=== PATIENT | female | born 1945 | race Caucasian/White ===

== ENCOUNTER 2017-08-01 08:04 | Emergency (ER) | payer MEDICARE, OTHER ==
[2017-08-01 08:20] LABS: Appearance VERY CLOUDY (CLEAR); Bilirubin NEGATIVE (NEGATIVE); Blood 250 Ery/ul (0-5); Glucose NEGATIVE (NEGATIVE); Ketones NEGATIVE (NEGATIVE); Leukocyte Esterase 2+ (NEGATIVE); Nitrite POSITIVE (NEGATIVE); Protein,Urine Dip 300 (Negative); Urobilinogen NORMAL mg/dL (0-1)
[2017-08-01 08:26] LABS: Bacteria MODERATE /HPF (NEGATIVE)
--- NOTE | 2017-08-01 08:48 | ERPHSYRPT ---
- History of Present Illness Time Seen by Provider: 08/01/17 08:12 Source: patient, family Patient Subjective Stated Complaint: PT REPORTS LOW ABD ET BACK PAIN-BEGAN URINATING BLOOD VAMSHI 0630 THIS AM-PT HAS HX OF EPISODES LIKE THIS-PT REPORTS HER UROLOGIST DR NEL[place] IN [place] WAS SUPPOSED TO BE TAKING KEFLEX BUT IT UPSET HER STOMACH SO SHE STOPPED TAKING IT Triage Nursing Assessment: PT PINK WARM ET ROP-ERQNB-CAL TENDER TO PALP-OBVIOUS GROSS BLOOD IN URINE-RESP EASY ET NONLABORED Physician History: CC: blood in urine Hx: 72 y/o patient of Dr Reg Pink and Dr Nelson urology in [place]. She has hx of interstitial cystitis with recurrent blood and infection. Last treated with abtx a month ago. She was placed on keflex for suppression but was intolerant due to her stomach upset. She is allergic to sulfa. She now has recurrent blood in urine, burning and pressure. No fever, chills, back pain, or vomiting/nausea. She has DM. Timing/Duration: today Allergies/Adverse Reactions: Sulfa (Sulfonamide Antibiotics) [Sulfa(Sulfonamide Antibiotics)] Allergy (Severe , Verified 08/01/17 08:12) Hives Home Medications: Citalopram 20 mg PO DAILY 05/28/12 [History] Lisinopril 10 mg [Zestril 10 MG] 10 mg PO DAILY 02/15/13 [History] Amlodipine Besylate 10 mg [Norvasc 10 MG] 10 mg PO DAILY 03/15/13 [History] Atenolol/Chlorthalidone [Tenoretic 50 Tablet] 50 mg PO DAILY 03/15/13 [History] Calcium Carbonate/Vitamin D3 [Caltrate 600 W-D Tablet] 1 each PO DAILY 03/15/13 [History] Platinum-3S/Dha/Epa/Fish Oil [Fish Oil 1,200 mg Softgel] 1 each PO DAILY 03/15/13 [ History] Potassium Chloride [Micro-K] 8 meq PO DAILY 03/15/13 [History] Tramadol HCl 50 mg [Ultram 50 mg] 50 mg PO Q6HPRN PRN 03/15/13 [History] Psyllium Husk [Fiber] 1 cap PO DAILY 12/12/13 [History] Bumetanide 1 mg [Bumex 1 mg] 1 mg PO DAILY 01/24/14 [History] Omeprazole 20 MG [Prilosec 20 mg] 40 mg PO DAILY 01/24/14 [History] Famotidine 20 mg [Pepcid 20 MG] 20 mg PO DAILY 07/04/14 [History] Hx Tetanus, Diphtheria Vaccination/Date Given: Yes Hx Influenza Vaccination/Date Given: Yes Hx Pneumococcal Vaccination/Date Given: Yes - Review of Systems Constitutional: Malaise, No Fever, No Chills Eyes: No Symptoms Ears, Nose, & Throat: No Symptoms Respiratory: No Cough Cardiac: No Chest Pain Abdominal/Gastrointestinal: No Abdominal Pain, No Nausea, No Vomiting Genitourinary Symptoms: Dysuria, Frequency, Hematuria, Hesitancy, Urgency Musculoskeletal: No Back Pain Skin: No Rash Neurological: No Headache All Other Systems: Reviewed and Negative - Past Medical History Pertinent Past Medical History: Yes Neurological History: Peripheral Neuropathy ENT History: Cataracts Cardiac History: High Cholesterol, Hypertension Respiratory History: No Pertinent History Endocrine Medical History: Diabetes Type II Musculoskeletal History: No Pertinent History GI Medical History: Gallbladder Disease, GI Bleed, Ulcer History: Other Psycho-Social History: Anxiety Female Reproductive Disorders: No Pertinent History Other Medical History: interstitial nephritis, neck fusion with metal - Past Surgical History Past Surgical History: Yes Neuro Surgical History: No Pertinent History Cardiac: No Pertinent History Respiratory: No Pertinent History Gastrointestinal: Cholecystectomy Genitourinary: No Pertinent History Musculoskeletal: Orthopedic Surgery Female Surgical History: Hysterectomy Other Surgical History: rt knee surgery,Metal plate in neck - Social History Smoking Status: Never smoker Exposure to second hand smoke: No Drug Use: none Patient Lives Alone: No - Female History Hx Now: No - Nursing Vital Signs Nursing Vital Signs: Initial Vital Signs Temperature 97.7 F 08/01/17 08:18 Pulse Rate 71 08/01/17 08:18 Respiratory Rate 20 08/01/17 08:18 Blood Pressure 167/92 08/01/17 08:18 O2 Sat by Pulse Oximetry 97 08/01/17 08:18 Pain Scale Pain Intensity 10 - Physical Exam General Appearance: alert Eye Exam: PERRL/EOMI Ears, Nose, Throat Exam: normal ENT inspection, moist mucous membranes Neck Exam: normal inspection, non-tender, supple Respiratory Exam: normal breath sounds Cardiovascular Exam: regular rate/rhythm Gastrointestinal/Abdomen Exam: soft, No tenderness, No distention Extremity Exam: normal inspection, normal range of motion Neurologic Exam: alert, oriented x 3, cooperative Skin Exam: warm, dry, No rash SpO2 Interpretation: normal SpO2: 97 Oxygen Delivery: Room Air - Course Nursing assessment & vital signs reviewed: Yes Ordered Tests: Active Orders 24 hr Category Date Time Status Clean Catch Urine Specimen STAT Care 08/01/17 08:12 Active CULTURE,URINE Stat Lab 08/01/17 08:12 Received UA W/ MICROSCOPIC Stat Lab 08/01/17 08:12 Completed Lab/Rad Data: Laboratory Results 08/01/17 Range/Units 08:12 Ur Collection Type CLEAN CATCH Urine Color RED (YELLOW) Urine Appearance VERY CLOUDY (CLEAR) Urine pH 8.0 (5-6) Ur Specific [place] 1.010 (1.005-1.025) Urine Protein 300 (Negative) Urine Ketones NEGATIVE (NEGATIVE) Urine Blood 250 (0-5) Roshan/ul Urine Nitrite POSITIVE (NEGATIVE) Urine Bilirubin NEGATIVE (NEGATIVE) Urine Urobilinogen NORMAL (0-1) mg/dL Ur Leukocyte Esterase 2+ (NEGATIVE) Urine Microscopic RBC >100 (0-2) /HPF Urine Microscopic WBC 10-15 (0-5) /HPF Urine Bacteria MODERATE (NEGATIVE) /HPF Urine Culture Reflexed YES (NO) Urine Glucose NEGATIVE (NEGATIVE) mg/dL Specimen Received 08/01/17 0815 - Progress Progress Note: 08/01/17 08:45 Gross hematuria. UA appears to have infection with nitrites and 2+ leuk. She has had cipro in past and wants to take cipro and pyridium. Counseled pt/family regarding: lab results, diagnosis, need for follow-up - Departure Time of Disposition: 08:46 Departure Disposition: Home Clinical Impression: UTI (urinary tract infection), Hematuria, Interstitial cystitis Condition: Stable Critical Care Time: No Referrals: YAMILA PINK [Primary Care Provider] - Instructions: Hematuria, Urinary Tract Infection (UTI) Additional Instructions: Rx cipro to [facility] Rx pyridium to [facility] follow up with dr Nelson Return for vomiting, fever, or concerns. Prescriptions: Ciprofloxacin [Cipro 500 MG] 1 tab PO BID #20 tablet Phenazopyridine HCl 200 mg [Pyridium 200 mg] 1 tab PO TID #6 tablet
[2017-08-01 09:07] VITALS: BP 170/77; PULSE 80; O2SAT 99
== END 2017-08-01 09:09 | disposition home or self-care (01) ==
LOC: ED 08:04
DX: N39.0 Urinary tract infection, site not specified (principal); N30.11 Interstitial cystitis (chronic) with hematuria
CPT/HCPCS: 81000; 87086; 99281

== ENCOUNTER 2017-08-06 10:32 | Emergency (ER) | payer MEDICARE, OTHER ==
[2017-08-06 10:44] VITALS: O2SAT 99
[2017-08-06] MEDS ORDERED: Sodium Chloride 0.9% 1000 ML 1,000 ML IV STA (11:10)
[2017-08-06] MEDS ORDERED: Levofloxacin 500MG/100ML D5W 500 MG/100 ML BAG IV STA (11:14)
--- NOTE | 2017-08-06 11:19 | ERPHSYRPT ---
- History of Present Illness Time Seen by Provider: 08/06/17 11:00 Source: patient Exam Limitations: clinical condition Patient Subjective Stated Complaint: PT REPORTS HAVING BLOOD IN URINE BEGINNING THIS MORNING-PT HAD INCIDENT A FEW DAYS AGO FOR HEMATURIA ET WAS TX-CURRENTLY TAKING CIPRO-REPORTS INCREASED LOW BACK PAIN WITH NO FEVER-DENIES LIFTING OR PULLING DENIES INJURY Triage Nursing Assessment: PT PINK WARM ET [id number] WITH NO DIFFICULTIES-ABD SOFT ET TENDER TO PALP-DENIES DIFFICULTY WITH BOWELS Physician History: PATIENT WITH A HISTORY OF HYPERTENSION, AND INTERSTITIAL CYSTITIS, TREATED WITH ANTIBIOTIC 1 MONTH AGO, EVALUATED IN EMERGENCY ROOM ON 08/01/2017 FOR ONSET OF HEMATURIA, PLACED ONTO ANTIBIOTIC CIPRO 500MG BID FOR 10 DAYS AND PYRIDIUM FOR 2 DAYS. RETURN TODAY WITH HEMATURIA AND ABDOMINAL PRESSURE. DENIES NAUSEA, EMESIS, FEVER OR CHILLS. Timing/Duration: day(s) Activites at Onset: none Quality: burning, pressure Allergies/Adverse Reactions: Sulfa (Sulfonamide Antibiotics) [Sulfa(Sulfonamide Antibiotics)] Allergy (Severe , Verified 08/06/17 10:44) Hives Home Medications: Lisinopril 10 mg [Zestril 10 MG] 10 mg PO DAILY 02/15/13 [History] Amlodipine Besylate 10 mg [Norvasc 10 MG] 10 mg PO DAILY 03/15/13 [History] Atenolol/Chlorthalidone [Tenoretic 50 Tablet] 50 mg PO DAILY 03/15/13 [History] Calcium Carbonate/Vitamin D3 [Caltrate 600 W-D Tablet] 1 each PO DAILY 03/15/13 [History] Potassium Chloride [Micro-K] 8 meq PO DAILY 03/15/13 [History] Bumetanide 1 mg [Bumex 1 mg] 1 mg PO DAILY 01/24/14 [History] Famotidine 20 mg [Pepcid 20 MG] 20 mg PO DAILY 07/04/14 [History] Hx Tetanus, Diphtheria Vaccination/Date Given: Yes Hx Influenza Vaccination/Date Given: Yes Hx Pneumococcal Vaccination/Date Given: Yes - Past Medical History Pertinent Past Medical History: Yes Neurological History: Peripheral Neuropathy ENT History: Cataracts Cardiac History: High Cholesterol, Hypertension Respiratory History: No Pertinent History Endocrine Medical History: Diabetes Type II Musculoskeletal History: No Pertinent History GI Medical History: Gallbladder Disease, GI Bleed, Ulcer History: Other Psycho-Social History: Anxiety Female Reproductive Disorders: No Pertinent History Other Medical History: interstitial nephritis, neck fusion with metal - Past Surgical History Past Surgical History: Yes Neuro Surgical History: No Pertinent History Cardiac: No Pertinent History Respiratory: No Pertinent History Gastrointestinal: Cholecystectomy Genitourinary: No Pertinent History Musculoskeletal: Orthopedic Surgery Female Surgical History: Hysterectomy Other Surgical History: rt knee surgery,Metal plate in neck - Social History Smoking Status: Never smoker Exposure to second hand smoke: No Drug Use: none Patient Lives Alone: No - Female History Hx Now: No - Nursing Vital Signs Nursing Vital Signs: Initial Vital Signs Temperature 98.4 F 08/06/17 10:40 Pulse Rate 99 H 08/06/17 10:40 Respiratory Rate 20 08/06/17 10:40 Blood Pressure 142/87 08/06/17 10:40 O2 Sat by Pulse Oximetry 99 08/06/17 10:40 Pain Scale Pain Intensity 8 - Physical Exam SpO2: 99 Oxygen Delivery: Room Air Ordered Tests: Active Orders 24 hr Category Date Time Status BMP Stat Lab 08/06/17 11:35 Completed CBC W DIFF Stat Lab 08/06/17 11:35 Completed CULTURE,URINE Stat Lab 08/06/17 11:35 Received UA W/ MICROSCOPIC Stat Lab 08/06/17 11:35 Completed Medication Summary Generic Name Dose Route Start Last Admin Trade Name Freq PRN Reason Stop Dose Admin Sodium Chloride 1,000 mls @ 500 mls/hr 08/06/17 11:10 08/06/17 11:46 Sodium Chloride 0.9% 1000 Ml IV 08/06/17 13:09 500 mls/hr .Q2H STA Administration Discontinued Medications Generic Name Dose Route Start Last Admin Trade Name Freq PRN Reason Stop Dose Admin Levofloxacin/Dextrose 500 mg in 100 mls @ 100 mls/hr 08/06/17 11:14 08/06/17 11:46 Levofloxacin 500mg/100ml D5w IV 08/06/17 12:13 100 mls/hr STAT STA Administration Sodium Chloride Confirm 08/06/17 11:43 Sodium Chloride 0.9% 1000 Ml Administered 08/06/17 11:44 Dose 1,000 mls @ ud .ROUTE .STK-MED ONE Levofloxacin/Dextrose Confirm 08/06/17 11:44 Levofloxacin 500mg/100ml D5w Administered 08/06/17 11:45 Dose 500 mg in 100 mls @ ud IV .STK-MED ONE Lab/Rad Data: Laboratory Result Diagrams 08/06/17 11:35 08/06/17 11:35 Laboratory Results 08/06/17 08/06/17 08/06/17 Range/Units 11:35 11:35 11:35 WBC 6.7 (4.0-10.5) K/mm3 RBC 4.69 (4.1-5.4) M/mm3 Hgb 13.7 (12.0-16.0) gm/dl Hct 42.6 (35-47) % MCV 90.8 (78-100) fl MCH 29.2 (26-32) pg MCHC 32.2 (32-36) g/dl RDW 14.4 H (11.5-14.0) % Plt Count 168 (150-450) K/mm3 MPV 11.7 H (6-9.5) fl Gran % 54.8 (36.0-66.0) % Lymphocytes % 29.1 (24.0-44.0) % Monocytes % 9.1 (0.0-12.0) % Eosinophils % 6.7 H (0.00-5.0) % Basophils % 0.3 (0.0-0.4) % Basophils # 0.02 (0-0.4) Sodium 139 (136-145) mEq/L Potassium 3.7 (3.5-5.1) mEq/L Chloride 100 (98-107) mEq/L Carbon Dioxide 28.9 (21-32) mEq/L Anion Gap 13.5 (5-15) MEQ/L BUN 38 H (9-20) mg/dL Creatinine 1.44 H (0.55-1.30) mg/dl Estimated GFR 38 ML/MIN Glucose 153 H (70-110) MG/DL Calcium 9.4 (8.5-10.1) mg/dL Ur Collection Type CCMS Urine Color YELLOW (YELLOW) Urine Appearance SLIGHTLY CLOUDY (CLEAR) Urine pH 5.0 (5-6) Ur Specific [place] 1.010 (1.005-1.025) Urine Protein TRACE (Negative) Urine Ketones NEGATIVE (NEGATIVE) Urine Blood 250 (0-5) Roshan/ul Urine Nitrite NEGATIVE (NEGATIVE) Urine Bilirubin NEGATIVE (NEGATIVE) Urine Urobilinogen NORMAL (0-1) mg/dL Ur Leukocyte Esterase NEGATIVE (NEGATIVE) Urine Microscopic RBC >100 (0-2) /HPF Urine Microscopic WBC 25-50 (0-5) /HPF Ur Epithelial Cells RARE (FEW) /HPF Urine Culture Reflexed YES (NO) Urine Glucose NEGATIVE (NEGATIVE) mg/dL Specimen Received 08/06/17 1155 - Progress Progress Note: 08/06/17 12:32 ADMINISTERED IV NORMAL SALINE 500ML/HR, LEVAQUIN 500MG IVPB. Blood Culture(s) Obtained: No Antibiotics given: Yes (HAS BEEN ON CIPRO 500MG BID SINCE 08/01/2017, ADMINISTERD LEVAQUIN 500MG IVPB) - Departure Time of Disposition: 12:40 Departure Disposition: Home Clinical Impression: Chronic interstitial cystitis with hematuria, URINARY TRACT INFECTION Condition: Stable Critical Care Time: No Referrals: YAMILA PINK [Primary Care Provider] - Additional Instructions: CONTINUE ANTIBIOTIC CIPRO 500MG BID, AND WHEN COMPLETED BEGIN PRIMSOL DAILY DIRECTED. CONSULT YOUR UROLOGIST FOR FOLLOWUP.
[2017-08-06 11:41] VITALS: BP 130/66; PULSE 90
[2017-08-06] MEDS ORDERED: Sodium Chloride 0.9% 1000 ML 1,000 ML ONE (11:43)
[2017-08-06] MEDS ORDERED: Levofloxacin 500MG/100ML D5W 500 MG/100 ML BAG IV ONE (11:44)
[2017-08-06 11:54] LABS: BASOPHIL % 0.3 % (0.0-0.4); Basophil (Absolute #) 0.02 (0-0.4); Eosinophil % 6.7 % (0.00-5.0); Eosinophil (Absolute #) 0.45 (0-0.5); Granulocyte Absolute (ANC) 3.69 (1.4-6.9); Granulocytes % 54.8 % (36.0-66.0); Hematocrit 42.6 % (35-47); Hemoglobin 13.7 gm/dl (12.0-16.0); Lymphocyte (Absolute #) 1.96 (1.0-4.6); Lymphocytes % 29.1 % (24.0-44.0); Mean Cell Volume 90.8 fl (78-100); Mean Corpuscular Hemoglobin 29.2 pg (26-32); Mean Corpuscular Hgb Concent. 32.2 g/dl (32-36); Mean Platelet Volume 11.7 fl (6-9.5); Monocyte (Absolute #) 0.61 (0.0-1.3); Monocytes % 9.1 % (0.0-12.0); Platelet Count 168 K/mm3 (150-450); Red Blood Count 4.69 M/mm3 (4.1-5.4); Red Cell Distribution Width 14.4 % (11.5-14.0); White Blood Count 6.7 K/mm3 (4.0-10.5)
[2017-08-06 12:00] LABS: ANION GAP 13.5 MEQ/L (5-15); Calcium 9.4 mg/dL (8.5-10.1); Carbon Dioxide 28.9 mEq/L (21-32); Creatinine 1 1.44 mg/dl (0.55-1.30); Potassium 3.7 mEq/L (3.5-5.1)
[2017-08-06 12:13] LABS: Appearance SLIGHTLY CLOUDY (CLEAR); Leukocyte Esterase NEGATIVE (NEGATIVE); Nitrite NEGATIVE (NEGATIVE); Protein,Urine Dip TRACE (Negative)
[2017-08-06 12:14] LABS: Bilirubin NEGATIVE (NEGATIVE); Blood 250 Ery/ul (0-5); Epithelial Cells RARE /HPF (FEW); Glucose NEGATIVE (NEGATIVE); Ketones NEGATIVE (NEGATIVE); Urobilinogen NORMAL mg/dL (0-1); WBC 25-50 /HPF (0-5)
== END 2017-08-06 12:48 | disposition home or self-care (01) ==
LOC: ED 10:32
DX: N30.11 Interstitial cystitis (chronic) with hematuria (principal); N39.0 Urinary tract infection, site not specified
CPT/HCPCS: 36000; 36415; 80048; 81000; 85025; 87086; 96360; 96361; 96365; 99284; J1956

== ENCOUNTER 2018-03-14 07:48 | Observation (INO) | payer MEDICARE, OTHER ==
[2018-03-14] MEDS ORDERED: Catapres 0.1 MG PO ONE (08:24)
[2018-03-14] MEDS ORDERED: Catapres 0.1 MG ONE (08:30)
[2018-03-14] MEDS ORDERED: Sodium Chloride 0.9% 1000 ML 1,000 ML IV SCH (08:30)
[2018-03-14] MEDS ORDERED: Sodium Chloride 0.9% 1000 ML 1,000 ML ONE (08:31)
--- NOTE | 2018-03-14 08:32 | ERPHSYRPT ---
- History of Present Illness Time Seen by Provider: 03/14/18 08:10 Source: patient Exam Limitations: clinical condition Patient Subjective Stated Complaint: Pt states "I am supposed to get blood work done today anyway, but I slurred my words one time this morning and I have a weird headache and my family wanted me to come in." Triage Nursing Assessment: Pt alert and oriented X 3, skin pwd. PT ambulates with an upright steady gait, able to speak in clear full sentences. PT speech is clear, gaetano stroke scale is negative. Pt in no apparent distress. 5 5 Physician History: PATIENT WITH A HISTORY OF HYPERTENSION, TYPE 2 DIABETES, CORONARY ARTERY DISEASE COMPLAINS OF A SORETHROAT, NASAL DRAINAGE, SLIGHT FRONTAL HEADACHE FOR 2 DAYS. HAD ONSET OF SLURRED SPEECH THIS MORNING ASSOCIATED WITH RIGHT SIDED NUMBNESS, AND WEAKNESS TRANSIENTLY. DENIES BLURRED VISION, SLURRED SPEECH AND UNSTEADY GAIT. Timing/Duration: day(s) Severity: moderate Character of Deficits: altered sensation, impaired speech Deficits: no difficulties Baseline/Normal Cognition: alert oriented x 3 Current Cognition: alert oriented x 3 Baseline Gait: walks w/o assistance Associated Symptoms: headache ( SORETHROAT) Allergies/Adverse Reactions: Sulfa (Sulfonamide Antibiotics) [Sulfa(Sulfonamide Antibiotics)] Allergy (Severe , Verified 08/06/17 10:44) Hives Home Medications: Lisinopril 10 mg [Zestril 10 MG] 10 mg PO DAILY 02/15/13 [History] Calcium Carbonate/Vitamin D3 [Caltrate 600 W-D Tablet] 1 each PO DAILY 03/15/13 [History] Potassium Chloride [Micro-K] 8 meq PO DAILY 03/15/13 [History] Bumetanide 1 mg [Bumex 1 mg] 1 mg PO DAILY 01/24/14 [History] Famotidine 20 mg [Pepcid 20 MG] 20 mg PO DAILY 07/04/14 [History] Gabapentin 900 mg PO BID 03/14/18 [History] Metformin HCl 1,000 mg PO DAILY 03/14/18 [History] Tramadol HCl 50 mg [Ultram 50 mg] 50 mg PO BID 03/14/18 [History] Trimethoprim 100 mg PO DAILY 03/14/18 [History] Hx Tetanus, Diphtheria Vaccination/Date Given: No Hx Influenza Vaccination/Date Given: Yes Hx Pneumococcal Vaccination/Date Given: Yes Immunizations Up to Date: Yes - Review of Systems Constitutional: No Fever, No Chills Eyes: No Symptoms Ears, Nose, & Throat: Nose Congestion, Throat Pain (COMPLAINS OF SORETHROAT POINTS TO HER LOWER TRACHEA) Respiratory: No Symptoms, No Cough, No Dyspnea Cardiac: No Symptoms, No Chest Pain, No Edema, No Syncope Abdominal/Gastrointestinal: No Symptoms, No Abdominal Pain, No Nausea, No Vomiting, No Diarrhea Genitourinary Symptoms: No Symptoms, No Dysuria Musculoskeletal: No Back Pain, No Neck Pain Skin: No Rash Neurological: Headache, Parasthesia, No Dizziness, No Focal Weakness, No Sensory Changes Psychological: No Symptoms Endocrine: No Symptoms All Other Systems: Reviewed and Negative - Past Medical History Pertinent Past Medical History: Yes Neurological History: Peripheral Neuropathy ENT History: Cataracts Cardiac History: High Cholesterol, Hypertension Respiratory History: No Pertinent History Endocrine Medical History: Diabetes Type II Musculoskeletal History: No Pertinent History GI Medical History: Gallbladder Disease, GI Bleed, Ulcer History: Other Psycho-Social History: Anxiety Female Reproductive Disorders: No Pertinent History Other Medical History: interstitial nephritis, neck fusion with metal - Past Surgical History Past Surgical History: Yes Neuro Surgical History: No Pertinent History Cardiac: No Pertinent History Respiratory: No Pertinent History Gastrointestinal: Cholecystectomy Genitourinary: No Pertinent History Musculoskeletal: Orthopedic Surgery Female Surgical History: Hysterectomy Other Surgical History: rt knee surgery,Metal plate in neck - Social History Smoking Status: Never smoker Exposure to second hand smoke: No Drug Use: none Patient Lives Alone: No - Female History Hx Now: No - Nursing Vital Signs Nursing Vital Signs: Initial Vital Signs Temperature 98.8 F 03/14/18 07:55 Pulse Rate 68 03/14/18 07:55 Respiratory Rate 16 03/14/18 07:55 Blood Pressure 201/89 03/14/18 07:55 O2 Sat by Pulse Oximetry 97 03/14/18 07:55 Pain Scale Pain Intensity 4 - Physical Exam General Appearance: no apparent distress, alert Eye Exam: bilateral eye: PERRL, EOMI Ears, Nose, Throat Exam: normal ENT inspection, moist mucous membranes Neck Exam: normal inspection, non-tender, supple Respiratory: normal breath sounds, lungs clear, airway intact, No respiratory distress Cardiovascular: regular rate/rhythm, normal heart sounds, No edema Gastrointestinal: soft, normal bowel sounds (NONTENDER), No tenderness, No distention Back Exam: normal inspection Extremity Exam: normal inspection, No pedal edema Peripheral Pulses: carotid (R): 2+, carotid (L): 2+, femoral (R): 2+, femoral (L ): 2+, dorsalis-pedis (R): 2+, dorsalis-pedis (L): 2+ 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, 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 Exam: normal hearing, normal speech, PERRL, tongue midline Coordination/Gait: normal finger to nose, normal gait Motor/Sensory: no motor deficit, no sensory deficit (NIH STROKE SCALE NEGATIVE) DTR: bicep (R): 2+, bicep (L): 2+, tricep (R): 2+, tricep (L): 2+, knee (R): 2+ , knee (L): 2+, ankle (R): 2+ Skin Exam: normal color, warm, dry, No rash SpO2 Interpretation: normal SpO2: 97 Oxygen Delivery: Room Air - Course EKG Interpreted by Me: RATE, Sinus Rhythm (RATE 55, NO ISCHEMIC CHANGES), Sinus Jordin, NORMAL AXIS - Radiology Exams Chest X-ray Interpretation: Discussed w/ radiologist, Negative - CT Exams Head CT Interpretation: Discussed w/radiologist, Tele-radiologist Report, No/ Intracranial Hemorrhag Ordered Tests: Active Orders 24 hr Category Date Time Status Up Ad Rupali ROUTINE Activity 03/14/18 10:44 Active Accucheck ACHS Care 03/14/18 10:43 Active Call Admit Doctor for Orders ON ADMISSION Care 03/14/18 10:44 Active Trousseau Consultant STAT Care 03/14/18 08:24 Active Clean Catch Urine Specimen STAT Care 03/14/18 08:22 Active Code Status Order ROUTINE Care 03/14/18 10:43 Active EKG-ER Only STAT Care 03/14/18 08:22 Active IV Care Q6H Care 03/14/18 10:43 Active Neuro Checks Q4H Care 03/14/18 10:43 Active Oxygen-ED Only NASAL CANNULA 2 lpm Care 03/14/18 08:[address] in Observation ROUTINE Care 03/14/18 10:43 Active Telemetry ROUTINE Care 03/14/18 10:43 Active Vital Signs Q4H Care 03/14/18 10:43 Active 1800 Calorie ADA Diet 03/14/18 Dinner Active CHEST 1 VIEW (PORTABLE) Stat Exams 03/14/18 08:23 Completed HEAD WITHOUT CONTRAST [CT] Stat Exams 03/14/18 08:23 Completed BLOOD CULTURE Stat Lab 03/14/18 10:30 Received CBC W DIFF Stat Lab 03/14/18 08:20 Completed CMP Stat Lab 03/14/18 08:20 Completed MAGNESIUM Stat Lab 03/14/18 08:20 Completed Manual Differential NC Stat Lab 03/14/18 08:20 Completed PROTIME WITH INR Stat Lab 03/14/18 08:20 Completed TROPONIN Q3H Lab 03/14/18 08:20 Completed TROPONIN Q3H Lab 03/14/18 11:30 Ordered TROPONIN Q3H Lab 03/14/18 14:30 Ordered TROPONIN Q3H Lab 03/14/18 17:30 Ordered TROPONIN Q3H Lab 03/14/18 20:30 Ordered UA W/ MICROSCOPIC Stat Lab 03/14/18 09:23 Completed Oxygen NASAL CANNULA 2 lpm RT 03/14/18 10:43 Active Transfer Order Routine Transfer 03/14/18 Ordered Medication Summary Generic Name Dose Route Start Last Admin Trade Name Freq PRN Reason Stop Dose Admin Acetaminophen 650 mg 03/14/18 10:43 Tylenol 325 Mg PO 04/13/18 10:42 Q4H PRN PRN PAIN AND/OR FEVER Bumetanide 1 mg 03/15/18 10:00 Bumex 1 Mg PO 04/14/18 09:59 DAILY ADAMA Gabapentin 900 mg 03/14/18 22:00 Neurontin 300 Mg PO 04/13/18 21:59 BID ADAMA Sodium Chloride 1,000 mls @ 50 mls/hr 03/14/18 08:30 03/14/18 08:33 Sodium Chloride 0.9% 1000 Ml IV 04/13/18 08:29 50 mls/hr .Q20H ADAMA Administration Ceftriaxone Sodium/Dextrose 1 g in 50 mls @ 100 mls/hr 03/15/18 10:00 Rocephin 1 Gm-D5w 50 Ml Bag IV 04/14/18 09:59 Q24H10 ADAMA Lisinopril 10 mg 03/15/18 10:00 Zestril 10 Mg PO 04/14/18 09:59 DAILY ADAMA Metformin HCl 1,000 mg 03/15/18 08:00 Glucophage 500 Mg PO 04/14/18 07:59 BREAKFAST ADAMA Tramadol HCl 50 mg 03/14/18 22:00 Ultram 50 Mg PO 04/13/18 21:59 BID ADAMA Discontinued Medications Generic Name Dose Route Start Last Admin Trade Name Ashley PRN Reason Stop Dose Admin Clonidine 0.1 mg 03/14/18 08:24 03/14/18 08:33 Catapres 0.1 Mg PO 03/14/18 08:25 0.1 mg STAT ONE Administration Clonidine Confirm 03/14/18 08:30 Catapres 0.1 Mg Administered 03/14/18 08:31 Dose 0.1 mg .ROUTE .STK-MED ONE Ceftriaxone Sodium/Dextrose 1 g in 50 mls @ 100 mls/hr 03/14/18 10:16 10:29 Rocephin 1 Gm-D5w 50 Ml Bag IV 03/14/18 10:45 100 mls/hr STAT STA Administration Ceftriaxone Sodium/Dextrose Confirm 03/14/18 10:28 Rocephin 1 Gm-D5w 50 Ml Bag Administered 03/14/18 10:29 Dose 1 g in 50 mls @ ud IV .STK-MED ONE Lab/Rad Data: Laboratory Result Diagrams 03/14/18 08:20 03/14/18 08:20 Laboratory Results 03/14/18 03/14/18 03/14/18 Range/Units Unknown 09:23 08:20 WBC (4.0-10.5) K/mm3 RBC (4.1-5.4) M/mm3 Hgb (12.0-16.0) gm/dl Hct (35-47) % MCV (78-100) fl MCH (26-32) pg MCHC (32-36) g/dl RDW (11.5-14.0) % Plt Count (150-450) K/mm3 MPV (6-9.5) fl Absolute Granulocytes (1.4-6.9) PT (9.95-12.35) SECONDS INR (0.8-3.0) Sodium (137-145) mmol/L Potassium (3.5-5.1) mmol/L Chloride (98-107) mmol/L Carbon Dioxide (22-30) mmol/L Anion Gap (5-15) MEQ/L BUN (7-17) mg/dL Creatinine (0.52-1.04) mg/dL Estimated GFR ML/MIN Glucose (74-106) mg/dL Calcium (8.4-10.2) mg/dL Magnesium 2.2 (1.6-2.3) mg/dL Total Bilirubin (0.2-1.3) mg/dL AST (14-36) U/L ALT (0-35) U/L Alkaline Phosphatase (38-126) U/L Troponin I (0.000-0.034) ng/mL Serum Total Protein (6.3-8.2) g/dL Albumin (3.5-5.0) g/dL Ur Collection Type CLEAN CATCH Urine Color YELLOW (YELLOW) Urine Appearance HAZY (CLEAR) Urine pH 5.0 (5-6) Ur Specific [place] 1.015 (1.005-1.025) Urine Protein NEGATIVE (Negative) Urine Ketones NEGATIVE (NEGATIVE) Urine Blood NEGATIVE (0-5) Roshan/ul Urine Nitrite NEGATIVE (NEGATIVE) Urine Bilirubin NEGATIVE (NEGATIVE) Urine Urobilinogen NORMAL (0-1) mg/dL Ur Leukocyte Esterase 2+ (NEGATIVE) Urine Microscopic RBC 0-2 (0-2) /HPF Urine Microscopic WBC 10-15 (0-5) /HPF Ur Epithelial Cells FEW (FEW) /HPF Urine Bacteria MODERATE (NEGATIVE) /HPF Urine Culture Reflexed NO (NO) Urine Glucose NEGATIVE (NEGATIVE) mg/dL Group A Strep Antibody NEGATIVE (NEGATIVE) Specimen Received 03-14-18 0900 03/14/18 03/14/18 03/14/18 Range/Units 08:20 08:20 08:20 WBC (4.0-10.5) K/mm3 RBC (4.1-5.4) M/mm3 Hgb (12.0-16.0) gm/dl Hct (35-47) % MCV (78-100) fl MCH (26-32) pg MCHC (32-36) g/dl RDW (11.5-14.0) % Plt Count (150-450) K/mm3 MPV (6-9.5) fl Absolute Granulocytes (1.4-6.9) PT 11.6 (9.95-12.35) SECONDS INR 1.00 (0.8-3.0) Sodium 144 (137-145) mmol/L Potassium 4.1 (3.5-5.1) mmol/L Chloride 109 H (98-107) mmol/L Carbon Dioxide 26 (22-30) mmol/L Anion Gap 13.3 (5-15) MEQ/L BUN 19 H (7-17) mg/dL Creatinine 0.79 (0.52-1.04) mg/dL Estimated GFR > 60.0 ML/MIN Glucose 101 (74-106) mg/dL Calcium 9.1 (8.4-10.2) mg/dL Magnesium (1.6-2.3) mg/dL Total Bilirubin 0.20 (0.2-1.3) mg/dL AST 39 H (14-36) U/L ALT 50 H (0-35) U/L Alkaline Phosphatase 84 (38-126) U/L Troponin I 0.016 (0.000-0.034) ng/mL Serum Total Protein 7.0 (6.3-8.2) g/dL Albumin 4.2 (3.5-5.0) g/dL Ur Collection Type Urine Color (YELLOW) Urine Appearance (CLEAR) Urine pH (5-6) Ur Specific [place] (1.005-1.025) Urine Protein (Negative) Urine Ketones (NEGATIVE) Urine Blood (0-5) Roshan/ul Urine Nitrite (NEGATIVE) Urine Bilirubin (NEGATIVE) Urine Urobilinogen (0-1) mg/dL Ur Leukocyte Esterase (NEGATIVE) Urine Microscopic RBC (0-2) /HPF Urine Microscopic WBC (0-5) /HPF Ur Epithelial Cells (FEW) /HPF Urine Bacteria (NEGATIVE) /HPF Urine Culture Reflexed (NO) Urine Glucose (NEGATIVE) mg/dL Group A Strep Antibody (NEGATIVE) Specimen Received 03/14/18 Range/Units 08:20 WBC 3.2 L (4.0-10.5) K/mm3 RBC 5.03 (4.1-5.4) M/mm3 Hgb 14.9 (12.0-16.0) gm/dl Hct 45.0 (35-47) % MCV 89.5 (78-100) fl MCH 29.6 (26-32) pg MCHC 33.1 (32-36) g/dl RDW 14.4 H (11.5-14.0) % Plt Count 142 L (150-450) K/mm3 MPV 11.4 H (6-9.5) fl Absolute Granulocytes 0.98 L (1.4-6.9) PT (9.95-12.35) SECONDS INR (0.8-3.0) Sodium (137-145) mmol/L Potassium (3.5-5.1) mmol/L Chloride (98-107) mmol/L Carbon Dioxide (22-30) mmol/L Anion Gap (5-15) MEQ/L BUN (7-17) mg/dL Creatinine (0.52-1.04) mg/dL Estimated GFR ML/MIN Glucose (74-106) mg/dL Calcium (8.4-10.2) mg/dL Magnesium (1.6-2.3) mg/dL Total Bilirubin (0.2-1.3) mg/dL AST (14-36) U/L ALT (0-35) U/L Alkaline Phosphatase (38-126) U/L Troponin I (0.000-0.034) ng/mL Serum Total Protein (6.3-8.2) g/dL Albumin (3.5-5.0) g/dL Ur Collection Type Urine Color (YELLOW) Urine Appearance (CLEAR) Urine pH (5-6) Ur Specific [place] (1.005-1.025) Urine Protein (Negative) Urine Ketones (NEGATIVE) Urine Blood (0-5) Roshan/ul Urine Nitrite (NEGATIVE) Urine Bilirubin (NEGATIVE) Urine Urobilinogen (0-1) mg/dL Ur Leukocyte Esterase (NEGATIVE) Urine Microscopic RBC (0-2) /HPF Urine Microscopic WBC (0-5) /HPF Ur Epithelial Cells (FEW) /HPF Urine Bacteria (NEGATIVE) /HPF Urine Culture Reflexed (NO) Urine Glucose (NEGATIVE) mg/dL Group A Strep Antibody (NEGATIVE) Specimen Received - Progress Progress: improved Progress Note: 03/14/18 08:33 ADMINISTERED CATAPRES0.1MG ORALLY, IMPROVEMENT IN BP 154/86 03/14/18 10:[address] Ruvalcaba (DISCUSSED WITH DR PINK AT 1035 FOR OBSERVATION) - Departure Time of Disposition: 11:00 Departure Disposition: Observation Clinical Impression: TRANSIENT ISCHEMIC ATTACK, HYPERTENSION, URINARY TRACT INFECTION Condition: Stable Critical Care Time: No Referrals: YAMILA PINK [Primary Care Provider] -
[2018-03-14 08:39] LABS: Granulocyte Absolute (ANC) 0.98 (1.4-6.9); Hemoglobin 14.9 gm/dl (12.0-16.0); Mean Cell Volume 89.5 fl (78-100); Mean Corpuscular Hemoglobin 29.6 pg (26-32); Mean Corpuscular Hgb Concent. 33.1 g/dl (32-36); Mean Platelet Volume 11.4 fl (6-9.5); Platelet Count 142 K/mm3 (150-450); Red Blood Count 5.03 M/mm3 (4.1-5.4); Red Cell Distribution Width 14.4 % (11.5-14.0); White Blood Count 3.2 K/mm3 (4.0-10.5)
[2018-03-14 08:51] LABS: ALBUMIN 4.2 g/dL (3.5-5.0); ALKALINE PHOSPHATASE 84 U/L (38-126); ANION GAP 13.3 MEQ/L (5-15); BLOOD UREA NITROGEN 19 mg/dL (7-17); CHLORIDE 109 mmol/L (98-107); Calcium 9.1 mg/dL (8.4-10.2); Carbon Dioxide 26 mmol/L (22-30); Creatinine 1 0.79 mg/dL (0.52-1.04); Glucose 101 mg/dL (74-106); Potassium 4.1 mmol/L (3.5-5.1); SGOT/AST 39 U/L (14-36); SGPT/ALT 50 U/L (0-35); SODIUM 144 mmol/L (137-145)
[2018-03-14 09:34] LABS: Appearance HAZY (CLEAR); Bilirubin NEGATIVE (NEGATIVE); Blood NEGATIVE Ery/ul (0-5); Glucose NEGATIVE (NEGATIVE); Ketones NEGATIVE (NEGATIVE); Leukocyte Esterase 2+ (NEGATIVE); Nitrite NEGATIVE (NEGATIVE); Protein,Urine Dip NEGATIVE (Negative); Specific Gravity 1.015 (1.005-1.025); Urobilinogen NORMAL mg/dL (0-1)
--- NOTE | 2018-03-14 09:50 | XRAY ---
Exam: CT of the head without IV contrast from 03/14/2018. CTDI: 70.80 Comparison: CT of the head without IV contrast from 11/03/2006. Indication: Slurred speech, numbness. Technique: Non-IV contrast axial images were obtained through the brain. Reconstructed coronal and sagittal images were created and reviewed. Findings: The ventricles appear of normal size and configuration. No focal mass effect or midline shift is seen. Bilateral basal ganglia calcifications are again seen representing no change from 11/03/2006. No acute intracranial bleed or abnormal extra-axial fluid collection is seen. I see no definite low attenuation lesion to suggest an acute or subacute territorial infarct. There are some subtle deep white matter periventricular and subcortical changes seen, likely due to mild chronic microvascular disease. Structures of the posterior fossa appear unremarkable. The cortical sulci and basilar cisterns appear unremarkable for age. The calvarium of the skull appears intact. There is some mucosal thickening within the upper anterior aspect of both ethmoid sinuses, right greater than left, and the frontal ethmoid recess on the left. I also note circumferential mucosal thickening about the right side of the sphenoid sinus and some lobular soft tissue density within the left side of the sphenoid sinus. There are no air-fluid levels. This is consistent with chronic sinus disease/sinusitis. This has worsened as compared to 11/03/2006. The mastoid air cells appear unremarkable. The globes of each eye and retro-orbital regions appear unremarkable. Impression: 1. I see no acute intracranial bleed or abnormal extra-axial fluid collection. 2. Subtle chronic small vessel ischemic white matter changes are seen which are believed to be due to chronic microvascular disease. An acute or subacute territorial infarct is not seen. 3. Bilateral basal ganglia calcifications representing no change from 11/03/2006. 3. Mild chronic sinus disease/chronic sinusitis, as discussed above. This is worse as compared to 11/03/2006. No air-fluid levels are seen.
--- NOTE | 2018-03-14 09:54 | XRAY ---
Exam: AP upright sitting portable chest film from 03/14/2018. Comparison: Two-view chest from 04/02/2016. Indication: Dyspnea. Findings: The transverse heart size appears within normal limits. Mild tortuosity of the descending thoracic aorta is seen. The remainder of the vic and mediastinal structures appears unremarkable. The lungs are adequately inflated. A couple tiny calcified granulomas are again seen within the peripheral right upper lung field. No air space infiltrates, vascular congestion, pneumothorax, or pleural fluid is seen. Minimal linear scarring or chronic plate atelectasis is seen at both lung bases. I don't believe this represents a significant change. No acute lung disease is seen. The visualized bones appear intact. Minor spurring is seen at the margins of the glenoid of each scapula. There is also minor degenerative change of the acromioclavicular joints, right greater than left. There is evidence of the lower cervical spine fusion surgery representing no change. Mild lateral osteophyte formation is seen within the thoracic spine. Impression: 1. No acute cardiopulmonary disease is seen. The findings are unchanged from 04/02/2016.
[2018-03-14 10:06] LABS: Bacteria MODERATE /HPF (NEGATIVE); Epithelial Cells FEW /HPF (FEW); RBC 0-2 /HPF (0-2)
[2018-03-14] MEDS ORDERED: ROCEPHIN 1 Gm-D5w 50 ml Bag** 1 G/50 ML IVPB IV STA (10:16)
[2018-03-14] MEDS ORDERED: ROCEPHIN 1 Gm-D5w 50 ml Bag** 1 G/50 ML IVPB IV ONE (10:28)
[2018-03-14] MEDS ORDERED: TYLENOL 325 MG PO PRN (10:43)
[2018-03-14 11:55] LABS: ANISOCYTOSIS 1+; ATYPICAL LYMPHS 2 %; Eosinophil 3 % (0.00-3.0); Lymphocytes 58 % (24-44); Monocyte 5 % (0.0-12.0); Neutrophils 32 % (36.0-66.0); Platelet Estimate NORMAL (NORMAL); Total Cells Counted 100
[2018-03-14] MEDS ORDERED: ULTRAM 50 MG PO SCH (12:00)
[2018-03-14] MEDS ORDERED: BUMEX 1 MG PO SCH (12:00)
[2018-03-14] MEDS ORDERED: NEURONTIN 300 MG PO SCH (12:00)
[2018-03-14] MEDS ORDERED: Zestril 10 MG PO SCH (12:00)
[2018-03-14] MEDS ORDERED: Glucophage 500 MG PO SCH (12:00)
[2018-03-14] MEDS ORDERED: MEDICATION INTERVENTION PO SCH (13:30)
[2018-03-14] MEDS ORDERED: ENOXAPARIN SODIUM SQ SCH (14:00)
[2018-03-14] MEDS ORDERED: Protonix 40MG Tablet PO SCH (14:00)
[2018-03-14] MEDS ORDERED: Zestril 20 MG PO SCH (14:00)
[2018-03-14] MEDS ORDERED: Ocuvite Tablet PO SCH (14:00)
[2018-03-14] MEDS ORDERED: Pepcid 20 MG PO SCH (14:00)
[2018-03-14] MEDS ORDERED: MAG-OX 400 PO SCH (14:00)
[2018-03-14] MEDS: ULTRAM 50 MG PO SCH ×2 (14:08→20:36)
[2018-03-14] MEDS: NEURONTIN 300 MG PO SCH ×2 (14:08→20:37)
[2018-03-14] MEDS: Klor Con 10 MEQ PO SCH ×2 (14:08→20:37)
[2018-03-14] MEDS: Apresoline 25 MG TABLET PO SCH ×2 (14:08→20:38)
[2018-03-14] MEDS ORDERED: POTASSIUM CHLORIDE 10 MEQ PO SCH (15:00)
--- NOTE | 2018-03-14 16:00 | XRAY ---
Exam: Bilateral duplex Doppler carotid ultrasound examination from 03/14/2018. Comparison: Bilateral duplex Doppler carotid ultrasound examination from 11/09/2006. Indication: 73-year-old female with TIA. Technique: Gorman scale images, color blood flow images, and Doppler tracings were obtained through both carotid arteries in the neck. Findings: On the right side, there is noted to be moderate fibrocalcific plaque along both the anterior and posterior margins of the common carotid artery bifurcation. Prominent calcified plaque extends along the posterior aspect of the proximal right internal carotid artery. Some flow disturbance with color-flow imaging is seen at this latter site. However, peak systolic flow velocities in centimeters per second measure 74 and 68 within the proximal and distal common carotid artery, 143 to 155 within the proximal external carotid artery, and 98 and 95 within the proximal and distal internal carotid artery. The peak systolic flow velocity ratio between the ICA and CCA is 1.4 which is not significantly elevated. The right vertebral artery reveals antegrade flow with a peak systolic flow velocity of 56 cm/s. On the left side, there is noted to be mild fibrocalcific plaque along the anterior aspect of the carotid bulb and moderate fibrocalcific plaque within the posterior aspect of the proximal to mid internal carotid artery. Some color flow disturbance is seen at this latter level. Peak systolic flow velocities in centimeters per second measure 110 and 77 within the proximal and distal common carotid artery, 126 within the external carotid artery, and 104 and 84 within the proximal and distal internal carotid artery. Peak systolic flow velocity ratio between the internal carotid artery and common carotid artery is 1.4 which is not significantly elevated. The left vertebral artery revealed a peak systolic flow velocity of 61 cm/s and antegrade flow. Impression: 1. Moderate fibrocalcific plaque is seen within both carotid artery bifurcations and proximal internal carotid arteries, a bit more prominent on the right than left. However, no significant increased peak systolic flow velocities are seen within either carotid artery to suggest a hemodynamically significant stenosis of 50% or greater diameter reduction. Marked calcific plaque is seen on the current study as compared to 11/09/2006. 2. Both vertebral arteries reveal antegrade flow.
--- NOTE | 2018-03-14 17:12 | PCM.HP ---
History of Present Illness - Chief Complaint Chief Complaint: TIA, HTN Date: 03/14/18 History of Present Illness: is a 73 year old female. who has been suffering from a sore throat for the last 4 days which is finally improving some today. She was taking an OTC cold medication that included aspirin, chlorpheneramine, dextromethorphan and phenylephrine. She awoke this morning and initially felt ok but was walking out to visit with her step daughter in the apartment complex around 7 am and began to feel strange. She had a heaviness on her right side without specific weakness and when her step daughter talked to her she had slurred speech at that time. No noted facial drooping or focal weakness. She came to the ER and prior to arrival it had all resolved. she currently feels well without any deficits no headache. THe throat pain is easing up today and still with some sinus congestion. No chest pain or shortness of breath. she has no dysuria or increased urinary frequency. - Review of Systems Constitutional: Fatigue, Weakness, No Fever, No Chills Eyes: No Symptoms Ears, Nose, & Throat: No Symptoms, Nose Congestion, Nose Discharge, Sinus Drainage, Throat Pain, Hoarse, Painful Swallowing Respiratory: No Cough, No Short Of Breath Cardiac: No Chest Pain, No Edema, No Syncope Abdominal/Gastrointestinal: No Abdominal Pain, No Nausea, No Vomiting, No Diarrhea Genitourinary Symptoms: No Dysuria Musculoskeletal: No Back Pain, No Neck Pain Skin: No Rash Neurological: No Dizziness, No Focal Weakness, No Sensory Changes Psychological: No Symptoms Endocrine: No Symptoms Hematologic/Lymphatic: No Symptoms Immunological/Allergic: No Symptoms Medications & Allergies Home Medications: Home Medication List Calcium Carbonate/Vitamin D3 [Caltrate 600 W-D Tablet] 1 each PO DAILY 03/15/13 [History Confirmed 03/14/18] Potassium Chloride [Micro-K] 10 meq PO TID 03/15/13 [History Confirmed 03/14/18] Nitroglycerin 0.4 mg Tablet [Nitrostat 0.4 MG Tablet] 0.4 mg SL UD #0 bottle 12/13/13 [Rx Confirmed 03/14/18] Famotidine 20 mg [Pepcid 20 MG] 20 mg PO DAILY 07/04/14 [History Confirmed 03/14/18] A/C/E/Zinc/Sod Selenate/Copper [Prosight Tablet] 1 each PO DAILY 03/14/18 [ History Confirmed 03/14/18] Calcium Carbonate/Vitamin D3 [Calcium 600 + Vit D Caplet] 1 mg PO DAILY [History Confirmed 03/14/18] Gabapentin 600 mg PO TID 03/14/18 [History Confirmed 03/14/18] HydrALAzine HCL 25 MG TAB [Apresoline 25 MG TABLET] 25 mg PO DAILY [History Confirmed 03/14/18] Lisinopril 40 mg PO DAILY 03/14/18 [History Confirmed 03/14/18] Magnesium Oxide 400 mg [Mag-Ox 400] 400 mg PO DAILY 03/14/18 [History Confirmed 03/14/18] Metformin HCl 500 mg PO DAILY 03/14/18 [History Confirmed 03/14/18] [place]-3 Fatty Acids/Fish Oil [Fish Oil 1,000 mg Capsule] 1 each PO DAILY [History Confirmed 03/14/18] Omeprazole 40 mg PO DAILY 03/14/18 [History Confirmed 03/14/18] Tramadol HCl 50 mg [Ultram 50 mg] 100 mg PO BID 03/14/18 [History Confirmed 03/14/18] Trimethoprim 100 mg PO DAILY 03/14/18 [History Confirmed 03/14/18] Allergies/Adverse Reactions: Allergies Allergy/AdvReac Type Severity Reaction Status Date / Time Sulfa (Sulfonamide Allergy Severe Hives Verified 08/06/17 10:44 Antibiotics) [Sulfa(Sulfonamide Antibiotics)] - Past Medical History Past Medical History: Yes Neurological History: Peripheral Neuropathy ENT History: Cataracts Cardiac History: High Cholesterol, Hypertension Respiratory History: No Pertinent History Endocrine Medical History: Diabetes Type II Musculoskelatal History: No Pertinent History GI Medical History: Gallbladder Disease, GI Bleed, Ulcer History: Other Pyscho-Social History: Anxiety Reproductive Disorders: No Pertinent History Comment: interstitial CYSTITIS, neck fusion with metal - Female History Are you now?: No - Past Surgical History Past Surgical History: Yes Neuro Surgical History: No Pertinent History Cardiac History: No Pertinent History Respiratory Surgery: No Pertinent History GI Surgical History: Cholecystectomy Genitourinary Surgical Hx: No Pertinent History Musculskeletal Surgical Hx: Orthopedic Surgery Female Surgical History: Hysterectomy Other Surgical History: rt knee surgery,Metal plate in neck - Social History Smoking Status: Never smoker Exposure to second hand smoke: No Alcohol: None Drug Use: none - Physical Exam Vital Signs: Vital Signs - 24 hr Temp Pulse Resp BP Pulse Ox 03/14/18 16:00 98.6 F 64 16 161/74 91 L 03/14/18 11:38 98.1 F 60 16 142/66 96 03/14/18 11:14 60 14 167/72 95 03/14/18 10:51 97 03/14/18 09:50 67 22 96 03/14/18 09:40 75 22 155/88 97 03/14/18 08:50 63 24 184/81 98 03/14/18 08:37 59 L 17 175/89 97 03/14/18 07:55 98.8 F 68 16 201/89 97 General Appearance: no apparent distress, alert Neurologic Exam: alert, oriented x 3, cooperative, normal mood/affect, nml cerebellar function, nml station & gait, sensation nml, No motor deficits Eye Exam: PERRL/EOMI, eyes nml inspection Ears, Nose, Throat Exam: normal ENT inspection, pharynx normal, moist mucous membranes Neck Exam: normal inspection, non-tender, supple, full range of motion Respiratory Exam: normal breath sounds, lungs clear, No respiratory distress Cardiovascular Exam: regular rate/rhythm, normal heart sounds, normal peripheral pulses Gastrointestinal/Abdomen Exam: soft, normal bowel sounds, No tenderness, No mass Back Exam: normal inspection, normal range of motion, No CVA tenderness, No vertebral tenderness Extremity Exam: normal inspection, normal range of motion, pelvis stable Skin Exam: normal color, warm, dry, No rash Lymphatic Exam: No adenopathy Results - Labs Lab/Micro Results: Accuchecks Accucheck Value: 108 Lab Results-Last 24 Hours 03/14/18 03/14/18 03/14/18 Range/Units 08:20 08:20 08:20 WBC 3.2 L (4.0-10.5) K/mm3 RBC 5.03 (4.1-5.4) M/mm3 Hgb 14.9 (12.0-16.0) gm/dl Hct 45.0 (35-47) % MCV 89.5 (78-100) fl MCH 29.6 (26-32) pg MCHC 33.1 (32-36) g/dl RDW 14.4 H (11.5-14.0) % Plt Count 142 L (150-450) K/mm3 MPV 11.4 H (6-9.5) fl Absolute Granulocytes 0.98 L (1.4-6.9) Segmented Neutrophils 32 L (36.0-66.0) % Lymphocytes (Manual) 58 H (24-44) % Monocytes (Manual) 5 (0.0-12.0) % Eosinophils (Manual) 3 (0.00-3.0) % Atypical Lymphocytes 2 % Platelet Estimate NORMAL (NORMAL) RBC Morphology ABNORMAL Anisocytosis 1+ PT 11.6 (9.95-12.35) SECONDS INR 1.00 (0.8-3.0) Sodium 144 (137-145) mmol/L Potassium 4.1 (3.5-5.1) mmol/L Chloride 109 H (98-107) mmol/L Carbon Dioxide 26 (22-30) mmol/L Anion Gap 13.3 (5-15) MEQ/L BUN 19 H (7-17) mg/dL Creatinine 0.79 (0.52-1.04) mg/dL Estimated GFR > 60.0 ML/MIN Glucose 101 (74-106) mg/dL Hemoglobin A1c (4.5-6.0) % Calcium 9.1 (8.4-10.2) mg/dL Magnesium (1.6-2.3) mg/dL Total Bilirubin 0.20 (0.2-1.3) mg/dL AST 39 H (14-36) U/L ALT 50 H (0-35) U/L Alkaline Phosphatase 84 (38-126) U/L Troponin I (0.000-0.034) ng/mL Serum Total Protein 7.0 (6.3-8.2) g/dL Albumin 4.2 (3.5-5.0) g/dL Ur Collection Type Urine Color (YELLOW) Urine Appearance (CLEAR) Urine pH (5-6) Ur Specific [place] (1.005-1.025) Urine Protein (Negative) Urine Ketones (NEGATIVE) Urine Blood (0-5) [place]/ul Urine Nitrite (NEGATIVE) Urine Bilirubin (NEGATIVE) Urine Urobilinogen (0-1) mg/dL Ur Leukocyte Esterase (NEGATIVE) Urine Microscopic RBC (0-2) /HPF Urine Microscopic WBC (0-5) /HPF Ur Epithelial Cells (FEW) /HPF Urine Bacteria (NEGATIVE) /HPF Urine Culture Reflexed (NO) Urine Glucose (NEGATIVE) mg/dL Group A Strep Antibody (NEGATIVE) Specimen Received 03/14/18 03/14/18 03/14/18 Range/Units 08:20 08:20 09:23 WBC (4.0-10.5) K/mm3 RBC (4.1-5.4) M/mm3 Hgb (12.0-16.0) gm/dl Hct (35-47) % MCV (78-100) fl MCH (26-32) pg MCHC (32-36) g/dl RDW (11.5-14.0) % Plt Count (150-450) K/mm3 MPV (6-9.5) fl Absolute Granulocytes (1.4-6.9) Segmented Neutrophils (36.0-66.0) % Lymphocytes (Manual) (24-44) % Monocytes (Manual) (0.0-12.0) % Eosinophils (Manual) (0.00-3.0) % Atypical Lymphocytes % Platelet Estimate (NORMAL) RBC Morphology Anisocytosis PT (9.95-12.35) SECONDS INR (0.8-3.0) Sodium (137-145) mmol/L Potassium (3.5-5.1) mmol/L Chloride (98-107) mmol/L Carbon Dioxide (22-30) mmol/L Anion Gap (5-15) MEQ/L BUN (7-17) mg/dL Creatinine (0.52-1.04) mg/dL Estimated GFR ML/MIN Glucose (74-106) mg/dL Hemoglobin A1c (4.5-6.0) % Calcium (8.4-10.2) mg/dL Magnesium 2.2 (1.6-2.3) mg/dL Total Bilirubin (0.2-1.3) mg/dL AST (14-36) U/L ALT (0-35) U/L Alkaline Phosphatase (38-126) U/L Troponin I 0.016 (0.000-0.034) ng/mL Serum Total Protein (6.3-8.2) g/dL Albumin (3.5-5.0) g/dL Ur Collection Type CLEAN CATCH Urine Color YELLOW (YELLOW) Urine Appearance HAZY (CLEAR) Urine pH 5.0 (5-6) Ur Specific [place] 1.015 (1.005-1.025) Urine Protein NEGATIVE (Negative) Urine Ketones NEGATIVE (NEGATIVE) Urine Blood NEGATIVE (0-5) Ros[place]/ul Urine Nitrite NEGATIVE (NEGATIVE) Urine Bilirubin NEGATIVE (NEGATIVE) Urine Urobilinogen NORMAL (0-1) mg/dL Ur Leukocyte Esterase 2+ (NEGATIVE) Urine Microscopic RBC 0-2 (0-2) /HPF Urine Microscopic WBC 10-15 (0-5) /HPF Ur Epithelial Cells FEW (FEW) /HPF Urine Bacteria MODERATE (NEGATIVE) /HPF Urine Culture Reflexed NO (NO) Urine Glucose NEGATIVE (NEGATIVE) mg/dL Group A Strep Antibody (NEGATIVE) Specimen Received 03-14-18 0900 03/14/18 03/14/18 03/14/18 Range/Units 11:41 14:36 Unknown WBC (4.0-10.5) K/mm3 RBC (4.1-5.4) M/mm3 Hgb (12.0-16.0) gm/dl Hct (35-47) % MCV (78-100) fl MCH (26-32) pg MCHC (32-36) g/dl RDW (11.5-14.0) % Plt Count (150-450) K/mm3 MPV (6-9.5) fl Absolute Granulocytes (1.4-6.9) Segmented Neutrophils (36.0-66.0) % Lymphocytes (Manual) (24-44) % Monocytes (Manual) (0.0-12.0) % Eosinophils (Manual) (0.00-3.0) % Atypical Lymphocytes % Platelet Estimate (NORMAL) RBC Morphology Anisocytosis PT (9.95-12.35) SECONDS INR (0.8-3.0) Sodium (137-145) mmol/L Potassium (3.5-5.1) mmol/L Chloride (98-107) mmol/L Carbon Dioxide (22-30) mmol/L Anion Gap (5-15) MEQ/L BUN (7-17) mg/dL Creatinine (0.52-1.04) mg/dL Estimated GFR ML/MIN Glucose (74-106) mg/dL Hemoglobin A1c (4.5-6.0) % Calcium (8.4-10.2) mg/dL Magnesium (1.6-2.3) mg/dL Total Bilirubin (0.2-1.3) mg/dL AST (14-36) U/L ALT (0-35) U/L Alkaline Phosphatase (38-126) U/L Troponin I < 0.012 < 0.012 (0.000-0.034) ng/mL Serum Total Protein (6.3-8.2) g/dL Albumin (3.5-5.0) g/dL Ur Collection Type Urine Color (YELLOW) Urine Appearance (CLEAR) Urine pH (5-6) Ur Specific [place] (1.005-1.025) Urine Protein (Negative) Urine Ketones (NEGATIVE) Urine Blood (0-5) [place]/ul Urine Nitrite (NEGATIVE) Urine Bilirubin (NEGATIVE) Urine Urobilinogen (0-1) mg/dL Ur Leukocyte Esterase (NEGATIVE) Urine Microscopic RBC (0-2) /HPF Urine Microscopic WBC (0-5) /HPF Ur Epithelial Cells (FEW) /HPF Urine Bacteria (NEGATIVE) /HPF Urine Culture Reflexed (NO) Urine Glucose (NEGATIVE) mg/dL Group A Strep Antibody NEGATIVE (NEGATIVE) Specimen Received 03/14/18 Range/Units Unknown WBC (4.0-10.5) K/mm3 RBC (4.1-5.4) M/mm3 Hgb (12.0-16.0) gm/dl Hct (35-47) % MCV (78-100) fl MCH (26-32) pg MCHC (32-36) g/dl RDW (11.5-14.0) % Plt Count (150-450) K/mm3 MPV (6-9.5) fl Absolute Granulocytes (1.4-6.9) Segmented Neutrophils (36.0-66.0) % Lymphocytes (Manual) (24-44) % Monocytes (Manual) (0.0-12.0) % Eosinophils (Manual) (0.00-3.0) % Atypical Lymphocytes % Platelet Estimate (NORMAL) RBC Morphology Anisocytosis PT (9.95-12.35) SECONDS INR (0.8-3.0) Sodium (137-145) mmol/L Potassium (3.5-5.1) mmol/L Chloride (98-107) mmol/L Carbon Dioxide (22-30) mmol/L Anion Gap (5-15) MEQ/L BUN (7-17) mg/dL Creatinine (0.52-1.04) mg/dL Estimated GFR ML/MIN Glucose (74-106) mg/dL Hemoglobin A1c 5.56 (4.5-6.0) % Calcium (8.4-10.2) mg/dL Magnesium (1.6-2.3) mg/dL Total Bilirubin (0.2-1.3) mg/dL AST (14-36) U/L ALT (0-35) U/L Alkaline Phosphatase (38-126) U/L Troponin I (0.000-0.034) ng/mL Serum Total Protein (6.3-8.2) g/dL Albumin (3.5-5.0) g/dL Ur Collection Type Urine Color (YELLOW) Urine Appearance (CLEAR) Urine pH (5-6) Ur Specific [place] (1.005-1.025) Urine Protein (Negative) Urine Ketones (NEGATIVE) Urine Blood (0-5) Roshan/ul Urine Nitrite (NEGATIVE) Urine Bilirubin (NEGATIVE) Urine Urobilinogen (0-1) mg/dL Ur Leukocyte Esterase (NEGATIVE) Urine Microscopic RBC (0-2) /HPF Urine Microscopic WBC (0-5) /HPF Ur Epithelial Cells (FEW) /HPF Urine Bacteria (NEGATIVE) /HPF Urine Culture Reflexed (NO) Urine Glucose (NEGATIVE) mg/dL Group A Strep Antibody (NEGATIVE) Specimen Received Accuchecks Accucheck Value: 108 - Radiology Impressions Radiology Exams & Impressions: Radiology Procedures Category Date Time Status CAROTID BILATERAL [US] Routine Exams 03/14/18 14:07 Completed CHEST 1 VIEW (PORTABLE) Stat Exams 03/14/18 08:23 Completed ECHO W/2D AND DOPPLER [US] Routine Exams 03/14/18 14:08 Taken HEAD WITHOUT CONTRAST [CT] Stat Exams 03/14/18 08:23 Completed - Other Procedures and Tests Respiratory Therapy 03/14/18 10:43 Oxygen NASAL CANNULA 2 lpm Assessment/Plan (1) TIA (transient ischemic attack) Current Visit: Yes Status: Acute Assessment & Plan: suspected based on symptoms and bp response no deficits now restart home bp meds check carotid u/s and echo tele aspirin now and start daily monitor overnight on telemetry the urine appears consistent with her chronic interstitial cystitis she is asymptomatic will await culture result she did receive rocephin in ED her wbc decrease and lymphocyte prominence is consistent with her history and suspected etiology of the viral pharyngitis stop decongestant she was using otc that may precipitate the attack lovenox for dvt ppx up ad shirley Code(s): G45.9 - TRANSIENT CEREBRAL ISCHEMIC ATTACK, UNSPECIFIED (2) Hypertensive urgency Current Visit: Yes Status: Acute Code(s): I16.0 - HYPERTENSIVE URGENCY (3) Interstitial cystitis Current Visit: Yes Status: Chronic Code(s): N30.10 - INTERSTITIAL CYSTITIS ( CHRONIC) WITHOUT HEMATURIA (4) Viral pharyngitis Current Visit: Yes Status: Acute Code(s): J02.9 - ACUTE PHARYNGITIS, UNSPECIFIED (5) Type 2 diabetes mellitus Current Visit: Yes Status: Chronic (6) GERD (gastroesophageal reflux disease) Current Visit: Yes Status: Chronic Code(s): K21.9 - GASTRO-ESOPHAGEAL REFLUX DISEASE WITHOUT ESOPHAGITIS
[2018-03-14] MEDS ORDERED: BABY ASPIRIN 81 MG CHEW PO ONE (17:16)
[2018-03-14] MEDS: PATIENT OWN MEDICATION PO SCH ×2 (17:35→18:11)
[2018-03-15 07:08] VITALS: BP 134/70; PULSE 58; O2SAT 97
--- NOTE | 2018-03-15 08:10 | PCM.DCORD ---
- Discharge Discharge Date: 03/15/18 Disposition: Home, Self-Care Condition: Stable Prescriptions: New Aspirin EC 325 mg [Ecotrin 325 MG] 325 mg PO QAM #30 tablet.ec Continue Potassium Chloride [Micro-K] 10 meq PO TID Nitroglycerin 0.4 mg Tablet [Nitrostat 0.4 MG Tablet] 0.4 mg SL UD #0 bottle Famotidine 20 mg [Pepcid 20 MG] 20 mg PO DAILY Trimethoprim 100 mg PO DAILY Tramadol HCl 50 mg [Ultram 50 mg] 100 mg PO BID Metformin HCl 500 mg PO DAILY Gabapentin 600 mg PO TID [place]-3 Fatty Acids/Fish Oil [Fish Oil 1,000 mg Capsule] 1 each PO DAILY Magnesium Oxide 400 mg [Mag-Ox 400] 400 mg PO DAILY Omeprazole 40 mg PO DAILY Lisinopril 40 mg PO DAILY A/C/E/Zinc/Sod Selenate/Copper [Prosight Tablet] 1 each PO DAILY Changed HydrALAzine HCL 25 MG TAB [Apresoline 25 MG TABLET] 25 mg PO TID #90 tablet Discontinued Calcium Carbonate/Vitamin D3 [Caltrate 600 W-D Tablet] 1 each PO DAILY Calcium Carbonate/Vitamin D3 [Calcium 600 + Vit D Caplet] 1 mg PO DAILY Follow up with: YAMILA PINK [Primary Care Provider] - 1 Week
--- NOTE | 2018-03-15 09:04 | ECHO ---
Transthoracic echocardiographic examination and color Doppler was done on 03/14/2018. INDICATION: Transient ischemic attack. IMPRESSION: 1) NO REGIONAL WALL MOTION ABNORMALITY. ESTIMATED GLOBAL LEFT VENTRICULAR EJECTION FRACTION 60%. 2) MILD MITRAL REGURGITATION. 3) TRACE AORTIC REGURGITATION. 4) MILD TRICUSPID REGURGITATION. RIGHT VENTRICULAR SYSTOLIC PRESSURE OF 21 MM OF MERCURY. 5) LEFT ATRIAL ENLARGEMENT. 6) LEFT VENTRICULAR HYPERTROPHY. 7) LEFT VENTRICULAR DIASTOLIC DYSFUNCTION. The left ventricle is visualized and demonstrated adequate motion of all the segments. Estimated global left ventricular ejection fraction around 60%. There is mild left ventricular hypertrophy. The mitral valve is seen and this opens adequately. There is mild mitral regurgitation. Left atrium is mildly enlarged. The aortic valve opens adequately. There is no significant gradient across the left ventricular outflow track. There is trace aortic regurgitation. The right side chambers are normal. There is trace tricuspid regurgitation. The right ventricular systolic pressure of 21 mm of [place]. Tissue Doppler study of the lateral mitral annulus suggestive of left ventricular diastolic dysfunction.
[2018-03-15] MEDS ORDERED: NON-FORMULARY ITEM (Omeprazole [Omeprazole] 40 MG) PO SCH (10:00)
[2018-03-15] MEDS ORDERED: NON-FORMULARY ITEM (Lisinopril [Lisinopril] 40 MG) PO SCH (10:00)
[2018-03-15] MEDS ORDERED: Ecotrin 325 MG PO SCH (10:00)
[2018-03-15] MEDS ORDERED: ROCEPHIN 1 Gm-D5w 50 ml Bag** 1 G/50 ML IVPB IV SCH (10:00)
--- NOTE | 2018-03-17 23:25 | PCM.DS ---
Discharge Summary Date of Admission: 03/14/18 11:20 Date of Discharge: 03/15/18 Admitting Physician: YAMILA PINK Primary Care Provider: YAMILA PINK Allergies Allergies Sulfa (Sulfonamide Antibiotics) [Sulfa(Sulfonamide Antibiotics)] Allergy (Severe , Verified 08/06/17 10:44) [facility] Summary - Hospital Course Hospital Course: she presented with acute onset slurred speech and right sided heaviness that sponatneously resolved prior to arrival. She was given aspirin, place on telemetry with no events, carotid us showed calcification and plaques without flow limiting stenosis and echo results are pending. she had no recurrence of symptoms. She was given 1 dose of clonidine 0.1 mg in ED and placed back on home bp meds and blood pressure improved. She had no new urinary symptoms and is being treated for chronic interstitial cystitis by urology. She was given a dose of Rocephin in the ED but this was stopped and she was continued on her chronic suppression therapy. Culture shows no growth thus far. She had been having severe sore throat and sinus congestion and taking otc cough medication with phenylephrine and several other ingredients and she was advised to stop this as it was likely contibuting to her acute htn. She was improving from the viral syndrome causing the sore throat and the decreased wbc - Vitals & Intake/Output Vital Signs: Vital Signs Temperature 97.7 F 03/15/18 07:07 Pulse Rate 58 L 03/15/18 07:07 Respiratory Rate 20 03/15/18 07:07 Blood Pressure 134/70 03/15/18 07:07 O2 Sat by Pulse Oximetry 97 03/15/18 07:07 Intake & Output: Intake & Output 03/15/18 03/16/18 03/17/18 03/18/18 11:59 11:59 11:59 11:59 Intake Total 2100 Output Total 400 Balance 1700 - Lab Result Diagrams: 03/14/18 08:20 03/14/18 08:20 Micro Results-Entire Visit: Microbiology 03/14/18 Unknown Urine Culture - Final Clean Catch Midstream MIXED TORI; 3 OR MORE TYPES. NO PREDOMINANT ORGANISM. NO FURTHER WORKUP. PLEASE RESUBMIT IF CLINICALLY INDICATED. 03/14/18 09:00 Blood Culture - Preliminary Blood NO GROWTH TO DATE 03/14/18 10:30 Blood Culture - Preliminary Blood NO GROWTH TO DATE - Procedures and Test Procedures and Tests throughout Hospitalization: Therapy Orders & Screens 03/14/18 10:43 Oxygen NASAL CANNULA 2 lpm Comment: Discharge Exam General Appearance: no apparent distress, alert Neurologic Exam: alert, oriented x 3, cooperative, normal mood/affect, nml cerebellar function, sensation nml, No motor deficits Skin Exam: normal color, warm, dry Eye Exam: PERRL, EOMI, eyes nml inspection Ears, Nose, Throat Exam: normal ENT inspection, pharynx normal, moist mucous membranes Neck Exam: normal inspection, non-tender, supple, full range of motion Respiratory Exam: normal breath sounds, lungs clear, No respiratory distress Cardiovascular Exam: regular rate/rhythm, normal heart sounds Gastrointestinal/Abdomen Exam: soft, No tenderness, No mass Extremity Exam: normal inspection, normal range of motion Back Exam: normal inspection, normal range of motion, No CVA tenderness, No vertebral tenderness Pelvic Exam: deferred Rectal Exam: deferred Final Diagnosis/Problem List - Final Discharge Diagnosis/Problem (1) TIA (transient ischemic attack) Status: Acute (2) Hypertensive urgency Status: Acute (3) Interstitial cystitis Status: Chronic (4) Viral pharyngitis Status: Acute (5) Type 2 diabetes mellitus Status: Chronic (6) GERD (gastroesophageal reflux disease) Status: Chronic - Discharge Disposition: Home, Self-Care Condition: Stable Prescriptions: New Aspirin EC 325 mg [Ecotrin 325 MG] 325 mg PO QAM #30 tablet.ec Continue Potassium Chloride [Micro-K] 10 meq PO TID Nitroglycerin 0.4 mg Tablet [Nitrostat 0.4 MG Tablet] 0.4 mg SL UD #0 bottle Famotidine 20 mg [Pepcid 20 MG] 20 mg PO DAILY Trimethoprim 100 mg PO DAILY Tramadol HCl 50 mg [Ultram 50 mg] 100 mg PO BID Metformin HCl 500 mg PO DAILY Gabapentin 600 mg PO TID [place]-3 Fatty Acids/Fish Oil [Fish Oil 1,000 mg Capsule] 1 each PO DAILY Magnesium Oxide 400 mg [Mag-Ox 400] 400 mg PO DAILY Omeprazole 40 mg PO DAILY Lisinopril 40 mg PO DAILY A/C/E/Zinc/Sod Selenate/Copper [Prosight Tablet] 1 each PO DAILY Changed HydrALAzine HCL 25 MG TAB [Apresoline 25 MG TABLET] 25 mg PO TID #90 tablet Discontinued Calcium Carbonate/Vitamin D3 [Caltrate 600 W-D Tablet] 1 each PO DAILY Calcium Carbonate/Vitamin D3 [Calcium 600 + Vit D Caplet] 1 mg PO DAILY Instructions: Heart Healthy Diet, High Blood Pressure (DC), Transient Ischemic Attack (DC) Follow up with: YAMILA PINK [Primary Care Provider] - 03/22/18 10:00 am Forms: Discharge Instructions
== END 2018-03-15 08:55 | disposition home or self-care (01) ==
LOC: ED 07:48 → MED SURG 11:20
PROVIDERS: ADMIT Family Medicine; ATTEND Family Medicine
DX: G45.9 Transient cerebral ischemic attack, unspecified (principal); I16.0 Hypertensive urgency; I10 Essential (primary) hypertension; N30.10 Interstitial cystitis (chronic) without hematuria; B08.5 Enteroviral vesicular pharyngitis; E11.9 Type 2 diabetes mellitus without complications; Z79.4 Long term (current) use of insulin; K21.9 Gastro-esophageal reflux disease without esophagitis; Z79.899 Other long term (current) drug therapy; G62.9 Polyneuropathy, unspecified; E78.00 Pure hypercholesterolemia, unspecified; F41.9 Anxiety disorder, unspecified; R20.0 Anesthesia of skin
CPT/HCPCS: 36415; 70450; 71045; 80053; 81000; 83036; 83735; 84484; 85025; 85610; 87040; 87086; 87651; 93005; 93041; 93268; 93306; 93880; 96360; 96361; 96365; 99285; J0696; J1650; A9270-GY; G0378

== ENCOUNTER 2018-08-29 08:32 | Observation (INO) | payer MEDICARE, OTHER ==
[2018-08-29] MEDS ORDERED: Sodium Chloride 0.9% 1000 ML 1,000 ML IV SCH (09:00)
--- NOTE | 2018-08-29 09:00 | ERPHSYRPT ---
- History of Present Illness Time Seen by Provider: 08/29/18 08:55 Source: patient, family Exam Limitations: no limitations Patient Subjective Stated Complaint: total left side heaviness Triage Nursing Assessment: Pt reports that she woke at 0600 and was fine and laid on the couch and must have fallen asleep, someone came to the door at 0800 that woke her up, when she got up she felt left sided "heaviness", she stated that she was bouncing off the terry and kept leaning to the left side, all neurological tests during assessment are normal, dizziness, denies N&V, headache , hypertension Physician History: The patient is a 73-year-old female with family complaining that when she got up off the couch at 8:00 this morning, she was leaning to the left and the room was spinning. She woke up at 6:00 this morning and was normal. She then laid on the couch until someone knocked at her door at 8:00. She does not know if she had problems between 6 and 8:00. She denies headache. She denies pain anywhere. She is now less dizzy and is able to walk better. She stated that her left leg and left arm were "heavy". Her past medical history significant for TIA, HTN, DM, GERD, CAD, hysterectomy, cholecystectomy, and knee surgery. Timing/Duration: today, hour(s) (2) Severity: mild Modifying Factors: Improves With: nothing Associated Symptoms: weakness Allergies/Adverse Reactions: Sulfa (Sulfonamide Antibiotics) [Sulfa(Sulfonamide Antibiotics)] Allergy (Severe , Verified 08/29/18 08:53) Hives Home Medications: Potassium Chloride [Micro-K] 10 meq PO TID 03/15/13 [History] A/C/E/Zinc/Sod Selenate/Copper [Prosight Tablet] 1 each PO DAILY 03/14/18 [ History] Gabapentin 600 mg PO TID 03/14/18 [History] Lisinopril 40 mg PO DAILY 03/14/18 [History] Magnesium Oxide 400 mg [Mag-Ox 400] 400 mg PO DAILY 03/14/18 [History] Metformin HCl 500 mg PO BID 03/14/18 [History] [place]-3 Fatty Acids/Fish Oil [Fish Oil 1,000 mg Capsule] 1 each PO DAILY [History] Omeprazole 40 mg PO DAILY 03/14/18 [History] Tramadol HCl 50 mg [Ultram 50 mg] 100 mg PO DAILY 03/14/18 [History] Trimethoprim 100 mg PO DAILY 03/14/18 [History] Nortriptyline HCl 10 mg PO HS 08/29/18 [History] Venlafaxine HCl 37.5 mg [Effexor 37.5 mg] 37.5 mg PO DAILY 08/29/18 [ History] Hx Tetanus, Diphtheria Vaccination/Date Given: No Hx Influenza Vaccination/Date Given: Yes Hx Pneumococcal Vaccination/Date Given: Yes - Review of Systems Constitutional: No Fever, No Chills Eyes: No Symptoms Ears, Nose, & Throat: No Symptoms Respiratory: No Cough, No Dyspnea Cardiac: No Chest Pain, No Edema, No Syncope Abdominal/Gastrointestinal: No Abdominal Pain, No Nausea, No Vomiting, No Diarrhea Genitourinary Symptoms: No Dysuria Musculoskeletal: No Back Pain, No Neck Pain Skin: No Rash Neurological: Dizziness, Vertigo Psychological: No Symptoms Endocrine: No Symptoms Hematologic/Lymphatic: No Symptoms Immunological/Allergic: No Symptoms All Other Systems: Reviewed and Negative - Past Medical History Pertinent Past Medical History: Yes Neurological History: Peripheral Neuropathy ENT History: Cataracts Cardiac History: High Cholesterol, Hypertension Respiratory History: No Pertinent History Endocrine Medical History: Diabetes Type II Musculoskeletal History: No Pertinent History GI Medical History: Gallbladder Disease, GI Bleed, Ulcer History: Other Psycho-Social History: Anxiety Female Reproductive Disorders: No Pertinent History Other Medical History: interstitial CYSTITIS, neck fusion with metal - Past Surgical History Past Surgical History: Yes Neuro Surgical History: No Pertinent History Cardiac: No Pertinent History Respiratory: No Pertinent History Gastrointestinal: Cholecystectomy Genitourinary: No Pertinent History Musculoskeletal: Orthopedic Surgery Female Surgical History: Hysterectomy Other Surgical History: rt knee surgery,Metal plate in neck - Social History Smoking Status: Never smoker Exposure to second hand smoke: No Drug Use: none Patient Lives Alone: Yes - Female History Hx Now: No - Nursing Vital Signs Nursing Vital Signs: Initial Vital Signs Pulse Rate 67 08/29/18 08:35 Respiratory Rate 18 08/29/18 08:35 Blood Pressure 192/76 08/29/18 08:35 O2 Sat by Pulse Oximetry 97 08/29/18 08:35 Pain Scale Pain Intensity [Head] 3 Pain Intensity 0 - Physical Exam General Appearance: no apparent distress, alert Eye Exam: PERRL/EOMI, eyes nml inspection Ears, Nose, Throat Exam: normal ENT inspection, TMs normal, pharynx normal, moist mucous membranes Neck Exam: normal inspection, non-tender, supple, full range of motion Respiratory Exam: normal breath sounds, lungs clear, No respiratory distress Cardiovascular Exam: regular rate/rhythm, normal heart sounds, normal peripheral pulses Gastrointestinal/Abdomen Exam: soft, normal bowel sounds, No tenderness, No mass Pelvic Exam: not done Rectal Exam: not done Back Exam: normal inspection, normal range of motion, No CVA tenderness, No vertebral tenderness Extremity Exam: normal inspection, normal range of motion, pelvis stable Neurologic Exam: alert, oriented x 3, cooperative, java scala developer II-XII nml as tested, normal mood/affect, nml cerebellar function, sensation nml, No disoriented, No confusion, No slurred speech, No dysarthria, No abnormal cerebellar tests, No abnormal java scala developer II-XII Skin Exam: normal color, warm, dry, No rash Lymphatic Exam: No adenopathy SpO2 Interpretation: normal SpO2: 97 O2 Delivery: Room Air - Course EKG Interpreted by Me: RATE, Sinus Rhythm, NORMAL AXIS, NORMAL INTERVALS, NORMAL QRS, NORMAL ST-T, Other (no change compared to EKG from 03/14/18.) Ordered Tests: Active Orders 24 hr Category Date Time Status Textile Chemist STAT Care 08/29/18 09:00 Active EKG-ER Only STAT Care 08/29/18 09:00 Active IV Insertion STAT Care 08/29/18 09:00 Active Orthostatic Vital Signs STAT Care 08/29/18 09:03 Active Tele-Health Consult ROUTINE Cons 08/29/18 10:54 Active MRI BRAIN W/O CONTRAST [MRI] Stat Exams 08/29/18 09:00 Completed CBC W DIFF Stat Lab 08/29/18 08:58 Completed CMP Stat Lab 08/29/18 08:58 Completed CULTURE,URINE Stat Lab 08/29/18 10:49 Received Lactic Acid Stat Lab 08/29/18 09:08 Completed PROTIME WITH INR Stat Lab 08/29/18 08:58 Completed TROPONIN Q3H Lab 08/29/18 08:58 Completed TROPONIN Q3H Lab 08/29/18 12:20 Received TROPONIN Q3H Lab 08/29/18 15:15 Ordered TROPONIN Q3H Lab 08/29/18 18:15 Ordered TROPONIN Q3H Lab 08/29/18 21:15 Ordered UA W/RFX UR CULTURE Stat Lab 08/29/18 10:49 Completed Medication Summary Generic Name Dose Route Start Last Admin Trade Name Freq PRN Reason Stop Dose Admin Sodium Chloride 1,000 mls @ 100 mls/hr 08/29/18 09:00 08/29/18 09:33 Sodium Chloride 0.9% 1000 Ml IV 09/28/18 08:59 100 mls/hr .Q10H ADAMA Administration Lisinopril 40 mg 08/29/18 10:00 08/29/18 09:33 Zestril 20 Mg PO 09/28/18 09:59 40 mg DAILY ADAMA Administration Discontinued Medications Generic Name Dose Route Start Last Admin Trade Name Freq PRN Reason Stop Dose Admin Hydralazine HCl 25 mg 08/29/18 09:02 08/29/18 09:33 Apresoline 25 Mg Tablet PO 08/29/18 09:03 25 mg QID STA Administration Lab/Rad Data: Laboratory Result Diagrams 08/29/18 08:58 08/29/18 08:58 Laboratory Results 08/29/18 08/29/18 08/29/18 Range/Units 10:49 09:08 08:58 WBC (4.0-10.5) K/mm3 RBC (4.1-5.4) M/mm3 Hgb (12.0-16.0) gm/dl Hct (35-47) % MCV (78-100) fl MCH (26-32) pg MCHC (32-36) g/dl RDW (11.5-14.0) % Plt Count (150-450) K/mm3 MPV (6-9.5) fl Gran % (36.0-66.0) % Eos # (Auto) (0-0.5) Absolute Lymphs (auto) (1.0-4.6) Absolute Monos (auto) (0.0-1.3) Lymphocytes % (24.0-44.0) % Monocytes % (0.0-12.0) % Eosinophils % (0.00-5.0) % Basophils % (0.0-0.4) % Absolute Granulocytes (1.4-6.9) Basophils # (0-0.4) PT (9.95-12.35) SECONDS INR (0.8-3.0) Sodium (137-145) mmol/L Potassium (3.5-5.1) mmol/L Chloride (98-107) mmol/L Carbon Dioxide (22-30) mmol/L Anion Gap (5-15) MEQ/L BUN (7-17) mg/dL Creatinine (0.52-1.04) mg/dL Estimated GFR ML/MIN Glucose (74-106) mg/dL Lactic Acid 1.8 (0.4-2.0) Calcium (8.4-10.2) mg/dL Total Bilirubin (0.2-1.3) mg/dL AST (14-36) U/L ALT (0-35) U/L Alkaline Phosphatase (38-126) U/L Troponin I < 0.012 (0.000-0.034) ng/mL Serum Total Protein (6.3-8.2) g/dL Albumin (3.5-5.0) g/dL Urine Color YELLOW (YELLOW) Urine Appearance CLEAR (CLEAR) Urine pH 7.0 (5-6) Ur Specific [place] 1.011 (1.005-1.025) Urine Protein NEGATIVE (Negative) Urine Ketones NEGATIVE (NEGATIVE) Urine Blood NEGATIVE (0-5) Roshan/ul Urine Nitrite NEGATIVE (NEGATIVE) Urine Bilirubin NEGATIVE (NEGATIVE) Urine Urobilinogen NEGATIVE (0-1) mg/dL Ur Leukocyte Esterase MODERATE (NEGATIVE) Urine WBC (Auto) 6-10 (0-5) /HPF Urine RBC (Auto) 0-2 (0-2) /HPF U Epithel Cells (Auto) FEW (FEW) /HPF Urine Bacteria (Auto) MODERATE (NEGATIVE) /HPF Urine Culture Reflexed YES (NO) Urine Glucose NEGATIVE (NEGATIVE) mg/dL 08/29/18 08/29/18 08/29/18 Range/Units 08:58 08:58 08:58 WBC 4.8 (4.0-10.5) K/mm3 RBC 4.58 (4.1-5.4) M/mm3 Hgb 13.9 (12.0-16.0) gm/dl Hct 42.5 (35-47) % MCV 92.8 (78-100) fl MCH 30.3 (26-32) pg MCHC 32.7 (32-36) g/dl RDW 13.5 (11.5-14.0) % Plt Count 166 (150-450) K/mm3 MPV 10.6 H (6-9.5) fl Gran % 43.8 (36.0-66.0) % Eos # (Auto) 0.16 (0-0.5) Absolute Lymphs (auto) 2.11 (1.0-4.6) Absolute Monos (auto) 0.39 (0.0-1.3) Lymphocytes % 44.1 H (24.0-44.0) % Monocytes % 8.2 (0.0-12.0) % Eosinophils % 3.3 (0.00-5.0) % Basophils % 0.6 (0.0-0.4) % Absolute Granulocytes 2.09 (1.4-6.9) Basophils # 0.03 (0-0.4) PT 11.5 (9.95-12.35) SECONDS INR 0.99 (0.8-3.0) Sodium 142 (137-145) mmol/L Potassium 4.2 (3.5-5.1) mmol/L Chloride 106 (98-107) mmol/L Carbon Dioxide 27 (22-30) mmol/L Anion Gap 12.8 (5-15) MEQ/L BUN 16 (7-17) mg/dL Creatinine 0.90 (0.52-1.04) mg/dL Estimated GFR > 60.0 ML/MIN Glucose 97 (74-106) mg/dL Lactic Acid (0.4-2.0) Calcium 9.0 (8.4-10.2) mg/dL Total Bilirubin 0.30 (0.2-1.3) mg/dL AST 27 (14-36) U/L ALT 27 (0-35) U/L Alkaline Phosphatase 85 (38-126) U/L Troponin I (0.000-0.034) ng/mL Serum Total Protein 6.5 (6.3-8.2) g/dL Albumin 3.9 (3.5-5.0) g/dL Urine Color (YELLOW) Urine Appearance (CLEAR) Urine pH (5-6) Ur Specific [place] (1.005-1.025) Urine Protein (Negative) Urine Ketones (NEGATIVE) Urine Blood (0-5) Rsohan/ul Urine Nitrite (NEGATIVE) Urine Bilirubin (NEGATIVE) Urine Urobilinogen (0-1) mg/dL Ur Leukocyte Esterase (NEGATIVE) Urine WBC (Auto) (0-5) /HPF Urine RBC (Auto) (0-2) /HPF U Epithel Cells (Auto) (FEW) /HPF Urine Bacteria (Auto) (NEGATIVE) /HPF Urine Culture Reflexed (NO) Urine Glucose (NEGATIVE) mg/dL - Progress Progress: improved Progress Note: 08/29/18 09:20 After evaluation of the patient, neurologically the patient is intact. If this had been a TIA, it is resolving or has resolved at this time. I was informed that the CT scanner is not operational at this time. I will order a head MRI emergently. 08/29/18 10:16 MRI of brain w/o contrast interpreted by Dr Lawton shows normal aging brain; negative for acute intracranial abnormalities; and incidental paranasal sinus disease. 08/29/18 12:43 Discussed pt with neurologist, Dr Dutta who recommends MRI of neck and EEG. Dr Escobar will accept pt. Discussed with : Jessica Will see patient in: hospital (observation) Counseled pt/family regarding: lab results, diagnosis, rad results - Departure Time of Disposition: 12:44 Departure Disposition: Observation (per Dr Escobar) Clinical Impression: Paresthesia, UTI (urinary tract infection) Condition: Stable Critical Care Time: No Referrals: ODILIA ESCOBAR [Primary Care Provider] -
[2018-08-29] MEDS ORDERED: Apresoline 25 MG TABLET PO STA (09:02)
[2018-08-29 09:09] LABS: BASOPHIL % 0.6 % (0.0-0.4); Basophil (Absolute #) 0.03 (0-0.4); Eosinophil % 3.3 % (0.00-5.0); Eosinophil (Absolute #) 0.16 (0-0.5); Granulocyte Absolute (ANC) 2.09 (1.4-6.9); Granulocytes % 43.8 % (36.0-66.0); Hematocrit 42.5 % (35-47); Hemoglobin 13.9 gm/dl (12.0-16.0); Lymphocyte (Absolute #) 2.11 (1.0-4.6); Lymphocytes % 44.1 % (24.0-44.0); Mean Cell Volume 92.8 fl (78-100); Mean Corpuscular Hemoglobin 30.3 pg (26-32); Mean Corpuscular Hgb Concent. 32.7 g/dl (32-36); Mean Platelet Volume 10.6 fl (6-9.5); Monocyte (Absolute #) 0.39 (0.0-1.3); Monocytes % 8.2 % (0.0-12.0); Platelet Count 166 K/mm3 (150-450); Red Blood Count 4.58 M/mm3 (4.1-5.4); Red Cell Distribution Width 13.5 % (11.5-14.0); White Blood Count 4.8 K/mm3 (4.0-10.5)
[2018-08-29 09:17] LABS: INR 0.99 (0.8-3.0); PROTIME 11.5 SECONDS (9.95-12.35)
[2018-08-29 09:21] LABS: ALBUMIN 3.9 g/dL (3.5-5.0); ALKALINE PHOSPHATASE 85 U/L (38-126); ANION GAP 12.8 MEQ/L (5-15); BLOOD UREA NITROGEN 16 mg/dL (7-17); CHLORIDE 106 mmol/L (98-107); Carbon Dioxide 27 mmol/L (22-30); Glucose 97 mg/dL (74-106); Potassium 4.2 mmol/L (3.5-5.1); SGOT/AST 27 U/L (14-36); SGPT/ALT 27 U/L (0-35); SODIUM 142 mmol/L (137-145); Total Protein 6.5 g/dL (6.3-8.2)
[2018-08-29] MEDS ORDERED: Zestril 20 MG PO SCH (10:00)
--- NOTE | 2018-08-29 10:13 | XRAY ---
Indication: Dizziness. Left facial numbness. Headache. Sagittal, coronal, and axial MRI brain was performed without contrast using T1, T2, FLAIR, diffusion, and ADC sequences. Comparison: None Age-appropriate global atrophy and mild periventricular degenerative micro-ischemia signal bilaterally. Brainstem demonstrates minimal degenerative micro-ischemia signal. Tiny remote lacunar infarct left cerebral peduncle. No acute intracranial hemorrhage, abnormal extra-axial fluid collection, or mass effect. Diffusion images are negative for restricted signal. Fourth ventricle is midline without hydrocephalus. 7/8 cranial nerve complex bilaterally symmetric. Normal flow-void signal within the major intracerebral circulation. Normal-appearing craniocervical junction and sella turcica. Mild mucosal thickening of the left sphenoid sinus. Impression: 1. Normal aging brain including atrophy and degenerative micro-ischemia. Remote lacunar infarct left cerebral peduncle. 2. Negative for acute intracranial abnormalities or evidence for evolving large vessel territorial stroke. 3. Incidental paranasal sinus disease.
[2018-08-29 10:55] LABS: Appearance CLEAR (CLEAR); Bacteria MODERATE /HPF (NEGATIVE); Bilirubin NEGATIVE (NEGATIVE); Blood NEGATIVE Ery/ul (0-5); Epithelial Cells FEW /HPF (FEW); Glucose NEGATIVE (NEGATIVE); Ketones NEGATIVE (NEGATIVE); Leukocyte Esterase MODERATE (NEGATIVE); Nitrite NEGATIVE (NEGATIVE); Protein,Urine Dip NEGATIVE (Negative); RBC 0-2 /HPF (0-2); Specific Gravity 1.011 (1.005-1.025); Urobilinogen NEGATIVE mg/dL (0-1)
[2018-08-29] MEDS ORDERED: ROCEPHIN 1 Gm-D5w 50 ml Bag** 1 G/50 ML IVPB IV STA (12:45)
[2018-08-29] MEDS ORDERED: ROCEPHIN 1 Gm-D5w 50 ml Bag** 1 G/50 ML IVPB IV ONE (12:51)
[2018-08-29] MEDS ORDERED: Zofran 4 MG/2 ML VIAL IV PRN (14:03)
[2018-08-29] MEDS ORDERED: TYLENOL 325 MG PO PRN (14:03)
--- NOTE | 2018-08-29 16:18 | XRAY ---
Indication: Left arm heaviness. Sagittal and axial MRI cervical spine performed without contrast using T1 and T2 weighted sequences. Comparison: June 17, 2009. Sagittal images again demonstrates normal alignment with interval C5-C7 fusion with new anterior hardware producing ferromagnetic artifact. Remaining cervical disks again demonstrates degenerative disc desiccation signal with little to no disc space narrowing. No acute fracture, subluxation, or abnormal bone marrow signal. Spinal cord is normal in course and caliber without signal abnormality. Normal-appearing craniocervical junction. New T2-T3 right paracentral disc bulge. Axial images at the C2-C3 level again negative for disc herniation, spinal canal, or foraminal stenosis. At the C3-C4 level, there is stable minimal broad-based disc bulge without disc herniation or canal stenosis. New left foraminal stenosis due to uncovertebral spurring. At the C4-C5 level, no disc herniation, spinal canal, or foraminal stenosis. The C5-C6-C7 levels limited by mild ferromagnetic artifact from anterior hardware. No obvious disc herniation, spinal canal, or foraminal stenosis. The C7-T1 level remains unremarkable. Impression: 1. Interval C4-C7 fusion surgery with anterior hardware producing ferromagnetic artifact. 2. Stable C3-C4 degenerative disc bulge with new left foraminal stenosis. 3. New T2-T3 right paracentral disc bulge without spinal canal or foraminal compromise. 4. Remaining MRI cervical spine negative for disc herniation or spinal canal stenosis.
[2018-08-29] MEDS ORDERED: MEDICATION INTERVENTION MC SCH (17:15)
[2018-08-29] MEDS: EFFEXOR 37.5 MG PO SCH (17:17)
[2018-08-29] MEDS: Klor Con 10 MEQ PO SCH ×2 (17:17→21:13)
[2018-08-29] MEDS: Glucophage 500 MG PO SCH (17:17)
[2018-08-29] MEDS: NEURONTIN 300 MG PO SCH ×2 (17:18→21:13)
[2018-08-29] MEDS: MAG-OX 400 PO SCH (17:18)
[2018-08-29] MEDS: Protonix 40MG Tablet PO SCH (17:19)
[2018-08-29] MEDS ORDERED: ULTRAM 50 MG PO SCH (18:00)
[2018-08-29] MEDS: Sodium Chloride 0.9% 1000 ML 1,000 ML IV SCH (19:47)
[2018-08-29] MEDS: ANTIVERT 25 MG PO SCH (21:13)
[2018-08-29] MEDS: Apresoline 25 MG TABLET PO SCH (21:13)
[2018-08-30 06:03] LABS: BASOPHIL % 0.5 % (0.0-0.4); Basophil (Absolute #) 0.02 (0-0.4); Eosinophil (Absolute #) 0.17 (0-0.5); Granulocyte Absolute (ANC) 1.94 (1.4-6.9); Granulocytes % 46.1 % (36.0-66.0); Hematocrit 40.2 % (35-47); Hemoglobin 12.9 gm/dl (12.0-16.0); Lymphocyte (Absolute #) 1.76 (1.0-4.6); Lymphocytes % 41.8 % (24.0-44.0); Mean Cell Volume 92.6 fl (78-100); Mean Corpuscular Hemoglobin 29.7 pg (26-32); Mean Corpuscular Hgb Concent. 32.1 g/dl (32-36); Mean Platelet Volume 10.6 fl (6-9.5); Monocyte (Absolute #) 0.32 (0.0-1.3); Monocytes % 7.6 % (0.0-12.0); Platelet Count 161 K/mm3 (150-450); Red Blood Count 4.34 M/mm3 (4.1-5.4); Red Cell Distribution Width 13.4 % (11.5-14.0); White Blood Count 4.2 K/mm3 (4.0-10.5)
[2018-08-30 06:24] LABS: ANION GAP 10.8 MEQ/L (5-15); BLOOD UREA NITROGEN 15 mg/dL (7-17); CHLORIDE 108 mmol/L (98-107); Calcium 8.5 mg/dL (8.4-10.2); Carbon Dioxide 27 mmol/L (22-30); Creatinine 1 0.85 mg/dL (0.52-1.04); Glucose 94 mg/dL (74-106); Potassium 4.2 mmol/L (3.5-5.1); SODIUM 142 mmol/L (137-145)
[2018-08-30] MEDS: Sodium Chloride 0.9% 1000 ML 1,000 ML IV SCH (06:27)
[2018-08-30 08:12] VITALS: BP 133/71; PULSE 68; O2SAT 95
[2018-08-30] MEDS: Glucophage 500 MG PO SCH (08:17)
--- NOTE | 2018-08-30 08:20 | PCM.DCORD ---
- Discharge Discharge Date: 08/30/18 Prescriptions: New Aspirin EC 81 mg [Ecotrin 81 mg] 81 mg PO DAILY #60 tablet.ec Clopidogrel Bisulfate 75 mg [PLAVIX 75 MG Tablet] 75 mg PO DAILY #30 tablet Continue Trimethoprim 100 mg PO DAILY Tramadol HCl 50 mg [Ultram 50 mg] 100 mg PO 1400 Metformin HCl 500 mg PO BID Gabapentin 600 mg PO TID [place]-3 Fatty Acids/Fish Oil [Fish Oil 1,000 mg Capsule] 2 each PO DAILY Magnesium Oxide 400 mg [Mag-Ox 400] 400 mg PO DAILY Omeprazole 40 mg PO DAILY Lisinopril 40 mg PO DAILY A/C/E/Zinc/Sod Selenate/Copper [Prosight Tablet] 1 each PO DAILY HydrALAzine HCL 25 MG TAB [Apresoline 25 MG TABLET] 25 mg PO TID #90 tablet Nortriptyline HCl 10 mg PO HS Venlafaxine HCl 37.5 mg [Effexor 37.5 mg] 37.5 mg PO DAILY L.acidoph,Paracasei, B.lactis [Probiotic] 1 each PO DAILY Potassium Chloride 10 Meq Tab* [Klor Con 10 MEQ] 10 meq PO TID Follow up with: ODILIA ESCOBAR [Primary Care Provider] - 1 Week
[2018-08-30] MEDS: ANTIVERT 25 MG PO SCH (08:59)
[2018-08-30] MEDS: MAG-OX 400 PO SCH (09:02)
[2018-08-30] MEDS: EFFEXOR 37.5 MG PO SCH (09:02)
[2018-08-30] MEDS: Apresoline 25 MG TABLET PO SCH (09:03)
[2018-08-30] MEDS: Protonix 40MG Tablet PO SCH (09:03)
[2018-08-30] MEDS: Klor Con 10 MEQ PO SCH (09:03)
[2018-08-30] MEDS: NEURONTIN 300 MG PO SCH (09:03)
[2018-08-30] MEDS ORDERED: NON-FORMULARY ITEM (Lisinopril [Lisinopril] 40 MG) PO SCH (10:00)
[2018-08-30] MEDS ORDERED: Acidophilus TABLET PO SCH (10:00)
[2018-08-30] MEDS ORDERED: PLAVIX 75 MG Tablet PO SCH (10:00)
[2018-08-30] MEDS ORDERED: ECOTRIN 81 MG PO SCH (10:00)
[2018-08-30] MEDS ORDERED: Zestril 20 MG PO SCH (10:00)
[2018-08-30] MEDS ORDERED: ROCEPHIN 1 Gm-D5w 50 ml Bag** 1 G/50 ML IVPB IV SCH (10:00)
[2018-08-30] MEDS ORDERED: FATTY ACIDS PO SCH (10:00)
[2018-08-30] MEDS ORDERED: Ocuvite Tablet PO SCH (10:00)
[2018-08-30] MEDS ORDERED: FISH OIL 1,000 MG CAPSULE PO SCH (10:00)
[2018-08-30] MEDS ORDERED: FISH OIL PO SCH (10:00)
[2018-08-30] MEDS ORDERED: NON-FORMULARY ITEM (L.Acidoph,Paracasei, B.Lactis [Probiotic] 1 EACH) PO SCH (10:00)
[2018-08-30] MEDS ORDERED: NON-FORMULARY ITEM (Omeprazole [Omeprazole] 40 MG) PO SCH (10:00)
[2018-08-30] MEDS ORDERED: OMEGA PO SCH (10:00)
--- NOTE | 2018-08-31 09:30 | SSS ---
DISCHARGE DIAGNOSES: 1) TRANSIENT ISCHEMIC ATTACK. 2) PREVIOUS CEREBROVASCULAR ACCIDENT. 3) HYPERTENSION. 4) CORONARY ARTERY DISEASE. 5) GASTROESOPHAGEAL REFLUX DISEASE. 6) DIABETES MELLITUS TYPE 2. HISTORY: The patient is a 73 year-old white female who apparently woke up at 6 o'clock feeling fine. She laid back down on the couch and fell asleep for a nap and someone came to the door at 8 o'clock and woke her up. When she got up she felt heaviness on the left side and found herself veering to the left and banging into her furniture. She reports she did have some spinning-type sensation with this as well. She was brought to the emergency room for evaluation and kept overnight for evaluation and management for possible transient ischemic attack and emergent stroke. PAST SURGICAL HISTORY: Hysterectomy. Cholecystectomy. MEDICATIONS: Her home medications are potassium 10 mEq t.i.d., gabapentin 600 mg t.i.d., lisinopril 40 mg a day, magnesium 400 mg a day, metformin 500 mg b.i.d., omeprazole 40 mg a day, tramadol 50 mg 2 tablets once a day for back pain, trimethoprim 100 mg daily for urinary tract infection prevention, nortriptyline 2 mg at night and venlafaxine 37.5 mg daily. ALLERGIES: SULFA. PHYSICAL EXAMINATION: Revealed a well nourished, well developed 73 year-old white female in no obvious distress at the present time with no obvious focal deficits and normal speech. Her vital signs show a pulse of 67, respiratory rate 18, blood pressure 192/76. O2 saturation 97% on room air. HEENT: Normocephalic, atraumatic. Pupils equal round reactive to light. Extraocular movements intact. Oropharynx is pink and moist. NECK: Supple without lymphadenopathy, thyromegaly or JVD. CHEST: Clear to auscultation. HEART: Regular rate and rhythm without murmurs, rubs or gallops. No bruits were heard in the neck. ABDOMEN: Soft. No palpable masses. EXTREMITIES: Without clubbing, cyanosis or edema. NEUROLOGIC: The patient is alert and oriented x3. No focal deficits noted. Her cerebellar functions appeared to be normal. LAB DATA AND TESTS: MRI of the cervical spine without contrast revealed previous surgery with C4-C7 fusion with hardware producing magnetic effect, stable C3-C4, degenerative disc bulging with left foraminal stenosis, new T2-T3 right paracentral disc bulge without spinal foraminal compromise. The patient had an EEG which was read as normal. She had a MRI of the brain showing normal aging brain including atrophied degenerative microischemic remote lacunar infarct in left cerebellar peduncle, negative for acute intracranial abnormalities. Her lab studies showed troponin less than 0.012. Lactic acid 1.8. International normalized ratio 0.99. Her metabolic panel was entirely normal with a sugar 97. CBC was entirely normal also. The platelets are 166,000. UA showed 6 to 10 white blood cells per high power field but negative nitrite. Hemoglobin A1C was 5.22. HOSPITAL COURSE: The patient was monitored overnight. She had complete resolution of her symptoms. She did have some mild neurasthenia of left side of the face by her complaints when I saw her yesterday evening but has completely resolved at this time and she has also had no vertigo either. She is felt to be ready for discharge home at this time and will make outpatient plans for her to see a neurologist as an outpatient. She will follow up in my office in one week. We did add aspirin 81 mg and Plavix 75 mg to her above medications. She was instructed to immediately return to the hospital if she has any symptoms of focal neurological deficits.
== END 2018-08-30 10:25 | disposition home or self-care (01) ==
LOC: ED 08:32 → MED SURG 13:48
PROVIDERS: ADMIT Family Medicine; ATTEND Family Medicine
DX: G45.9 Transient cerebral ischemic attack, unspecified (principal); Z86.73 Personal history of transient ischemic attack (TIA), and cerebral infarction without residual deficits; I10 Essential (primary) hypertension; E11.9 Type 2 diabetes mellitus without complications; I25.10 Atherosclerotic heart disease of native coronary artery without angina pectoris; K21.9 Gastro-esophageal reflux disease without esophagitis; Z79.01 Long term (current) use of anticoagulants; Z79.899 Other long term (current) drug therapy; Z79.84 Long term (current) use of oral hypoglycemic drugs
CPT/HCPCS: 36000; 36415; 70551; 72141; 80048; 80053; 81001; 82962; 83036; 83605; 84484; 85025; 85610; 87077; 87086; 87186; 93005; 93041; 93268; 95812; 96360; 96365; 99285; J0696; A9270-GY; G0378

== ENCOUNTER 2018-11-19 17:31 | Emergency (ER) | payer MEDICARE, OTHER ==
[2018-11-19] MEDS ORDERED: Zofran 4 MG/2 ML VIAL IV ONE (18:08)
[2018-11-19] MEDS ORDERED: APRESOLINE 20 MG/ML INJ IV ONE (18:09)
[2018-11-19] MEDS ORDERED: Sodium Chloride 0.9% 1000 ML 1,000 ML IV SCH (18:15)
--- NOTE | 2018-11-19 18:17 | ERPHSYRPT ---
<HARVEYROCIO SALDANALEY - Last Filed: 11/19/18 19:04> - History of Present Illness Time Seen by Provider: 11/19/18 18:10 Historian: patient Exam Limitations: no limitations Patient Subjective Stated Complaint: high blood pressure, headache, and chest pressure for several hours today Triage Nursing Assessment: ambulated to room per self. skin w/d, color normal, resp easy. pupils equal. a/o times three. faulkner without difficulty. Physician History: This is a 73-year-old white female with history of peripheral neuropathy, cataracts, hypercholesterolemia, high blood pressure, diabetes type 2, gallbladder disease, GI bleed, anxiety Patient states that she was driving [facility] heading down towards [place] when she began to have back pain and around 11:00 she states she took 2 tramadol tablets. Then around 1:30 she began to feel like she had a headache and chest pressure she has noticed her blood pressure to be elevated at home. Patient arrives with a blood pressure of 216/92 she is not short of breath she does state that she is nauseous. Patient is on Plavix and aspirin last aspirin was 81 mg this morning. Past medical history includes cataracts, diabetes type 2, hyperlipidemia, high blood pressure, gallbladder disease, menstrual problems, anxiety, depression, interstitial cystitis, hysterectomy, right knee replacement, C3for C5-6 fusion Past surgical history includes neurologic surgery, cholecystectomy, hysterectomy , orthopedic surgery, right knee surgery, cervical fusion Timing/Duration: today (back pain at 11:30, chest pressure, headache, high blood pressure beginning at 1:30 PM) Activities at Onset: other (driving) Quality: pressure Location: substernal Chest Pain Radiation: no radiation Severity of Pain-Max: moderate Severity of Pain-Current: moderate Modifying Factors: Improves With: other (patient took 2 tramadol around 11:00) Associated Symptoms: nausea, headache, back pain, No vomiting, No palpitations, No heartburn, No abdominal pain, No shortness of breath, No cough, No hurts to breathe, No diaphoresis, No chills, No fever, No fatigue, No weakness, No swelling/lump in chest, No syncope, No rash, No dizziness, No edema Nitro Today/Relief: no nitro taken today Aspirin Treatment Today: 81 mg x 1, provided at home Allergies/Adverse Reactions: Sulfa (Sulfonamide Antibiotics) [Sulfa(Sulfonamide Antibiotics)] Allergy (Severe , Verified 11/19/18 17:53) Hives Home Medications: Gabapentin 600 mg PO TID 03/14/18 [History] Lisinopril 40 mg PO DAILY 03/14/18 [History] Magnesium Oxide 400 mg [Mag-Ox 400] 400 mg PO DAILY 03/14/18 [History] Metformin HCl 500 mg PO BID 03/14/18 [History] Omeprazole 40 mg PO DAILY 03/14/18 [History] Tramadol HCl 50 mg [Ultram 50 mg] 100 mg PO 1400 03/14/18 [History] Trimethoprim 100 mg PO DAILY 03/14/18 [History] Nortriptyline HCl 10 mg PO HS 08/29/18 [History] Potassium Chloride 10 Meq Tab* [Klor Con 10 MEQ] 10 meq PO TID 08/29/18 [ History] Venlafaxine HCl 37.5 mg [Effexor 37.5 mg] 37.5 mg PO DAILY 08/29/18 [ History] Metoprolol Succinate 50 mg [Toprol Xl 50 MG] 50 mg PO DAILY 11/19/18 [ History] Hx Tetanus, Diphtheria Vaccination/Date Given: No Hx Influenza Vaccination/Date Given: Yes Hx Pneumococcal Vaccination/Date Given: Yes Immunizations Up to Date: No - Review of Systems Constitutional: No Fever, No Chills Eyes: No Symptoms Ears, Nose, & Throat: No Symptoms Respiratory: No Cough, No Dyspnea Cardiac: Chest Pain, No Edema, No Palpitations, No Syncope, No Orthopnea Abdominal/Gastrointestinal: Nausea, No Abdominal Pain, No Vomiting, No Diarrhea , No Constipation, No Hematemesis, No Hematochezia, No Melena, No Dysphagia, No Appetite Changes Genitourinary Symptoms: No Dysuria Musculoskeletal: No Back Pain, No Neck Pain Skin: No Rash Neurological: Headache Psychological: No Symptoms Endocrine: No Symptoms All Other Systems: Reviewed and Negative - Past Medical History Pertinent Past Medical History: Yes Neurological History: Stroke ENT History: Cataracts Cardiac History: High Cholesterol, Hypertension Respiratory History: No Pertinent History Endocrine Medical History: Diabetes Type II Musculoskeletal History: Other GI Medical History: Gallbladder Disease History: Other Psycho-Social History: Anxiety, Depression Female Reproductive Disorders: Menstrual Problems Other Medical History: Interstitial Cystitis, Hysterectomy 1976, R knee meniscal tear. C 3-4, 5-6 Fusion 2009 - Past Surgical History Past Surgical History: Yes Neuro Surgical History: Neurological Surgery Cardiac: No Pertinent History Respiratory: No Pertinent History Gastrointestinal: Cholecystectomy Genitourinary: No Pertinent History Musculoskeletal: Orthopedic Surgery Female Surgical History: Hysterectomy Other Surgical History: rt knee surgery,Metal plate in neck - Social History Smoking Status: Never smoker Exposure to second hand smoke: No Drug Use: none Patient Lives Alone: Yes - Female History Hx Now: No - Nursing Vital Signs Nursing Vital Signs: Initial Vital Signs Temperature 97.8 F 11/19/18 17:40 Pulse Rate 58 L 11/19/18 17:40 Respiratory Rate 16 11/19/18 17:40 Blood Pressure 216/92 11/19/18 17:40 O2 Sat by Pulse Oximetry 98 11/19/18 17:40 Pain Scale Pain Intensity 2 - Physical Exam General Appearance: mild distress, alert Eye Exam: PERRL/EOMI, eyes nml inspection Ears, Nose, Throat Exam: normal ENT inspection, moist mucous membranes Neck Exam: normal inspection, non-tender, supple, full range of motion Respiratory Exam: normal breath sounds, lungs clear, No respiratory distress Cardiovascular Exam: regular rate/rhythm, normal heart sounds, capillary refill <2 sec Gastrointestinal/Abdomen Exam: soft, No tenderness, No mass Back Exam: normal inspection, No CVA tenderness, No vertebral tenderness Extremity Exam: normal inspection, normal range of motion Neurologic Exam: alert, oriented x 3, cooperative, beverage host II-XII nml as tested, normal mood/affect, sensation nml, No motor deficits Skin Exam: normal color, warm, dry SpO2 Interpretation: normal (98%) SpO2: 98 - Course Nursing assessment & vital signs reviewed: Yes EKG Interpreted by Me: RATE (58 bpm), Sinus Jordin, NORMAL AXIS, Other (EKG: Sinus bradycardia, 58 bpm, normal axis, no acute ST or T wave changes essentially normal EKG) - Radiology Exams Chest X-ray Interpretation: Interpreted by me (no acute disease process noted) Ordered Tests: Active Orders 24 hr Category Date Time Status Pen Tester STAT Care 11/19/18 18:08 Active EKG-ER Only STAT Care 11/19/18 18:08 Active IV Insertion STAT Care 11/19/18 18:08 Active CHEST 1 VIEW (PORTABLE) Stat Exams 11/19/18 18:08 Taken AMYLASE Stat Lab 11/19/18 18:19 Completed CBC W DIFF Stat Lab 11/19/18 18:19 Completed CMP Stat Lab 11/19/18 18:19 Completed LIPASE Stat Lab 11/19/18 18:19 Completed TROPONIN Q3H Lab 11/19/18 18:19 Completed TROPONIN Q3H Lab 11/19/18 21:15 Ordered TROPONIN Q3H Lab 11/20/18 00:15 Ordered TROPONIN Q3H Lab 11/20/18 03:15 Ordered TROPONIN Q3H Lab 11/20/18 06:15 Ordered UA W/RFX UR CULTURE Stat Lab 11/19/18 18:20 Completed Medication Summary Generic Name Dose Route Start Last Admin Trade Name Freq PRN Reason Stop Dose Admin Sodium Chloride 1,000 mls @ 50 mls/hr 11/19/18 18:15 11/19/18 18:26 Sodium Chloride 0.9% 1000 Ml IV 12/19/18 18:14 50 mls/hr .Q20H ADAMA Administration Discontinued Medications Generic Name Dose Route Start Last Admin Trade Name Freq PRN Reason Stop Dose Admin Hydralazine HCl 10 mg 11/19/18 18:09 11/19/18 18:27 Apresoline 20 Mg/Ml Inj IV 11/19/18 18:10 10 mg STAT ONE Administration Hydralazine HCl Confirm 11/19/18 18:23 Apresoline 20 Mg/Ml Inj Administered 11/19/18 18:24 Dose 20 mg .ROUTE .STK-MED ONE Morphine Sulfate 2 mg 11/19/18 18:55 11/19/18 19:03 Morphine Sulfate 2 Mg Inj IV 11/19/18 18:56 2 mg STAT ONE Administration Morphine Sulfate Confirm 11/19/18 19:02 Morphine Sulfate 2 Mg Inj Administered 11/19/18 19:03 Dose 2 mg .ROUTE .STK-MED ONE Ondansetron HCl 4 mg 11/19/18 18:08 11/19/18 18:27 Zofran 4 Mg/2 Ml Vial IV 11/19/18 18:09 4 mg STAT ONE Administration Ondansetron HCl Confirm 11/19/18 18:23 Zofran 4 Mg/2 Ml Vial Administered 11/19/18 18:24 Dose 4 mg .ROUTE .STK-MED ONE Lab/Rad Data: Laboratory Result Diagrams 11/19/18 18:19 11/19/18 18:19 Laboratory Results 11/19/18 11/19/18 11/19/18 Range/Units 18:20 18:19 18:19 WBC (4.0-10.5) K/mm3 RBC (4.1-5.4) M/mm3 Hgb (12.0-16.0) gm/dl Hct (35-47) % MCV (78-100) fl MCH (26-32) pg MCHC (32-36) g/dl RDW (11.5-14.0) % Plt Count (150-450) K/mm3 MPV (6-9.5) fl Gran % (36.0-66.0) % Eos # (Auto) (0-0.5) Absolute Lymphs (auto) (1.0-4.6) Absolute Monos (auto) (0.0-1.3) Lymphocytes % (24.0-44.0) % Monocytes % (0.0-12.0) % Eosinophils % (0.00-5.0) % Basophils % (0.0-0.4) % Absolute Granulocytes (1.4-6.9) Basophils # (0-0.4) Sodium (137-145) mmol/L Potassium (3.5-5.1) mmol/L Chloride (98-107) mmol/L Carbon Dioxide (22-30) mmol/L Anion Gap (5-15) MEQ/L BUN (7-17) mg/dL Creatinine (0.52-1.04) mg/dL Estimated GFR ML/MIN Glucose (74-106) mg/dL Calcium (8.4-10.2) mg/dL Total Bilirubin (0.2-1.3) mg/dL AST (14-36) U/L ALT (0-35) U/L Alkaline Phosphatase (38-126) U/L Troponin I < 0.012 (0.000-0.034) ng/mL Serum Total Protein (6.3-8.2) g/dL Albumin (3.5-5.0) g/dL Amylase 87 (30-110) U/L Lipase 82 (23-300) U/L Urine Color COLORLESS (YELLOW) Urine Appearance CLEAR (CLEAR) Urine pH 6.0 (5-6) Ur Specific [place] 1.005 (1.005-1.025) Urine Protein NEGATIVE (Negative) Urine Ketones NEGATIVE (NEGATIVE) Urine Blood NEGATIVE (0-5) Roshan/ul Urine Nitrite NEGATIVE (NEGATIVE) Urine Bilirubin NEGATIVE (NEGATIVE) Urine Urobilinogen NEGATIVE (0-1) mg/dL Ur Leukocyte Esterase NEGATIVE (NEGATIVE) Urine WBC (Auto) NONE (0-5) /HPF Urine RBC (Auto) NONE (0-2) /HPF U Epithel Cells (Auto) NONE (FEW) /HPF Urine Bacteria (Auto) NONE (NEGATIVE) /HPF Urine Culture Reflexed NO (NO) Urine Glucose NEGATIVE (NEGATIVE) mg/dL 11/19/18 11/19/18 Range/Units 18:19 18:19 WBC 5.4 (4.0-10.5) K/mm3 RBC 4.63 (4.1-5.4) M/mm3 Hgb 14.0 (12.0-16.0) gm/dl Hct 41.4 (35-47) % MCV 89.4 (78-100) fl MCH 30.2 (26-32) pg MCHC 33.8 (32-36) g/dl RDW 13.6 (11.5-14.0) % Plt Count 173 (150-450) K/mm3 MPV 10.9 H (6-9.5) fl Gran % 36.3 (36.0-66.0) % Eos # (Auto) 0.17 (0-0.5) Absolute Lymphs (auto) 2.75 (1.0-4.6) Absolute Monos (auto) 0.50 (0.0-1.3) Lymphocytes % 50.9 H (24.0-44.0) % Monocytes % 9.3 (0.0-12.0) % Eosinophils % 3.1 (0.00-5.0) % Basophils % 0.4 (0.0-0.4) % Absolute Granulocytes 1.96 (1.4-6.9) Basophils # 0.02 (0-0.4) Sodium 140 (137-145) mmol/L Potassium 5.2 H (3.5-5.1) mmol/L Chloride 106 (98-107) mmol/L Carbon Dioxide 23 (22-30) mmol/L Anion Gap 15.4 H (5-15) MEQ/L BUN 19 H (7-17) mg/dL Creatinine 0.79 (0.52-1.04) mg/dL Estimated GFR > 60.0 ML/MIN Glucose 75 (74-106) mg/dL Calcium 9.3 (8.4-10.2) mg/dL Total Bilirubin 1.10 (0.2-1.3) mg/dL AST 51 H (14-36) U/L ALT 27 (0-35) U/L Alkaline Phosphatase 86 (38-126) U/L Troponin I (0.000-0.034) ng/mL Serum Total Protein 8.4 H (6.3-8.2) g/dL Albumin 4.5 (3.5-5.0) g/dL Amylase (30-110) U/L Lipase (23-300) U/L Urine Color (YELLOW) Urine Appearance (CLEAR) Urine pH (5-6) Ur Specific [place] (1.005-1.025) Urine Protein (Negative) Urine Ketones (NEGATIVE) Urine Blood (0-5) Roshan/ul Urine Nitrite (NEGATIVE) Urine Bilirubin (NEGATIVE) Urine Urobilinogen (0-1) mg/dL Ur Leukocyte Esterase (NEGATIVE) Urine WBC (Auto) (0-5) /HPF Urine RBC (Auto) (0-2) /HPF U Epithel Cells (Auto) (FEW) /HPF Urine Bacteria (Auto) (NEGATIVE) /HPF Urine Culture Reflexed (NO) Urine Glucose (NEGATIVE) mg/dL - Progress Progress: improved Air Movement: fair Progress Note: 11/19/18 19:01 73-year-old white female arrives with complaint of chest pressure, headache, elevated blood pressure. Patient states this began at around 1:30 PM she states she had a headache and took tramadol 2 tablets at 11:30 then at 1:30 PM she noted chest pressure and nausea she noted her blood pressure be elevated. Patient with a blood pressure 216/92. She has a good response to Apresoline 10 mg IV. EKG on this patient sinus bradycardia, 58 bpm normal axis no acute ST or T wave changes are noted Patient's chest x-ray no acute disease processes noted patient's troponin is within normal limits chemistry sodium 140 potassium 5.2 chloride 106 bicarbonate 23 BUN 19 creatinine 0.79 glucose 75 CBC is within normal limits . I have ordered 2 mg of morphine IV for the patient. We're awaiting urinalysis for this patient consider repeat troponin. I've discussed case with Dr. Zhang he will assume care of this patient secondary to shift change. - Departure Clinical Impression: Hypertensive urgency Condition: Stable Referrals: ODILIA ESCOBAR [Primary Care Provider] - Additional Instructions: take your medications as prescribed. keep a daily log of your blood pressure as discussed. call dr. cardona office wednesday11/21/18 to arrange for follow up appointment <REUBEN ZHANG. - Last Filed: 11/19/18 20:20> - Progress Progress Note: 11/19/18 19:34 pt states she is feeling much better 11/19/18 20:19 no cp, no back pain, headache now 09/04. Counseled pt/family regarding: lab results, diagnosis, need for follow-up, rad results - Departure Departure Disposition: Home Critical Care Time: Yes Critical Care Time(excluding separately billable procedures): 30-74 minutes
[2018-11-19 18:22] LABS: BASOPHIL % 0.4 % (0.0-0.4); Basophil (Absolute #) 0.02 (0-0.4); Eosinophil % 3.1 % (0.00-5.0); Eosinophil (Absolute #) 0.17 (0-0.5); Granulocyte Absolute (ANC) 1.96 (1.4-6.9); Granulocytes % 36.3 % (36.0-66.0); Hematocrit 41.4 % (35-47); Lymphocyte (Absolute #) 2.75 (1.0-4.6); Lymphocytes % 50.9 % (24.0-44.0); Mean Cell Volume 89.4 fl (78-100); Mean Corpuscular Hemoglobin 30.2 pg (26-32); Mean Corpuscular Hgb Concent. 33.8 g/dl (32-36); Mean Platelet Volume 10.9 fl (6-9.5); Monocytes % 9.3 % (0.0-12.0); Platelet Count 173 K/mm3 (150-450); Red Blood Count 4.63 M/mm3 (4.1-5.4); Red Cell Distribution Width 13.6 % (11.5-14.0); White Blood Count 5.4 K/mm3 (4.0-10.5)
[2018-11-19] MEDS ORDERED: APRESOLINE 20 MG/ML INJ ONE (18:23)
[2018-11-19] MEDS ORDERED: Sodium Chloride 0.9% 1000 ML 1,000 ML ONE (18:23)
[2018-11-19] MEDS ORDERED: Zofran 4 MG/2 ML VIAL ONE (18:23)
[2018-11-19 18:32] LABS: ALBUMIN 4.5 g/dL (3.5-5.0); ALKALINE PHOSPHATASE 86 U/L (38-126); ANION GAP 15.4 MEQ/L (5-15); BLOOD UREA NITROGEN 19 mg/dL (7-17); CHLORIDE 106 mmol/L (98-107); Calcium 9.3 mg/dL (8.4-10.2); Carbon Dioxide 23 mmol/L (22-30); Creatinine 1 0.79 mg/dL (0.52-1.04); Glucose 75 mg/dL (74-106); Potassium 5.2 mmol/L (3.5-5.1); SGOT/AST 51 U/L (14-36); SGPT/ALT 27 U/L (0-35); SODIUM 140 mmol/L (137-145); Total Protein 8.4 g/dL (6.3-8.2)
[2018-11-19] MEDS ORDERED: MORPHINE SULFATE 2 MG INJ IV ONE (18:55)
[2018-11-19] MEDS ORDERED: MORPHINE SULFATE 2 MG INJ ONE (19:02)
[2018-11-19 19:04] LABS: AMYLASE 87 U/L (30-110); LIPASE 82 U/L (23-300)
[2018-11-19 19:35] LABS: Appearance CLEAR (CLEAR); Bilirubin NEGATIVE (NEGATIVE); Blood NEGATIVE Ery/ul (0-5); Glucose NEGATIVE (NEGATIVE); Ketones NEGATIVE (NEGATIVE); Leukocyte Esterase NEGATIVE (NEGATIVE); Nitrite NEGATIVE (NEGATIVE); Protein,Urine Dip NEGATIVE (Negative); Specific Gravity 1.005 (1.005-1.025); Urobilinogen NEGATIVE mg/dL (0-1)
[2018-11-19 20:37] VITALS: BP 152/65; PULSE 60; O2SAT 96
--- NOTE | 2018-11-20 07:49 | XRAY ---
Indication: Chest pain. Comparison: March 14, 2018. Portable chest remains hyperinflated and clear again with incidental right upper lung calcified granulomas and lingular fibrosis/scarring. Heart and mediastinal structures within normal limits for AP portable technique. Bony thorax intact again with mild degenerative changes and lower cervical fusion hardware. Impression: Stable nonacute chest with chronic features.
== END 2018-11-19 20:48 | disposition home or self-care (01) ==
LOC: ED 17:31
DX: I16.0 Hypertensive urgency (principal); R07.89 Other chest pain; G62.9 Polyneuropathy, unspecified; E11.9 Type 2 diabetes mellitus without complications; Z79.4 Long term (current) use of insulin; E78.5 Hyperlipidemia, unspecified; F41.9 Anxiety disorder, unspecified; F32.9 Major depressive disorder, single episode, unspecified; Z79.899 Other long term (current) drug therapy
CPT/HCPCS: 36000; 36415; 71045; 80053; 81001; 82150; 83690; 84484; 85025; 93005; 93041; 96360; 96361; 96374; 96375; 99284; J0360; J2270; J2405

== ENCOUNTER 2019-04-25 06:01 | Day surgery (SDC) | payer MEDICARE, OTHER ==
[2019-04-25] MEDS ORDERED: Lactated Ringers 1,000 ML IV SCH (06:30)
[2019-04-25] MEDS ORDERED: DIPRIVAN 200 MG/20 ML IV ONE ×2 (08:01→08:13)
[2019-04-25] MEDS ORDERED: SUBLIMAZE 100 MCG/2 ML ONE (08:19)
[2019-04-25 09:53] VITALS: PULSE 58; O2SAT 96
[2019-04-25 09:55] VITALS: BP 147/63
--- NOTE | 2019-04-25 10:25 | OP ---
SURGERY DATE/TIME: 04/25/2019 0800 PREOPERATIVE DIAGNOSIS: Change in bowel habits with fecal incontinence. POSTOPERATIVE DIAGNOSIS: Small polyps in the ascending and transverse colon, sigmoid diverticulosis. PROCEDURE: Colonoscopy with cold forceps biopsy. SURGEON: Dr. Lopez. ANESTHESIA: MAC. Medications given by anesthesia department. HISTORY: The patient is a 74 year-old white female with complaints of change in bowel habits particularly with fecal incontinence. The patient was felt the need to have endoscopic evaluation. She was apprised of the risks of the procedure including the risk of perforation, phlebitis, untoward reaction to medication, bleeding and missed lesions. The patient verbalized her understanding and desired to have the procedure performed. DESCRIPTION OF PROCEDURE: The patient was given the medications by the anesthesia department. She had continuous pulse oximetry, ECG monitoring, intermittent blood pressure monitoring and tidal CO2 monitoring during the examination. She was placed in the left lateral decubitus position. A digital rectal examination was performed and revealed normal anal sphincter tone and no masses. The flexible Olympus pediatric colonoscope was used to intubate the rectum. A view of the colon was developed sequentially to the cecum. Upon insertion and withdrawal were noted small polyps in the ascending and transverse colon. These were biopsied using cold biopsy technique with forceps. Upon insertion and withdrawal was also noted to be mild sigmoid diverticulosis and no other mucosal lesions being encountered the scope was removed from the patient who tolerated the procedure well and was sent back to OP recovery in good condition. The prep was noted to be fair. The colon was noted to be quite tortuous.
== END 2019-04-25 10:01 | disposition home or self-care (01) ==
LOC: SDC 06:01
PROVIDERS: ATTEND Family Medicine
DX: K57.30 Diverticulosis of large intestine without perforation or abscess without bleeding (principal); D12.3 Benign neoplasm of transverse colon; D12.4 Benign neoplasm of descending colon; R15.9 Full incontinence of feces; E11.9 Type 2 diabetes mellitus without complications; I10 Essential (primary) hypertension
CPT/HCPCS: 82962; 88305; 99100; J2704; J3010

== ENCOUNTER 2020-01-17 07:55 | Day surgery (SDC) | payer MEDICARE, OTHER ==
[2013-03-15 09:25] VITALS: BP 137/71
[2020-01-17] MEDS ORDERED: DIPRIVAN 200 MG/20 ML IV ONE (07:56)
[2020-01-17] MEDS ORDERED: Depo-Medrol 40 MG/ML IM ONE (07:56)
[2020-01-17] MEDS ORDERED: Ketamine HCl 50 MG/ML IV ONE (07:56)
[2020-01-17] MEDS ORDERED: Xylocaine-Mpf 2% 5 Ml Vial IJ ONE (07:56)
--- NOTE | 2020-01-17 11:00 | XRAY ---
Indication: Bilateral L3-S1 MBB. Intraoperative fluoroscopy was provided for 11 seconds. Single digital spot image submitted for interpretation demonstrates posterior needle tips projecting over the expected course of the left and right L3-S1 nerve roots. Correlate with intraoperative findings/report.
--- NOTE | 2020-01-17 12:02 | XRAY ---
11 seconds fluoroscopy time in surgery for bilateral L3-S1 MBB.
[2020-01-17] MEDS ORDERED: Lactated Ringers 1,000 ML IV ONE (14:52)
== END 2020-01-17 09:45 | disposition home or self-care (01) ==
LOC: SDC-PAIN 07:55
PROVIDERS: ATTEND Psychiatry & Neurology Pain Medicine
DX: M47.816 Spondylosis without myelopathy or radiculopathy, lumbar region (principal); E11.9 Type 2 diabetes mellitus without complications; I10 Essential (primary) hypertension; E78.5 Hyperlipidemia, unspecified; Z86.73 Personal history of transient ischemic attack (TIA), and cerebral infarction without residual deficits; Z79.899 Other long term (current) drug therapy
CPT/HCPCS: 64493; 64494; 64495; 72020; 77002; 82962; J1030; J2704

== ENCOUNTER 2020-10-15 05:59 | Day surgery (SDC) | payer MEDICARE, OTHER ==
[2020-10-15] MEDS ORDERED: Lactated Ringers 1,000 ML IV SCH (06:30)
[2020-10-15] MEDS ORDERED: DIPRIVAN 200 MG/20 ML IV ONE ×3 (08:00→08:20)
--- NOTE | 2020-10-15 09:09 | OP ---
SURGERY DATE/TIME: 10/15/2020 0757 PREOPERATIVE DIAGNOSIS: History of colon polyps. POSTOPERATIVE DIAGNOSIS: Multiple small polyps. PROCEDURE: Colonoscopy with cold forceps biopsy. SURGEON: Dr. Lopez. ANESTHESIA: MAC. Medications given by anesthesia department. HISTORY: The patient is a 75 year-old white female with large polyp removed two to three years ago and presents now for surveillance examination. The patient was appraised of the risks of the procedure including the risk of perforation, phlebitis, untoward reaction to medication, bleeding and missed lesions. The patient verbalized her understanding and desired to have the procedure performed. DESCRIPTION OF PROCEDURE: The patient was given the medications by the anesthesia department. She had continuous pulse oximetry, ECG monitoring, intermittent blood pressure monitoring and tidal CO2 monitoring during the examination. She was placed in the left lateral decubitus position. A digital rectal examination was performed and revealed normal anal sphincter tone and no masses. The flexible Olympus pediatric colonoscope was used to intubate the rectum. A view of the colon was developed sequentially to the cecum. Upon insertion and withdrawal including a retroflex view was noted polyps in the ascending, transverse and sigmoid colon. These were all biopsied and destroyed using cold biopsy technique. The scope was removed from the patient who tolerated the procedure well and was sent back to OP recovery in good condition. The prep was noted to be fair to good.
[2020-10-15 09:37] VITALS: O2SAT 96
[2020-10-15 09:56] VITALS: BP 161/96; PULSE 75
== END 2020-10-15 09:38 | disposition home or self-care (01) ==
LOC: SDC 05:59
PROVIDERS: ATTEND Family Medicine
DX: K59.00 Constipation, unspecified (principal); Z86.010 Personal history of colon polyps; I10 Essential (primary) hypertension; E11.9 Type 2 diabetes mellitus without complications; Z79.899 Other long term (current) drug therapy; D12.2 Benign neoplasm of ascending colon; D12.3 Benign neoplasm of transverse colon
CPT/HCPCS: 82947; 88305; 99100; J2704

== ENCOUNTER 2022-09-18 12:39 | Emergency (ER) | payer MEDICARE, OTHER ==
--- NOTE | 2022-09-18 12:51 | ERPHSYRPT ---
- History of Present Illness Time Seen by Provider: 09/18/22 12:51 Source: patient Exam Limitations: no limitations Physician History: 77yo F here for elevated BP since this AM. She reports having a generalized, sharp SMART that she rates 5/10 in severity. Her daughter made her check her BP and it was elevated >170s/90s. She has a hx of TIA, but denies facial drooping, fo leanne weakness or changes in speech. She does report some ANGELES that is unchanged from her baseline. She denies F/C/N/V, CP, palpitations, abd pain. Timing/Duration: today Activities at Onset: none Quality: sharpness Location: other (SMART) Severity of Pain-Max: moderate Severity of Pain-Current: mild Modifying Factors: Improves With: nothing Aspirin Treatment Today: no aspirin today Associated Symptoms: shortness of breath, headaches, No nausea, No vomiting, No abdominal pain, No diaphoresis, No cough, No chills, No chest pain, No fever Allergies/Adverse Reactions: Sulfa (Sulfonamide Antibiotics) [Sulfa(Sulfonamide Antibiotics)] Allergy (Severe , Verified 09/18/22 12:59) Hives Home Medications: Gabapentin 400 mg PO TID 03/14/18 [History] Magnesium Oxide 400 mg [Mag-Ox 400] 400 mg PO DAILY 03/14/18 [History] Metformin HCl 500 mg PO BID 03/14/18 [History] Omeprazole 40 mg PO DAILY 03/14/18 [History] Tramadol HCl 50 mg [Ultram 50 mg] 100 mg PO DAILY 03/14/18 [History] lisinopriL [Lisinopril] 40 mg PO DAILY 03/14/18 [History] Nortriptyline HCl 10 mg PO HS 08/29/18 [History] Potassium Chloride Tab* [Klor Con] 10 meq PO BID 08/29/18 [History] Venlafaxine HCl 37.5 mg [Effexor 37.5 mg] 37.5 mg PO DAILY 08/29/18 [History] Amlodipine Besylate 5 mg [Norvasc 5 mg] 5 mg PO DAILY 04/18/19 [History] HydrALAzine HCL 25 MG TAB [Apresoline 25 MG TABLET] 25 mg PO DAILY 04/18/19 [History] L.acidoph,Paracasei, B.lactis [Probiotic] 1 cap PO DAILY 04/18/19 [History] [place]-3 Fatty Acids/Fish Oil [Fish Oil 1,000 mg Capsule] 1 each PO BID 04/18/19 [History] cephALEXin [Keflex] 500 mg PO DAILY 04/18/19 [History] Fenofibrate,Micronized 145 mg* [Tricor 145 MG] 145 mg PO DAILY 09/18/22 [Hist ory] Furosemide [Lasix] 20 mg PO DAILY 09/18/22 [History] Simvastatin 10 mg [Zocor 10MG] 10 mg PO DAILY 09/18/22 [History] Hx Tetanus, Diphtheria Vaccination/Date Given: No Hx Influenza Vaccination/Date Given: Yes Hx Pneumococcal Vaccination/Date Given: Yes - Review of Systems Constitutional: No Symptoms Eyes: No Symptoms Ears, Nose, & Throat: No Symptoms Respiratory: Dyspnea on Exertion (ANGELES) Cardiac: No Symptoms Abdominal/Gastrointestinal: No Symptoms Genitourinary Symptoms: No Symptoms Musculoskeletal: No Symptoms Skin: No Symptoms Neurological: Headache, No Focal Weakness, No Paralysis, No Parasthesia, No Speech Changes Psychological: No Symptoms Endocrine: No Symptoms Hematologic/Lymphatic: No Symptoms Immunological/Allergic: No Symptoms All Other Systems: Reviewed and Negative - Past Medical History Pertinent Past Medical History: Yes Neurological History: Stroke ENT History: Cataracts Cardiac History: High Cholesterol, Hypertension Respiratory History: No Pertinent History Endocrine Medical History: Diabetes Type II Musculoskeletal History: Other GI Medical History: GERD, Gallbladder Disease, Ulcer History: Other Psycho-Social History: Anxiety, Depression Female Reproductive Disorders: Menstrual Problems Other Medical History: Interstitial Cystitis, Hysterectomy 1976, R knee meniscal tear. C 3-4, 5-6 Fusion 2008 - Past Surgical History Past Surgical History: Yes Neuro Surgical History: No Pertinent History Cardiac: No Pertinent History Respiratory: No Pertinent History Gastrointestinal: Cholecystectomy Genitourinary: No Pertinent History Musculoskeletal: Orthopedic Surgery Female Surgical History: Hysterectomy Other Surgical History: rt knee surgery--meniscus repair,Metal plate in neck after two neck surgeries - Social History Smoking Status: Never smoker Exposure to second hand smoke: No Drug Use: none Patient Lives Alone: Yes - Nursing Vital Signs Nursing Vital Signs: Initial Vital Signs Temperature 96.3 F 09/18/22 12:45 Pulse Rate 85 09/18/22 12:45 Blood Pressure 186/75 09/18/22 12:45 O2 Sat by Pulse Oximetry 98 09/18/22 12:45 Pain Scale Pain Intensity 0 - Physical Exam General Appearance: no apparent distress Eye Exam: PERRL/EOMI, eyes nml inspection Ears, Nose, Throat Exam: normal ENT inspection, pharynx normal, moist mucous membranes Neck Exam: normal inspection, non-tender, supple, full range of motion Respiratory Exam: lungs clear, airway intact, diminished breath sounds, No chest tenderness, No respiratory distress, No crackles/rales, No rhonchi, No wheezing Cardiovascular Exam: regular rate/rhythm, normal heart sounds, capillary refill <2 sec Gastrointestinal/Abdomen Exam: soft, normal bowel sounds, No tenderness, No guarding, No rebound Back Exam: normal inspection Extremity Exam: normal inspection Neurologic Exam: alert, oriented x 3, cooperative, 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 tested, No motor weakness, No facial droop, No slurred speech, No aphasia, No dysarthria Skin Exam: normal color, warm, dry SpO2 Interpretation: normal O2 Delivery: Room Air - Course Nursing assessment & vital signs reviewed: Yes EKG Interpreted by Me: RATE (72), Sinus Rhythm, NORMAL AXIS, NORMAL INTERVALS, NORMAL QRS, NORMAL ST-T - Radiology Exams Chest X-ray Interpretation: Reviewed by me, Other (nonacute hyperinflated lungs) Ordered Tests: Active Orders 24 hr Category Date Time Status Yard General Car Supervisor STAT Care 09/18/22 13:13 Active EKG-ER Only STAT Care 09/18/22 13:11 Active IV Insertion STAT Care 09/18/22 13:11 Active Pulse Oximetry (ED) STAT Care 09/18/22 13:11 Active CHEST 2 VIEWS (PA AND LAT) Stat Exams 09/18/22 13:12 Completed CBC W DIFF Stat Lab 09/18/22 13:11 Completed CMP Stat Lab 09/18/22 13:15 Completed MAGNESIUM Stat Lab 09/18/22 13:15 Completed Respiratory Therapy Assessment DAILY RT 09/18/22 14:33 Completed Medication Summary Discontinued Medications Generic Name Dose Route Start Last Admin Trade Name Freq PRN Reason Stop Dose Admin Acetaminophen 975 mg 09/18/22 13:11 09/18/22 13:24 Acetaminophen 325 Mg Tablet PO 09/18/22 13:12 975 mg STAT ONE Administration Acetaminophen Confirm 09/18/22 13:21 Acetaminophen 325 Mg Tablet Administered 09/18/22 13:22 Dose 975 mg .ROUTE .STK-MED ONE Albuterol/Ipratropium 3 ml 09/18/22 14:21 09/18/22 14:30 Ipratropium/Albuterol Sulfate 3 Ml Ampul.Neb IH 09/18/22 14:22 3 ml STAT ONE Administration Albuterol/Ipratropium Confirm 09/18/22 14:28 Ipratropium/Albuterol Sulfate 3 Ml Ampul.Neb Administered 09/18/22 14:29 Dose 3 ml IH .STK-MED ONE Sodium Chloride 1,000 mls @ 999 mls/hr 09/18/22 14:44 09/18/22 15:55 Sodium Chloride 0.9% 1000 Ml IV 09/18/22 15:44 Infused .Q1H1M STA Infusion Sodium Chloride Confirm 09/18/22 14:47 Sodium Chloride 0.9% 1000 Ml Administered 09/18/22 14:48 Dose 1,000 mls @ ud .ROUTE .STK-MED ONE Labetalol HCl 20 mg 09/18/22 13:11 09/18/22 13:25 Labetalol Hcl 20 Mg/4 Ml Disp.Syringe IV 09/18/22 13:12 20 mg STAT ONE Administration Labetalol HCl Confirm 09/18/22 13:21 Labetalol Hcl 20 Mg/4 Ml Disp.Syringe Administered 09/18/22 13:22 Dose 20 mg IV .STK-MED ONE Lab/Rad Data: Laboratory Result Diagrams 09/18/22 13:11 09/18/22 13:15 Laboratory Results 09/18/22 09/18/22 Range/Units 13:15 13:11 WBC 5.5 (4.0-10.5) x10^3/uL RBC 4.64 (4.1-5.4) x10^6/uL Hgb 13.7 (12.0-16.0) g/dL Hct 42.1 (35-47) % MCV 90.7 (78-100) fL MCH 29.5 (26-32) pg MCHC 32.5 (32-36) g/dL RDW 13.2 (11.5-14.0) % Plt Count 230 (150-450) x10^3/uL MPV 11.9 H (7.5-11.0) fL Gran % 54.6 (36.0-66.0) % Immature Gran % (Auto) 0.2 (0.00-0.4) % Nucleat RBC Rel Count 0.0 (0.00-0.1) % Eos # (Auto) 0.13 (0-0.5) x10^3/uL Immature Gran # (Auto) 0.01 (0.00-0.03) x10^3u/L Absolute Lymphs (auto) 1.90 (1.0-4.6) x10^3/uL Absolute Monos (auto) 0.40 (0.0-1.3) x10^3/uL Absolute Nucleated RBC 0.00 (0.00-0.01) x10^3u/L Lymphocytes % 34.8 (24.0-44.0) % Monocytes % 7.3 (0.0-12.0) % Eosinophils % 2.4 (0.00-5.0) % Basophils % 0.7 (0.0-0.4) % Absolute Granulocytes 2.98 (1.4-6.9) x10^3/uL Basophils # 0.04 (0-0.4) x10^3/uL Sodium 142 (137-145) mmol/L Potassium 4.0 (3.5-5.1) mmol/L Chloride 105 (98-107) mmol/L Carbon Dioxide 29 (22-30) mmol/L Anion Gap 12.5 (5-15) MEQ/L BUN 23 H (7-17) mg/dL Creatinine 1.07 H (0.52-1.04) mg/dL Estimated GFR 52.6 ML/MIN Glucose 118 H (74-106) mg/dL Calcium 9.4 (8.4-10.2) mg/dL Magnesium 2.0 (1.6-2.3) mg/dL Total Bilirubin 0.30 (0.2-1.3) mg/dL AST 37 H (14-36) U/L ALT 43 H (0-35) U/L Alkaline Phosphatase 64 (38-126) U/L Serum Total Protein 6.7 (6.3-8.2) g/dL Albumin 4.0 (3.5-5.0) g/dL - Progress Progress: improved Air Movement: good Progress Note: Cr elevated at 1.07, baseline 0.8. AST/ALT 37/43. 1L NS bolus given. SMART improved w/ Tylenol. No neurologic deficits on repeat exam. BP improved w/ IV labetalol to 145/74. Patient would like to go home w/ close PCP f/u. 09/18/22 15:49 Blood Culture(s) Obtained: No Antibiotics given: No Counseled pt/family regarding: lab results, diagnosis, need for follow-up Medical Desision Making - Risk of complications The pt has a mod risk of morbidity or mortality based on: Need for prescription drug management - Departure Departure Disposition: Home Clinical Impression: Hypertensive urgency, Elevated transaminase measurement Condition: Good Critical Care Time: No Referrals: ODILIA ESCOBAR [Primary Care Provider] - Follow up/PCP as directed Instructions: Malignant Hypertension (DC) Additional Instructions: Discussed d/c instructions at length. Advised patient to return to ER if neurologic sxs develop or BP >170/>100 on 2 readings 30 minutes apart. I stressed the importance of close f/u w/ PCP early next week to monitor BP and adjust medications. For the patient's SMART I advised using Tylenol 500mg every morning and evening scheduled w/ a max dose of 2g per day due to her elevated transaminases.
[2022-09-18] MEDS ORDERED: TYLENOL 325 MG PO ONE (13:11)
[2022-09-18] MEDS ORDERED: TRANDATE 20 MG/4 ML SYRINGE IV ONE ×2 (13:11→13:21)
[2022-09-18] MEDS ORDERED: TYLENOL 325 MG ONE (13:21)
--- NOTE | 2022-09-18 13:35 | XRAY ---
Indication: Short of breath. Comparison: November 19, 2018 PA/lateral chest remains hyperinflated and clear again with a few tiny calcified granulomas. Heart not enlarged. Bony thorax intact again with osteopenia, mild degenerative changes, and lower cervical fusion hardware. Impression: Continued nonacute hyperinflated chest with chronic features.
[2022-09-18 13:57] LABS: Absolute Neutrophil Ct (ANC) 2.98 x10^3/uL (1.4-6.9); BASOPHIL % 0.7 % (0.0-0.4); Basophil (Absolute #) 0.04 x10^3/uL (0-0.4); Eosinophil % 2.4 % (0.00-5.0); Eosinophil (Absolute #) 0.13 x10^3/uL (0-0.5); Hematocrit 42.1 % (35-47); Hemoglobin 13.7 g/dL (12.0-16.0); IMMATURE GRAN # 0.01 x10^3u/L (0.00-0.03); IMMATURE GRAN % 0.2 % (0.00-0.4); Lymphocytes % 34.8 % (24.0-44.0); Mean Cell Volume 90.7 fL (78-100); Mean Corpuscular Hemoglobin 29.5 pg (26-32); Mean Corpuscular Hgb Concent. 32.5 g/dL (32-36); Mean Platelet Volume 11.9 fL (7.5-11.0); Monocytes % 7.3 % (0.0-12.0); Neutrophil % 54.6 % (36.0-66.0); Platelet Count 230 x10^3/uL (150-450); Red Blood Count 4.64 x10^6/uL (4.1-5.4); Red Cell Distribution Width 13.2 % (11.5-14.0); White Blood Count 5.5 x10^3/uL (4.0-10.5)
[2022-09-18] MEDS ORDERED: DUONEB 0.5-3 MG/3 ml Neb IH ONE ×2 (14:21→14:28)
[2022-09-18 14:39] LABS: ANION GAP 12.5 MEQ/L (5-15); BILIRUBIN,TOTAL 0.3 mg/dL (0.2-1.3); Calcium 9.4 mg/dL (8.4-10.2); Creatinine 1 1.07 mg/dL (0.52-1.04); EST GLOMERULAR FILTRATION RATE 52.6 ML/MIN; Total Protein 6.7 g/dL (6.3-8.2)
[2022-09-18] MEDS ORDERED: Sodium Chloride 0.9% 1000 ML 1,000 ML IV STA (14:44)
[2022-09-18] MEDS ORDERED: Sodium Chloride 0.9% 1000 ML 1,000 ML ONE (14:47)
[2022-09-18 16:11] VITALS: BP 164/83; PULSE 71; O2SAT 97
== END 2022-09-18 16:26 | disposition home or self-care (01) ==
LOC: ED 12:39
DX: I16.0 Hypertensive urgency (principal); I10 Essential (primary) hypertension; R74.01 Elevation of levels of liver transaminase levels; R51.9 Headache, unspecified; E78.5 Hyperlipidemia, unspecified; E11.9 Type 2 diabetes mellitus without complications; Z79.84 Long term (current) use of oral hypoglycemic drugs; Z79.891 Long term (current) use of opiate analgesic; Z79.899 Other long term (current) drug therapy
CPT/HCPCS: 36000; 36415; 71046; 80053; 83735; 85025; 93005; 93041; 94640; 94760; 96360; 96374; 99284; A9270-GY

== ENCOUNTER 2022-09-18 19:28 | Emergency (ER) | payer MEDICARE, OTHER ==
[2022-09-18] MEDS ORDERED: BABY ASPIRIN 81 MG CHEW PO ONE ×2 (19:44→19:48)
--- NOTE | 2022-09-18 19:59 | ERPHSYRPT ---
- History of Present Illness Time Seen by Provider: 09/18/22 19:30 Source: patient Exam Limitations: no limitations Patient Subjective Stated Complaint: high blood pressure, lightheaded Triage Nursing Assessment: pt ambulatory to bed by self along with daughter, pt alert and oriented x3, pt seen earlier in ER for same complaint which is HTN, pt took bp at home and it was 209/92 around 1900, pt takes lisinopril, amlodipine, and hydralazine at home, pt denies any pain at this time Physician History: Patient is here with elevated blood pressure. Patient asymptomatic. States that maybe she felt slightly lightheaded earlier. Patient seen in the emergency department earlier today for similar symptoms. High blood pressure. Again asymptomatic. Blood pressure came down that point time. Patient went home and checked her blood pressure. Then became elevated again. Therefore came into the emergency department tonight. No chest pain no shortness of breath no nausea no vomiting. Apparently patient did have an episode of headache earlier today. They have not obtained a head CT yet. Otherwise normal neuro exam without neurological features. Timing/Duration: today Severity: mild Modifying Factors: Improves With: medication, other Associated Symptoms: denies symptoms Allergies/Adverse Reactions: Sulfa (Sulfonamide Antibiotics) [Sulfa(Sulfonamide Antibiotics)] Allergy (Severe, Verified 09/18/22 19:32) Hives Home Medications: Gabapentin 400 mg PO TID 03/14/18 [History] Magnesium Oxide 400 mg [Mag-Ox 400] 400 mg PO DAILY 03/14/18 [History] Metformin HCl 500 mg PO BID 03/14/18 [History] Omeprazole 40 mg PO DAILY 03/14/18 [History] Tramadol HCl 50 mg [Ultram 50 mg] 100 mg PO DAILY 03/14/18 [History] lisinopriL [Lisinopril] 40 mg PO DAILY 03/14/18 [History] Nortriptyline HCl 10 mg PO HS 08/29/18 [History] Potassium Chloride Tab* [Klor Con] 10 meq PO BID 08/29/18 [History] Venlafaxine HCl 37.5 mg [Effexor 37.5 mg] 37.5 mg PO DAILY 08/29/18 [History] Amlodipine Besylate 5 mg [Norvasc 5 mg] 5 mg PO DAILY 04/18/19 [History] HydrALAzine HCL 25 MG TAB [Apresoline 25 MG TABLET] 25 mg PO DAILY 04/18/19 [History] L.acidoph,Paracasei, B.lactis [Probiotic] 1 cap PO DAILY 04/18/19 [History] [place]-3 Fatty Acids/Fish Oil [Fish Oil 1,000 mg Capsule] 1 each PO BID 04/18/19 [History] cephALEXin [Keflex] 500 mg PO DAILY 04/18/19 [History] Fenofibrate,Micronized 145 mg* [Tricor 145 MG] 145 mg PO DAILY 09/18/22 [History] Furosemide [Lasix] 20 mg PO DAILY 09/18/22 [History] Simvastatin 10 mg [Zocor 10MG] 10 mg PO DAILY 09/18/22 [History] Hx Tetanus, Diphtheria Vaccination/Date Given: No Hx Influenza Vaccination/Date Given: Yes Hx Pneumococcal Vaccination/Date Given: Yes Travel Risk - International Travel Have you traveled outside of the country in past 3 weeks: No - Coronavirus Screening Are you exhibiting any of the following symptoms?: No - Vaccine Status Have you recieved a Covid-19 vaccination: Yes Finance Insurance 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: Moderna - Vaccination Dates Date of 2cond Vaccination (if applicable): 2020 - Review of Systems Constitutional: No Fever, No Chills Eyes: No Symptoms Ears, Nose, & Throat: No Symptoms Respiratory: No Cough, No Dyspnea Cardiac: No Chest Pain, No Edema, No Syncope Abdominal/Gastrointestinal: No Abdominal Pain, No Nausea, No Vomiting, No Tania rrhea Genitourinary Symptoms: No Dysuria Musculoskeletal: No Back Pain, No Neck Pain Skin: No Rash Neurological: No Dizziness, No Focal Weakness, No Sensory Changes Psychological: No Symptoms Endocrine: No Symptoms All Other Systems: Reviewed and Negative - Past Medical History Pertinent Past Medical History: Yes Neurological History: Stroke ENT History: Cataracts Cardiac History: High Cholesterol, Hypertension Respiratory History: No Pertinent History Endocrine Medical History: Diabetes Type II Musculoskeletal History: Other GI Medical History: GERD, Gallbladder Disease, Ulcer History: Other Psycho-Social History: Anxiety, Depression Female Reproductive Disorders: Menstrual Problems Other Medical History: Interstitial Cystitis, Hysterectomy 1976, R knee meniscal tear. C 3-4, 5-6 Fusion 2009 - Past Surgical History Past Surgical History: Yes Neuro Surgical History: No Pertinent History Cardiac: No Pertinent History Respiratory: No Pertinent History Gastrointestinal: Cholecystectomy Genitourinary: No Pertinent History Musculoskeletal: Orthopedic Surgery Female Surgical History: Hysterectomy Other Surgical History: rt knee surgery--meniscus repair,Metal plate in neck after two neck surgeries - Social History Smoking Status: Never smoker Exposure to second hand smoke: No Drug Use: none Patient Lives Alone: Yes - Nursing Vital Signs Nursing Vital Signs: Initial Vital Signs Temperature 98.2 F 09/18/22 19:33 Pulse Rate 74 09/18/22 19:33 Respiratory Rate 18 09/18/22 19:33 Blood Pressure 171/62 09/18/22 19:33 O2 Sat by Pulse Oximetry 95 09/18/22 19:33 Pain Scale Pain Intensity 0 - Physical Exam General Appearance: no apparent distress, alert Eye Exam: PERRL/EOMI, eyes nml inspection Ears, Nose, Throat Exam: normal ENT inspection, TMs normal, pharynx normal, moist mucous membranes Neck Exam: normal inspection, non-tender, supple, full range of motion Respiratory Exam: normal breath sounds, lungs clear, No respiratory distress Cardiovascular Exam: regular rate/rhythm, normal heart sounds, normal peripheral pulses Gastrointestinal/Abdomen Exam: soft, normal bowel sounds, No tenderness, No mass Back Exam: normal inspection, normal range of motion, No CVA tenderness, No vertebral tenderness Extremity Exam: normal inspection, normal range of motion, pelvis stable Neurologic Exam: alert, oriented x 3, cooperative, normal mood/affect, nml cerebellar function, nml station & gait, sensation nml, No motor deficits Skin Exam: normal color, warm, dry, No rash Lymphatic Exam: No adenopathy SpO2: 95 - Course Nursing assessment & vital signs reviewed: Yes EKG Interpreted by Me: Sinus Rhythm Ordered Tests: Active Orders 24 hr Category Date Time Status Road Gang Supervisor STAT Care 09/18/22 19:45 Active EKG-ER Only STAT Care 09/18/22 19:44 Active IV Insertion STAT Care 09/18/22 19:44 Active HEAD WITHOUT CONTRAST [CT] Stat Exams 09/18/22 19:45 Completed CBC W DIFF Stat Lab 09/18/22 20:00 Completed CMP Stat Lab 09/18/22 20:00 Completed NT PRO BNPII Stat Lab 09/18/22 20:00 Completed TROPONIN Q4H Lab 09/18/22 20:00 Completed TROPONIN Q4H Lab 09/18/22 23:45 Ordered TROPONIN Q4H Lab 09/19/22 03:45 Ordered Medication Summary Discontinued Medications Generic Name Dose Route Start Last Admin Trade Name Ashley PRN Reason Stop Dose Admin Aspirin 324 mg 09/18/22 19:44 09/18/22 19:50 Aspirin 81 Mg Tab.Chew PO 09/18/22 19:45 Not Given STAT ONE Aspirin 243 mg 09/18/22 19:48 09/18/22 19:51 Aspirin 81 Mg Tab.Chew PO 09/18/22 19:49 243 mg STAT ONE Administration Lab/Rad Data: Laboratory Result Diagrams 09/18/22 20:00 09/18/22 20:00 Laboratory Results 09/18/22 09/18/22 09/18/22 Range/Units 20:00 20:00 20:00 WBC 5.1 (4.0-10.5) x10^3/uL RBC 4.35 (4.1-5.4) x10^6/uL Hgb 12.9 (12.0-16.0) g/dL Hct 40.1 (35-47) % MCV 92.2 (78-100) fL MCH 29.7 (26-32) pg MCHC 32.2 (32-36) g/dL RDW 13.1 (11.5-14.0) % Plt Count 224 (150-450) x10^3/uL MPV 11.1 H (7.5-11.0) fL Gran % 55.1 (36.0-66.0) % Immature Gran % (Auto) 0.2 (0.00-0.4) % Nucleat RBC Rel Count 0.0 (0.00-0.1) % Eos # (Auto) 0.11 (0-0.5) x10^3/uL Immature Gran # (Auto) 0.01 (0.00-0.03) x10^3u/L Absolute Lymphs (auto) 1.75 (1.0-4.6) x10^3/uL Absolute Monos (auto) 0.37 (0.0-1.3) x10^3/uL Absolute Nucleated RBC 0.00 (0.00-0.01) x10^3u/L Lymphocytes % 34.4 (24.0-44.0) % Monocytes % 7.3 (0.0-12.0) % Eosinophils % 2.2 (0.00-5.0) % Basophils % 0.8 (0.0-0.4) % Absolute Granulocytes 2.80 (1.4-6.9) x10^3/uL Basophils # 0.04 (0-0.4) x10^3/uL Sodium 140 (137-145) mmol/L Potassium 4.3 (3.5-5.1) mmol/L Chloride 107 (98-107) mmol/L Carbon Dioxide 24 (22-30) mmol/L Anion Gap 14.1 (5-15) MEQ/L BUN 22 H (7-17) mg/dL Creatinine 0.94 (0.52-1.04) mg/dL Estimated GFR > 60.0 ML/MIN Glucose 175 H (74-106) mg/dL Calcium 9.2 (8.4-10.2) mg/dL Total Bilirubin 0.40 (0.2-1.3) mg/dL AST 44 H (14-36) U/L ALT 44 H (0-35) U/L Alkaline Phosphatase 65 (38-126) U/L Troponin I < 0.012 (0.000-0.034) ng/mL NT-Pro-B Natriuret Pep 143 (<300) pg/mL Serum Total Protein 7.0 (6.3-8.2) g/dL Albumin 4.2 (3.5-5.0) g/dL - Progress Progress: improved Progress Note: 09/18/22 19:59 differential diagnosis includes: PNA, STEMI, NSTEMI, other infection, musculoskeletal pain, pneumothorax - We'll obtain basic labs, fluids, EKG, troponin, chest x-ray - I feel comfortable with one time negative troponin given symptoms have improved and started greater then 6 hours ago. - EKG shows no ST changes - my read. See full read below. - O2 saturations consistently greater than 95%. - CXR shows no pneumonia, pneumothorax - my read - no other obvious lab abnormalities 09/18/22 20:[address] shows no intracranial issues. No new strokes. Patient's blood pressure has continued to trend down without intervention here. 152/62 in the room right now. Patient currently asymptomatic. Plan for discharge home at this point in time. Patient need to return here for any new or changing symptoms. I did discuss all this with family. They will return here as stated Counseled pt/family regarding: lab results, diagnosis, need for follow-up, rad results - Departure Departure Disposition: Home Clinical Impression: High blood pressure Condition: Stable Critical Care Time: No Referrals: ODILIA ESCOBAR [Primary Care Provider] - Follow up/PCP as directed Instructions: Malignant Hypertension (DC)
[2022-09-18 20:02] LABS: BASOPHIL % 0.8 % (0.0-0.4); Basophil (Absolute #) 0.04 x10^3/uL (0-0.4); Eosinophil % 2.2 % (0.00-5.0); Eosinophil (Absolute #) 0.11 x10^3/uL (0-0.5); Hematocrit 40.1 % (35-47); Hemoglobin 12.9 g/dL (12.0-16.0); IMMATURE GRAN # 0.01 x10^3u/L (0.00-0.03); IMMATURE GRAN % 0.2 % (0.00-0.4); Lymphocyte (Absolute #) 1.75 x10^3/uL (1.0-4.6); Lymphocytes % 34.4 % (24.0-44.0); Mean Cell Volume 92.2 fL (78-100); Mean Corpuscular Hemoglobin 29.7 pg (26-32); Mean Corpuscular Hgb Concent. 32.2 g/dL (32-36); Mean Platelet Volume 11.1 fL (7.5-11.0); Monocyte (Absolute #) 0.37 x10^3/uL (0.0-1.3); Monocytes % 7.3 % (0.0-12.0); Neutrophil % 55.1 % (36.0-66.0); Platelet Count 224 x10^3/uL (150-450); Red Blood Count 4.35 x10^6/uL (4.1-5.4); Red Cell Distribution Width 13.1 % (11.5-14.0); White Blood Count 5.1 x10^3/uL (4.0-10.5)
--- NOTE | 2022-09-18 20:21 | XRAY ---
Indication: Headache. Multiple contiguous axial images obtained through the head without contrast. Comparison: March 14, 2018 Age-appropriate global atrophy with now minimal periventricular degenerative micro-ischemia bilaterally. New remote lacunar infarct right basal ganglia. No acute intracranial hemorrhage, abnormal extra-axial fluid collection, or mass effect. Fourth ventricle is midline without hydrocephalus. Bony calvarium intact. Again chronic mucoperiosteal thickening left sphenoid sinus. Remaining visualized paranasal sinuses and mastoid air cells are clear. Impression: Nonacute senile brain with new remote lacunar infarct right basal ganglia. Again chronic left sphenoid sinusitis.
[2022-09-18 20:23] LABS: ALBUMIN 4.2 g/dL (3.5-5.0); ALKALINE PHOSPHATASE 65 U/L (38-126); ANION GAP 14.1 MEQ/L (5-15); BLOOD UREA NITROGEN 22 mg/dL (7-17); CHLORIDE 107 mmol/L (98-107); Calcium 9.2 mg/dL (8.4-10.2); Carbon Dioxide 24 mmol/L (22-30); Creatinine 1 0.94 mg/dL (0.52-1.04); EST GLOMERULAR FILTRATION RATE > 60.0 ML/MIN; Glucose 175 mg/dL (74-106); NT PRO BNPII 143 pg/mL (<300); Potassium 4.3 mmol/L (3.5-5.1); SGOT/AST 44 U/L (14-36); SGPT/ALT 44 U/L (0-35); SODIUM 140 mmol/L (137-145)
[2022-09-18 20:30] VITALS: BP 158/62
[2022-09-18 20:51] VITALS: O2SAT 95
[2022-09-18 21:04] VITALS: PULSE 74
== END 2022-09-18 21:05 | disposition home or self-care (01) ==
LOC: ED 19:28
DX: I10 Essential (primary) hypertension (principal); E78.5 Hyperlipidemia, unspecified; E11.9 Type 2 diabetes mellitus without complications; Z79.891 Long term (current) use of opiate analgesic; Z79.84 Long term (current) use of oral hypoglycemic drugs; Z79.899 Other long term (current) drug therapy
CPT/HCPCS: 36000; 36415; 70450; 80053; 83880; 84484; 85025; 93005; 93041; 99284; A9270-GY

== ENCOUNTER 2022-09-22 06:32 | Emergency (ER) | payer MEDICARE, OTHER ==
[2022-09-22] MEDS ORDERED: TORAdol 30 mg Injection IM ONE (06:52)
[2022-09-22] MEDS ORDERED: TORAdol 30 mg Injection ONE (06:54)
--- NOTE | 2022-09-22 06:58 | ERPHSYRPT ---
<REUBEN ZHANG GalinaEj - Last Filed: 09/22/22 08:58> - History of Present Illness Source: patient Exam Limitations: no limitations Patient Subjective Stated Complaint: Pt reports "I was taking the dog out when he went up on the porch and as I was trying to get him down I tripped over the step and fell. My left leg hurts from the knee all the way to my ankle and my right knee hurts but the left leg is the worst. Triage Nursing Assessment: Pt alert and oriented x3. No apparent respiratory distress. Skin w/p/d. Wheeled to cot by ED staff and pt transferred assist x1 and with cane. No obvious deformities/lacerations/discoloration/swelling noted to bilat lower extremities. Tenderness upon palpation to left leg from the knee down. Pedal pulses strong and equal bilaterally. Occurred: other (1999 last night) Reason for Fall: slipped Injuries/Pain Location: lower extremity (L knee/ankle and R knee) Loss of Consciousness: no loss of consciousness Quality: aching Severity of Pain-Max: severe Severity of Pain-Current: severe Modifying Factors: Improves With: movement Associated Symptoms (Fall): denies symptoms, extremity injury Hx Tetanus, Diphtheria Vaccination/Date Given: No Hx Influenza Vaccination/Date Given: Yes Hx Pneumococcal Vaccination/Date Given: Yes <TRINIDAD WILSON - Last Filed: 09/23/22 23:01> - History of Present Illness Time Seen by Provider: 09/22/22 06:40 Physician History: 77 yo WF fell last night at 1999 and missed step while getting her dog off her porch. She complains of L knee pain/L ankle pain/R knee pain. Pain is 8/10 and worse w weight bearing. She denies LOC/head injury/C,T, and L-spine pain/chest pain/abdominal pain/hip pain. (TRINIDAD WILSON) Allergies/Adverse Reactions: Sulfa (Sulfonamide Antibiotics) [Sulfa(Sulfonamide Antibiotics)] Allergy (Severe, Verified 09/22/22 06:38) Hives Home Medications: Gabapentin 400 mg PO TID 03/14/18 [History] Magnesium Oxide 400 mg [Mag-Ox 400] 400 mg PO DAILY 03/14/18 [History] Metformin HCl 500 mg PO BID 03/14/18 [History] Omeprazole 40 mg PO DAILY 03/14/18 [History] Tramadol HCl 50 mg [Ultram 50 mg] 100 mg PO DAILY 03/14/18 [History] lisinopriL [Lisinopril] 40 mg PO DAILY 03/14/18 [History] Nortriptyline HCl 10 mg PO HS 08/29/18 [History] Potassium Chloride Tab* [Klor Con] 10 meq PO BID 08/29/18 [History] Venlafaxine HCl 37.5 mg [Effexor 37.5 mg] 37.5 mg PO DAILY 08/29/18 [History] Amlodipine Besylate 5 mg [Norvasc 5 mg] 5 mg PO DAILY 04/18/19 [History] HydrALAzine HCL 25 MG TAB [Apresoline 25 MG TABLET] 25 mg PO DAILY 04/18/19 [History] L.acidoph,Paracasei, B.lactis [Probiotic] 1 cap PO DAILY 04/18/19 [History] Waban-3 Fatty Acids/Fish Oil [Fish Oil 1,000 mg Capsule] 1 each PO BID 04/18/19 [History] cephALEXin [Keflex] 500 mg PO DAILY 04/18/19 [History] Fenofibrate,Micronized 145 mg* [Tricor 145 MG] 145 mg PO DAILY 09/18/22 [History] Furosemide [Lasix] 20 mg PO DAILY 09/18/22 [History] Simvastatin 10 mg [Zocor 10MG] 10 mg PO DAILY 09/18/22 [History] Travel Risk - International Travel Have you traveled outside of the country in past 3 weeks: No - Coronavirus Screening Are you exhibiting any of the following symptoms?: No Close contact with a COVID-19 positive Pt in past 14-21 Days: No - Vaccine Status Have you recieved a Covid-19 vaccination: Yes 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 - Vaccination Dates Date of 2cond Vaccination (if applicable): 2020 <TRINIDAD WILSON - Last Filed: 09/23/22 23:01> - Review of Systems Constitutional: No Symptoms Eyes: No Symptoms Ears, Nose, & Throat: No Symptoms Respiratory: No Symptoms Cardiac: No Symptoms Abdominal/Gastrointestinal: No Symptoms Genitourinary Symptoms: No Symptoms Skin: No Symptoms Neurological: No Symptoms Psychological: No Symptoms Endocrine: No Symptoms Hematologic/Lymphatic: No Symptoms Immunological/Allergic: No Symptoms <TRINIDAD WILSON - Last Filed: 09/23/22 23:01> - Past Medical History Pertinent Past Medical History: Yes Neurological History: Stroke ENT History: Cataracts Cardiac History: High Cholesterol, Hypertension Respiratory History: No Pertinent History Endocrine Medical History: Diabetes Type II Musculoskeletal History: Other GI Medical History: GERD, Gallbladder Disease, Ulcer History: Other Psycho-Social History: Anxiety, Depression Female Reproductive Disorders: Menstrual Problems Other Medical History: Interstitial Cystitis, Hysterectomy 1976, R knee meniscal tear. C 3-4, 5-6 Fusion 2008 - Past Surgical History Past Surgical History: Yes Neuro Surgical History: No Pertinent History Cardiac: No Pertinent History Respiratory: No Pertinent History Gastrointestinal: Cholecystectomy Genitourinary: No Pertinent History Musculoskeletal: Orthopedic Surgery Female Surgical History: Hysterectomy Other Surgical History: rt knee surgery--meniscus repair,Metal plate in neck after two neck surgeries - Social History Smoking Status: Never smoker Exposure to second hand smoke: No Drug Use: none Patient Lives Alone: No <TRINIDAD WILSON - Last Filed: 09/23/22 23:01> - Timothy Coma Score Best Eye Response (Momence): (4) open spontaneously Best Verbal Response (Momence): (5) oriented Best Motor Response (Momence): (6) obeys commands Momence Total: 15 - Physical Exam General Appearance: no apparent distress Head Injury: no evidence of injury Eye Exam: PERRL/EOMI, eyes nml inspection ENT Exam: airway nml, No evidence of ENT injury, No clear fluid (ears), No clear fluid (nose) Neck Exam: supple, trachea midline, normal inspection (C-spine nttp) Respiratory/Chest Exam: normal breath sounds, No chest tenderness Cardiovascular Exam: normal heart sounds, regular rate/rhythm, normal peripheral pulses, No murmur Gastrointestinal Exam: soft, normal bowel sounds, No tenderness Back Exam: normal inspection, normal range of motion, No CVA tenderness, No vertebral tenderness (No T or L-spine TTP) Extremity Exam: other (L knee mild TTP medially/No ecchymosis/No instability/L ankle TTP medially/No edema/R knee mildly TTP anteriorly/No edema) Neurologic Exam: alert, oriented x 3, 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, 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, normal mood/affect, sensation nml Skin Exam: normal color, warm, dry SpO2 Interpretation: normal SpO2: 97 O2 Delivery: Room Air <TRINIDAD WILSON - Last Filed: 09/23/22 23:01> - Nursing Vital Signs Nursing Vital Signs: Initial Vital Signs Temperature 97.4 F 09/22/22 06:37 Pulse Rate 69 09/22/22 06:37 Respiratory Rate 17 09/22/22 06:37 Blood Pressure 164/67 09/22/22 06:37 O2 Sat by Pulse Oximetry 97 09/22/22 06:37 Pain Scale Pain Intensity 7 Hypertensive (TRINIDAD WILSON) - Course Nursing assessment & vital signs reviewed: Yes <TRINIDAD WILSON - Last Filed: 09/23/22 23:01> Ordered Tests: Medication Summary Discontinued Medications Generic Name Dose Route Start Last Admin Trade Name Freq PRN Reason Stop Dose Admin Ketorolac Tromethamine 15 mg 09/22/22 06:52 09/22/22 06:59 Ketorolac Tromethamine 30 Mg/Ml Inj IM 09/22/22 06:53 15 mg STAT ONE Administration Ketorolac Tromethamine Confirm 09/22/22 06:54 Ketorolac Tromethamine 30 Mg/Ml Inj Administered 09/22/22 06:55 Dose 30 mg .ROUTE .STK-MED ONE <REUBEN ZHANG - Last Filed: 09/22/22 08:58> <TRINIDAD WILSON - Last Filed: 09/23/22 23:01> - Progress Progress Note: 09/22/22 08:58 Patient's medical issue is 1 of low complexity. This is based on the patient's history of present illness and physical findings. Dr. Wilson ordered the x- rays of the ankle and bilateral knees based on the above. I reviewed the radiology impression note. There are not no acute fractures or dislocations on any of the above studies. Discharge planning will be ice pack to the tender areas 3 times a day for the next 48 hours. Patient is to continue her tramadol. If there are no contraindications, she can add ibuprofen to pain control. Patient is to follow-up with her primary care provider or [facility] orthopedic clinic if symptoms persist beyond the next 48 hours. (REUBEN ZHANG) 09/22/22 07:08 Nursing note and vital signs reviewed No food or housing insecurities noted Pt is a full code 15mg IM Toradol given Care turned over to Dr. Zhang at 7AM (TRINIDAD WILSON) Medical Desision Making - Independent Historian Additional History obtained from: Spouse - Discussion of managment Reviewed:: Test results Agreed on:: Treatment plan, need for follow-up - Diagnostic Testing Diagnostic test were ordered, analyzed, and reviewed by me: Yes Radiological Interpretation: Reviewed by me, Teleradiologist Report - Risk of complications Low Risk: Low risk of morbidity from additional dx testing or treatment <REUBEN ZHANG - Last Filed: 09/22/22 08:58> - Departure Departure Disposition: Home Critical Care Time: No <REUBEN ZHANG - Last Filed: 09/22/22 08:58> <TRINIDAD WILSON - Last Filed: 09/23/22 23:01> - Departure Clinical Impression: Fall, Contusion of lower extremity Condition: Stable Referrals: ODILIA ESCOBAR [Primary Care Provider] - Follow up/PCP as directed Instructions: Minor Contusion ED, Preventing Falls ED Additional Instructions: Ice pack to tender areas 3 times a day for the next 48 hours. If pain persists beyond 48 hours, follow-up with your primary care provider or [facility] orthopedic clinic for further evaluation management. If there are no contraindications, add 600 mg ibuprofen with food 3 times a day for the next 5 days.
--- NOTE | 2022-09-22 08:47 | XRAY ---
Indication: Pain following fall. Comparison: None 3 portable views right knee demonstrates osteopenia, mild/moderate tricompartmental degenerative changes, tiny nonspecific effusion, and mild scattered vascular calcifications. No other bony, articular, or soft tissue abnormalities.
--- NOTE | 2022-09-22 08:50 | XRAY ---
Indication: Pain following fall. Comparison: None 3 portable views left knee demonstrates osteopenia, mild/moderate tricompartmental degenerative changes, tiny nonspecific effusion, and mild scattered vascular calcifications. No other bony, articular, or soft tissue abnormalities.
--- NOTE | 2022-09-22 08:50 | XRAY ---
Indication: Pain following fall. Comparison: None 3 portable views left ankle demonstrates osteopenia, tiny posterior heel spur, and mild lateral soft tissue swelling. No other bony, articular, or soft tissue abnormalities.
[2022-09-22 10:11] VITALS: BP 156/68; PULSE 60
[2022-09-23 23:01] VITALS: O2SAT 97
== END 2022-09-22 10:00 | disposition home or self-care (01) ==
LOC: ED 06:32
DX: S80.02XA Contusion of left knee, initial encounter (principal); S80.01XA Contusion of right knee, initial encounter; S90.02XA Contusion of left ankle, initial encounter; W10.8XXA Fall (on) (from) other stairs and steps, initial encounter; Y93.K1 Activity, walking an animal; Y92.007 Garden or yard of unspecified non-institutional (private) residence as the place of occurrence of the external cause; E78.5 Hyperlipidemia, unspecified; I10 Essential (primary) hypertension; E11.9 Type 2 diabetes mellitus without complications; Z79.84 Long term (current) use of oral hypoglycemic drugs; Z79.899 Other long term (current) drug therapy
CPT/HCPCS: 73562; 73610; 96372; 99283; J1885

== ENCOUNTER 2023-01-20 09:44 | Day surgery (SDC) | payer MEDICARE, OTHER ==
[2013-03-15 09:25] VITALS: BP 137/71
[2023-01-20] MEDS ORDERED: Depo-Medrol 40 MG/ML IM ONE (09:45)
[2023-01-20] MEDS ORDERED: BUPIVACAINE 0.5% VIAL IJ ONE (09:45)
[2023-01-20] MEDS ORDERED: DIPRIVAN 200 MG/20 ML IV ONE (11:11)
--- NOTE | 2023-01-20 13:08 | XRAY ---
Indication: Bilateral L3-S1 MBB. Intraoperative fluoroscopy provided for 15 seconds. Single digital spot image submitted for interpretation demonstrates posterior needle tips projecting over the expected left and right L3-S1 nerve roots. Correlate with intraoperative findings/report.
[2023-01-20] MEDS ORDERED: Lactated Ringers 1,000 ML IV ONE (13:34)
--- NOTE | 2023-01-20 13:56 | XRAY ---
15 seconds of fluoroscopy was used in surgery for a bilateral L3-S1 MBB.
== END 2023-01-20 11:40 | disposition home or self-care (01) ==
LOC: SDC-PAIN 09:44
PROVIDERS: ATTEND Psychiatry & Neurology Pain Medicine
DX: M47.816 Spondylosis without myelopathy or radiculopathy, lumbar region (principal); E11.9 Type 2 diabetes mellitus without complications; Z79.899 Other long term (current) drug therapy
CPT/HCPCS: 64493; 64494; 64495; 72020; 77002; 82947; J1030; J2704

== ENCOUNTER 2023-02-18 07:31 | Day surgery (SDC) | payer MEDICARE, OTHER ==
[2013-03-15 09:25] VITALS: BP 137/71
[2023-02-18] MEDS ORDERED: LIDOCAINE HCL 1% 50 MG/5 ML VL PF IJ ONE (07:32)
[2023-02-18] MEDS ORDERED: BUPIVACAINE 0.5% VIAL IJ ONE (07:32)
[2023-02-18] MEDS ORDERED: Depo-Medrol 40 MG/ML IM ONE (07:32)
[2023-02-18] MEDS ORDERED: DIPRIVAN 200 MG/20 ML IV ONE (08:59)
[2023-02-18] MEDS ORDERED: Lactated Ringers 1,000 ML IV ONE (09:26)
--- NOTE | 2023-02-18 10:24 | XRAY ---
Indication: Right L3-S1 RFA. Intraoperative fluoroscopy provided for 26 seconds. 5 digital spot image submitted for interpretation demonstrates posterior needle tips projecting over the expected right L3-S1 nerve roots. Correlate with intraoperative findings/report.
--- NOTE | 2023-02-18 10:31 | XRAY ---
26 seconds of fluoroscopy was used in surgery for a right L3-S1 RFA.
== END 2023-02-18 09:31 | disposition home or self-care (01) ==
LOC: SDC-PAIN 07:31
PROVIDERS: ATTEND Psychiatry & Neurology Pain Medicine
DX: M47.816 Spondylosis without myelopathy or radiculopathy, lumbar region (principal); E11.9 Type 2 diabetes mellitus without complications
CPT/HCPCS: 64635; 64636; 72100; 77002; 82947; 99100; J1030; J2001; J2704

== ENCOUNTER 2023-03-03 07:43 | Day surgery (SDC) | payer MEDICARE, OTHER ==
[2013-03-15 09:25] VITALS: BP 137/71
[2023-03-03] MEDS ORDERED: BUPIVACAINE 0.5% VIAL IJ ONE (07:44)
[2023-03-03] MEDS ORDERED: Depo-Medrol 40 MG/ML IM ONE (07:44)
[2023-03-03] MEDS ORDERED: LIDOCAINE HCL 1% 50 MG/5 ML VL PF IJ ONE (07:44)
[2023-03-03] MEDS ORDERED: DIPRIVAN 200 MG/20 ML IV ONE (09:19)
--- NOTE | 2023-03-03 11:40 | XRAY ---
Indication: Left L3-S1 RFA. Intraoperative fluoroscopy provided for 38 seconds. 5 digital spot images submitted for interpretation demonstrates posterior needle tips projecting over the expected left L3-S1 nerve roots. Correlate with intraoperative findings/report.
[2023-03-03] MEDS ORDERED: Lactated Ringers 1,000 ML IV ONE (13:08)
--- NOTE | 2023-03-03 13:30 | XRAY ---
38 seconds of fluoroscopy was used in surgery for a left L3-S1 RFA.
== END 2023-03-03 09:57 | disposition home or self-care (01) ==
LOC: SDC-PAIN 07:43
PROVIDERS: ATTEND Psychiatry & Neurology Pain Medicine
DX: M47.816 Spondylosis without myelopathy or radiculopathy, lumbar region (principal); E11.9 Type 2 diabetes mellitus without complications; Z79.899 Other long term (current) drug therapy
CPT/HCPCS: 64635; 64636; 72100; 77002; 82947; 99100; J1030; J2001; J2704

== ENCOUNTER 2024-01-12 07:53 | Observation (INO) | payer MEDICARE, OTHER ==
--- NOTE | 2024-01-12 08:37 | ERPHSYRPT ---
- History of Present Illness Time Seen by Provider: 01/12/24 08:22 Historian: patient, family (daughter) Exam Limitations: no limitations Patient Subjective Stated Complaint: Diarrhea Triage Nursing Assessment: Patient ambulated back to ED and transferred self to bed. Patient A+O X3. Patient's skin pink, warm and dry. Patient states she started having abdominal pain and N/V yesterday then started having diarrhea last night. Patient complains of abdominal, back pain and headache 7/10. Abdomen soft and round with BS X 4. Physician History: Pt states since yesterday she has had nausea, diarrhea without blood, achy lower abdominal pain up to 10/10 in severity and a frontal headache up to 10/10 in severity; today vomiting x1 without blood; denies chest pain, shortness of air, fever, chills. Pt also states she has had low back pain for the past week which she usually has before her interstitial cystitis treatments every 3 weeks for the past 5 years. Allergies/Adverse Reactions: Sulfa (Sulfonamide Antibiotics) [Sulfa(Sulfonamide Antibiotics)] Allergy (Severe, Verified 01/12/24 08:02) Hives Home Medications: Gabapentin 400 mg PO TID 03/14/18 [History] Magnesium Oxide 400 mg [Mag-Ox 400] 400 mg PO DAILY 03/14/18 [History] Metformin HCl 1,000 mg PO BID 03/14/18 [History] Omeprazole 40 mg PO DAILY 03/14/18 [History] Tramadol HCl 50 mg [Ultram 50 mg] 50 mg PO QID 03/14/18 [History] lisinopriL [Lisinopril] 40 mg PO DAILY 03/14/18 [History] Nortriptyline HCl 10 mg PO HS 08/29/18 [History] Potassium Chloride Tab* [Klor Con] 10 meq PO BID 08/29/18 [History] Venlafaxine HCl 37.5 mg [Effexor 37.5 mg] 37.5 mg PO DAILY 08/29/18 [History] Amlodipine Besylate 5 mg [Norvasc 5 mg] 5 mg PO BID 04/18/19 [History] HydrALAzine HCL 25 MG TAB [Apresoline 25 MG TABLET] 25 mg PO DAILY 04/18/19 [History] L.acidoph,Paracasei, B.lactis [Probiotic] 1 cap PO DAILY 04/18/19 [History] Melvin-3 Fatty Acids/Fish Oil [Fish Oil 1,000 mg Capsule] 1 each PO BID 04/18/19 [History] cephALEXin [Keflex] 500 mg PO DAILY 04/18/19 [History] Fenofibrate,Micronized 145 mg* [Tricor 145 MG] 145 mg PO DAILY 09/18/22 [History] Furosemide [Lasix] 20 mg PO DAILY 09/18/22 [History] Albuterol Sulfate [Albuterol Sulfate Hfa] 2 inh PO UD 01/12/24 [History] Hyoscyamine Sulfate 0.125 mg [Anaspaz 0.125 mg] 0.125 mg PO UD PRN 01/12/24 [History] Phenazopyridine HCl 200 mg [Pyridium 200 mg] 200 mg PO UD PRN 01/12/24 [History] Rosuvastatin Calcium 10 mg PO DAILY 01/12/24 [History] Semaglutide [Ozempic] 0.25 mg SQ WEEKLY 01/12/24 [History] Hx Tetanus, Diphtheria Vaccination/Date Given: No Hx Influenza Vaccination/Date Given: Yes Hx Pneumococcal Vaccination/Date Given: Yes Immunizations Up to Date: No Travel Risk - International Travel Have you traveled outside of the country in past 3 weeks: No - Emerging Infectious Disease Are you exhibiting symptoms associated with any current EIDs: No - Review of Systems Constitutional: No Fever Ears, Nose, & Throat: No Throat Pain Respiratory: No Dyspnea Cardiac: No Chest Pain Abdominal/Gastrointestinal: Abdominal Pain, Nausea, Vomiting, Diarrhea Musculoskeletal: Back Pain (low) Neurological: Headache - Past Medical History Pertinent Past Medical History: Yes Neurological History: Stroke ENT History: Cataracts Cardiac History: High Cholesterol, Hypertension Respiratory History: No Pertinent History Endocrine Medical History: Diabetes Type II Musculoskeletal History: Other GI Medical History: GERD, Gallbladder Disease, Ulcer History: Other Psycho-Social History: Anxiety, Depression Female Reproductive Disorders: Menstrual Problems Other Medical History: Interstitial Cystitis, Hysterectomy 1976, R knee meniscal tear. C 3-4, 5-6 Fusion 2008 - Past Surgical History Past Surgical History: Yes Neuro Surgical History: No Pertinent History Cardiac: No Pertinent History Respiratory: No Pertinent History Gastrointestinal: Cholecystectomy Genitourinary: No Pertinent History Musculoskeletal: Orthopedic Surgery Female Surgical History: Hysterectomy Other Surgical History: rt knee surgery--meniscus repair,Metal plate in neck after two neck surgeries - Social History Smoking Status: Never smoker Exposure to second hand smoke: No Drug Use: none Patient Lives Alone: No - Social Determinants of Health Will the patient participate in the screening: Yes Do you worry about a steady place to live?: No Do you have any problems with any of the following?: No known problems In the past 12 months,have you had to go without utilities?: No Transportation Issues: No Has anyone in your support network made you feel unsafe?: No Have you or anyone in your house had to go without enough: No - Nursing Vital Signs Nursing Vital Signs: Initial Vital Signs Temperature 97.8 F 01/12/24 08:06 Pulse Rate 75 01/12/24 08:06 Respiratory Rate 20 01/12/24 08:06 Blood Pressure 157/85 01/12/24 08:06 O2 Sat by Pulse Oximetry 98 01/12/24 08:06 Pain Scale Pain Intensity 7 - Physical Exam General Appearance: alert Eye Exam: eyes nml inspection Ears, Nose, Throat Exam: dry mucous membranes, other (cerumen occlusion of both ears) Neck Exam: normal inspection Respiratory Exam: lungs clear Cardiovascular Exam: normal heart sounds Gastrointestinal/Abdomen Exam: soft, tenderness (mild diffuse abdominal tenderness with mildly hyperactive B.S. ) Back Exam: normal inspection Extremity Exam: No pedal edema Neurologic Exam: alert, cooperative Skin Exam: warm, dry SpO2 Interpretation: normal SpO2: 98 O2 Delivery: Room Air - Course Nursing assessment & vital signs reviewed: Yes - CT Exams Head CT Interpretation: Discussed w/radiologist (Continue nonacute senile brain with remote lacunar infarct right basal ganglia and chronic left sphenoid sinusitis.) Abdomen/Pelvis CT Interpretation: Discussed w/radiologist (Diffuse colonic diarrhea. Chronic findings including duodenal diverticulum, arteriosclerotic disease, chronic bony findings and old granulomatous disease. Remaining CT abd/pel without contrast exam is negative.) Ordered Tests: Active Orders 24 hr Category Date Time Status IV Insertion STAT Care 01/12/24 08:38 Active ABDOMEN AND PELVIS W/0 CONTRAS [CT] Stat Exams 01/12/24 08:39 Completed HEAD WITHOUT CONTRAST [CT] Stat Exams 01/12/24 08:46 Completed AMYLASE Stat Lab 01/12/24 08:51 Completed CBC W DIFF Stat Lab 01/12/24 08:51 Completed CMP Stat Lab 01/12/24 08:51 Completed CULTURE,URINE Stat Lab 01/12/24 08:43 Received LIPASE Stat Lab 01/12/24 08:51 Completed MAGNESIUM Stat Lab 01/12/24 08:51 Completed UA W/RFX UR CULTURE Stat Lab 01/12/24 08:43 Completed Medication Summary Discontinued Medications Generic Name Dose Route Start Last Admin Trade Name Ashley PRN Reason Stop Dose Admin Sodium Chloride 1,000 mls @ 999 mls/hr 01/12/24 08:38 01/12/24 10:41 Sodium Chloride 0.9% 1000 Ml IV 01/12/24 09:38 Infused .Q1H1M STA Infusion Sodium Chloride Confirm 01/12/24 08:44 Sodium Chloride 0.9% 1000 Ml Administered 01/12/24 08:45 Dose 1,000 mls @ ud .ROUTE .STK-MED ONE Ceftriaxone Sodium 1 gm in 100 mls @ 200 mls/hr 01/12/24 09:21 01/12/24 10:41 Rocephin 1 Gm / 100 Ml Nacl IV 01/12/24 09:50 Infused STAT ONE Infusion Ceftriaxone Sodium Confirm 01/12/24 09:22 Rocephin 1 Gm / 100 Ml Nacl Administered 01/12/24 09:23 Dose 1 gm in 100 mls @ ud IV .STK-MED ONE Sodium Chloride 1,000 mls @ 999 mls/hr 01/12/24 09:39 01/12/24 10:42 Sodium Chloride 0.9% 1000 Ml IV 01/12/24 10:39 Infused .Q1H1M STA Infusion Sodium Chloride Confirm 01/12/24 09:41 Sodium Chloride 0.9% 1000 Ml Administered 01/12/24 09:42 Dose 1,000 mls @ ud .ROUTE .STK-MED ONE Morphine Sulfate 2 mg 01/12/24 08:38 01/12/24 08:46 Morphine Sulfate 2 Mg/Ml Inj IV 01/12/24 08:39 2 mg STAT ONE Administration Morphine Sulfate Confirm 01/12/24 08:44 Morphine Sulfate 4 Mg/Ml Injection Administered 01/12/24 08:45 Dose 4 mg .ROUTE .STK-MED ONE Morphine Sulfate Confirm 01/12/24 08:46 Morphine Sulfate 2 Mg/Ml Inj Administered 01/12/24 08:47 Dose 2 mg .ROUTE .STK-MED ONE Morphine Sulfate 4 mg 01/12/24 09:39 01/12/24 09:41 Morphine Sulfate 4 Mg/Ml Injection IV 01/12/24 09:40 4 mg STAT ONE Administration Morphine Sulfate Confirm 01/12/24 09:38 Morphine Sulfate 4 Mg/Ml Injection Administered 01/12/24 09:39 Dose 4 mg .ROUTE .STK-MED ONE Ondansetron HCl 4 mg 01/12/24 08:38 01/12/24 08:46 Ondansetron Hcl 4 Mg/2 Ml Vial IV 01/12/24 08:39 4 mg STAT ONE Administration Ondansetron HCl Confirm 01/12/24 08:44 Ondansetron Hcl 4 Mg/2 Ml Vial Administered 01/12/24 08:45 Dose 4 mg .ROUTE .STK-MED ONE Lab/Rad Data: Laboratory Result Diagrams 01/12/24 08:51 01/12/24 08:51 Laboratory Results 01/12/24 01/12/24 01/12/24 Range/Units 08:51 08:51 08:51 WBC 9.2 (3.98-10.04) x10^3/uL RBC 4.79 (3.93-5.22) x10^6/uL Hgb 13.9 (11.2-15.7) g/dL Hct 43.2 (34.1-44.9) % MCV 90.2 (79.4-94.8) fL MCH 29.0 (25.6-32.2) pg MCHC 32.2 (32.2-35.5) g/dL RDW 13.2 (11.7-14.4) % Plt Count 211 (182-369) x10^3/uL MPV 11.4 (9.4-12.3) fL Gran % 74.9 H (34.0-71.1) % Immature Gran % (Auto) 0.3 (0.001-0.429) % Nucleat RBC Rel Count 0.0 (0.00-0.2) % Eos # (Auto) 0.08 (0.04-0.36) x10^3/uL Immature Gran # (Auto) 0.03 (0.001-0.031) x10^3u/L Absolute Lymphs (auto) 1.50 (1.18-3.74) x10^3/uL Absolute Monos (auto) 0.67 (0.24-0.86) x10^3/uL Absolute Nucleated RBC 0.00 (0.00-0.012) x10^3u/L Lymphocytes % 16.3 L (19.3-51.7) % Monocytes % 7.3 (4.7-12.5) % Eosinophils % 0.9 (0.7-5.8) % Basophils % 0.3 (0.1-1.2) % Absolute Granulocytes 6.91 H (1.56-6.13) x10^3/uL Basophils # 0.03 (0.01-0.08) x10^3/uL Sodium 140 (135-145) mmol/L Potassium 4.5 (3.5-5.1) mmol/L Chloride 107 (98-107) mmol/L Carbon Dioxide 23 (22-30) mmol/L Anion Gap 15.2 H (5-15) MEQ/L BUN 32 H (7-17) mg/dL Creatinine 1.14 H (0.52-1.04) mg/dL Estimated GFR 48.7 ML/MIN Glucose 121 H (74-106) mg/dL Calcium 11.2 H (8.4-10.2) mg/dL Magnesium 2.4 H (1.6-2.3) mg/dL Total Bilirubin 0.50 (0.2-1.3) mg/dL AST 37 H (14-36) U/L ALT 31 (0-35) U/L Alkaline Phosphatase 54 (38-126) U/L Serum Total Protein 7.5 (6.3-8.2) g/dL Albumin 4.7 (3.5-5.0) g/dL Amylase 77 (30-110) U/L Lipase 78 (23-300) U/L Urine Color (Yellow) Urine Appearance (Clear) Urine pH (4.6-8.0) Ur Specific [place] (1.005-1.030) Urine Protein (Negative) Urine Glucose (UA) (Negative) mg/dL Urine Ketones (Negative) Urine Blood (Negative) Urine Nitrite (Negative) Urine Bilirubin (Negative) Urine Urobilinogen (0.2) mg/dL Ur Leukocyte Esterase (Negative) U Hyaline Cast (Auto) (0-2) /LPF Urine Microscopic RBC (0-5) /HPF Urine Microscopic WBC (0-5) /HPF Ur Epithelial Cells (None Seen) /HPF Calcium Oxalate Crystal (None Seen) /HPF Urine Bacteria (None Seen) /HPF Urine Culture Reflexed (NO) 01/12/24 Range/Units 08:43 WBC (3.98-10.04) x10^3/uL RBC (3.93-5.22) x10^6/uL Hgb (11.2-15.7) g/dL Hct (34.1-44.9) % MCV (79.4-94.8) fL MCH (25.6-32.2) pg MCHC (32.2-35.5) g/dL RDW (11.7-14.4) % Plt Count (182-369) x10^3/uL MPV (9.4-12.3) fL Gran % (34.0-71.1) % Immature Gran % (Auto) (0.001-0.429) % Nucleat RBC Rel Count (0.00-0.2) % Eos # (Auto) (0.04-0.36) x10^3/uL Immature Gran # (Auto) (0.001-0.031) x10^3u/L Absolute Lymphs (auto) (1.18-3.74) x10^3/uL Absolute Monos (auto) (0.24-0.86) x10^3/uL Absolute Nucleated RBC (0.00-0.012) x10^3u/L Lymphocytes % (19.3-51.7) % Monocytes % (4.7-12.5) % Eosinophils % (0.7-5.8) % Basophils % (0.1-1.2) % Absolute Granulocytes (1.56-6.13) x10^3/uL Basophils # (0.01-0.08) x10^3/uL Sodium (135-145) mmol/L Potassium (3.5-5.1) mmol/L Chloride (98-107) mmol/L Carbon Dioxide (22-30) mmol/L Anion Gap (5-15) MEQ/L BUN (7-17) mg/dL Creatinine (0.52-1.04) mg/dL Estimated GFR ML/MIN Glucose (74-106) mg/dL Calcium (8.4-10.2) mg/dL Magnesium (1.6-2.3) mg/dL Total Bilirubin (0.2-1.3) mg/dL AST (14-36) U/L ALT (0-35) U/L Alkaline Phosphatase (38-126) U/L Serum Total Protein (6.3-8.2) g/dL Albumin (3.5-5.0) g/dL Amylase (30-110) U/L Lipase (23-300) U/L Urine Color Yellow (Yellow) Urine Appearance HAZY (Clear) Urine pH 5.5 (4.6-8.0) Ur Specific [place] 1.025 (1.005-1.030) Urine Protein 30 (Negative) Urine Glucose (UA) Negative (Negative) mg/dL Urine Ketones Trace A (Negative) Urine Blood Negative (Negative) Urine Nitrite Negative (Negative) Urine Bilirubin Negative (Negative) Urine Urobilinogen 1.0 A (0.2) mg/dL Ur Leukocyte Esterase Small A (Negative) U Hyaline Cast (Auto) NONE SEEN (0-2) /LPF Urine Microscopic RBC 21-50 A (0-5) /HPF Urine Microscopic WBC 6-10 A (0-5) /HPF Ur Epithelial Cells None Seen (None Seen) /HPF Calcium Oxalate Crystal 11-25 A (None Seen) /HPF Urine Bacteria Many A (None Seen) /HPF Urine Culture Reflexed YES (NO) - Progress Progress: improved Discussed with : Abel (Spoke with & discussed pt with Dr. Carey - obs) Will see patient in: hospital (observation) Counseled pt/family regarding: lab results, diagnosis, rad results Medical Desision Making - Diagnostic Testing Diagnostic test were ordered, analyzed, and reviewed by me: Yes Radiological Interpretation: Discussed w/ radiologist - Departure Departure Disposition: Observation Clinical Impression: Abdominal pain, UTI (urinary tract infection), Diarrhea, Vomiting Condition: Stable Critical Care Time: No Referrals: ODILIA ESCOBAR [Primary Care Provider] - Follow up/PCP as directed
[2024-01-12] MEDS ORDERED: Zofran 4 MG/2 ML VIAL ONE (08:44)
[2024-01-12] MEDS ORDERED: Sodium Chloride 0.9% 1000 ML 1,000 ML ONE ×2 (08:44→09:41)
[2024-01-12] MEDS ORDERED: MORPHINE SULFATE 4 MG INJ ONE ×3 (08:44→14:29)
[2024-01-12] MEDS ORDERED: MORPHINE SULFATE 2 MG INJ ONE (08:46)
[2024-01-12] MEDS: Sodium Chloride 0.9% 1000 ML 1,000 ML IV STA ×2 (08:46→09:41)
[2024-01-12] MEDS: MORPHINE SULFATE 2 MG INJ IV ONE (08:46)
[2024-01-12] MEDS: Zofran 4 MG/2 ML VIAL IV ONE (08:46)
[2024-01-12 08:55] LABS: Absolute Neutrophil Ct (ANC) 6.91 x10^3/uL (1.56-6.13); BASOPHIL % 0.3 % (0.1-1.2); Basophil (Absolute #) 0.03 x10^3/uL (0.01-0.08); Eosinophil % 0.9 % (0.7-5.8); Eosinophil (Absolute #) 0.08 x10^3/uL (0.04-0.36); Hematocrit 43.2 % (34.1-44.9); Hemoglobin 13.9 g/dL (11.2-15.7); IMMATURE GRAN # 0.03 x10^3u/L (0.001-0.031); IMMATURE GRAN % 0.3 % (0.001-0.429); Lymphocytes % 16.3 % (19.3-51.7); Mean Cell Volume 90.2 fL (79.4-94.8); Mean Corpuscular Hgb Concent. 32.2 g/dL (32.2-35.5); Mean Platelet Volume 11.4 fL (9.4-12.3); Monocyte (Absolute #) 0.67 x10^3/uL (0.24-0.86); Monocytes % 7.3 % (4.7-12.5); Neutrophil % 74.9 % (34.0-71.1); Platelet Count 211 x10^3/uL (182-369); Red Blood Count 4.79 x10^6/uL (3.93-5.22); Red Cell Distribution Width 13.2 % (11.7-14.4); White Blood Count 9.2 x10^3/uL (3.98-10.04)
[2024-01-12 09:08] LABS: ALBUMIN 4.7 g/dL (3.5-5.0); ANION GAP 15.2 MEQ/L (5-15); BILIRUBIN,TOTAL 0.5 mg/dL (0.2-1.3); Calcium 11.2 mg/dL (8.4-10.2); Creatinine 1 1.14 mg/dL (0.52-1.04); EST GLOMERULAR FILTRATION RATE 48.7 ML/MIN; Potassium 4.5 mmol/L (3.5-5.1); Total Protein 7.5 g/dL (6.3-8.2)
[2024-01-12 09:12] LABS: Bacteria Many /HPF (None Seen); Bilirubin Negative (Negative); Blood Negative (Negative); Epithelial Cells None Seen /HPF (None Seen); Glucose, Urine Negative (Negative); Hyaline Casts NONE SEEN /LPF (0-2); Ketones Trace (Negative); Leukocyte Esterase Small (Negative); Nitrite Negative (Negative); Ph 5.5 (4.6-8.0); Protein,Urine Dip 30 (Negative); RBC 21-50 /HPF (0-5); Specific Gravity 1.025 (1.005-1.030)
[2024-01-12 09:14] LABS: Appearance HAZY (Clear)
[2024-01-12 09:17] LABS: ADD URINE CULTURE? YES (NO)
[2024-01-12] MEDS ORDERED: ROCEPHIN 1 GM / 100 ML NaCl 1 GM/100 ML IVPB IV ONE (09:22)
[2024-01-12] MEDS: ROCEPHIN 1 GM / 100 ML NaCl 1 GM/100 ML IVPB IV ONE (09:24)
[2024-01-12] MEDS: MORPHINE SULFATE 4 MG INJ IV ONE ×2 (09:41→14:30)
--- NOTE | 2024-01-12 09:48 | XRAY ---
Indication: Headache. History stroke. Multiple contiguous axial images obtained through the head without contrast. Comparison: September 18, 2022 Again age-appropriate global atrophy, minimal periventricular degenerative micro-ischemia, and remote lacunar infarct right basal ganglia. No acute intracranial hemorrhage, abnormal extra-axial fluid collection, or mass effect. Fourth ventricle is midline without hydrocephalus. Gorman-white matter differentiation preserved. Bony calvarium intact. Again chronic mucoperiosteal thickening left sphenoid sinus. Remaining visualized paranasal sinuses and mastoid air cells are clear. Inversion: Continue nonacute senile brain with remote lacunar infarct right basal ganglia and chronic left sphenoid sinusitis.
--- NOTE | 2024-01-12 09:54 | XRAY ---
Indication: Abdominal pain, nausea, vomiting, diarrhea. Multiple contiguous axial images obtained through the abdomen and pelvis without contrast. Comparison: None Lung bases demonstrate scattered peripheral fibrosis/scarring and tiny bibasilar calcified granulomas. No infiltrate or effusion. Heart not enlarged with incidental small left infrahilar calcified nodes. Stomach is mildly distended with food. Small descending duodenal diverticulum. Noncontrasted stomach and bowel loops appear nonobstructed. Mild diffuse fluid distended colon with fluid leveling favoring diarrhea. Appendectomy, hysterectomy, and cholecystectomy. No free fluid/air. Remaining liver, pancreas, spleen, adrenal glands, kidneys, ureters, and bladder are unremarkable for noncontrast exam. Moderate scattered arteriosclerotic calcifications including left main renal artery. No AAA. Osseous structures intact with osteopenia, mild/moderate degenerative changes throughout spine, mild degenerative changes both hips, and minimal dextroscoliosis. No ventral or inguinal hernias. Impression: 1. Diffuse colonic diarrhea. 2. Chronic findings including duodenal diverticulum, arteriosclerotic disease, chronic bony findings, and old granulomatous disease. 3. Remaining CT abdomen/pelvis without contrast exam is negative.
[2024-01-12] MEDS ORDERED: MORPHINE SULFATE 2 MG INJ IV PRN (14:54)
[2024-01-12] MEDS ORDERED: Zofran 4 MG/2 ML VIAL IV PRN (14:54)
--- NOTE | 2024-01-12 15:21 | PCM.HP ---
History of Present Illness - Chief Complaint Chief Complaint: Abdominal pain; vomiting; diarrhea; UTI Date: 01/12/24 History of Present Illness: is a 78 year old female with PMHX of Stroke, chronic constipation, cataracts, Hyperlipidemia, HTN, Type II DM, GERD, Anxiety, Depression, Interstital cystitis with recent procedure Wednesday, C3- C4, C5-C6 fusion 2008. Pt states since yesterday she has had nausea, diarrhea without blood, achy lower abdominal pain up to 10/10 in severity and a frontal headache up to 10/10 in severity; today vomiting x1 without blood; denies chest pain, shortness of air, fever, chills. Pt also states she has had low back pain for the past week which she usually has before her interstitial cystitis treatments every 3 weeks for the past 5 years. She was found to have a UTI in ER and pt states she has chronic UTI's on chronic antibiotics for this. Back has resolved 0/10 pain with IV morphine gave in ER. Last time she had diarrhea was 8am. N/V resolved. H/A resolved. Will recheck labs. If doing better may d/c tomorrow as it will be her birthday and her family is planning a libertarian for her. - Review of Systems Constitutional: No Fever, No Chills Eyes: No Symptoms Ears, Nose, & Throat: No Symptoms Respiratory: No Cough, No Short Of Breath Cardiac: No Chest Pain, No Edema, No Syncope Abdominal/Gastrointestinal: Abdominal Pain, Nausea, Vomiting, Diarrhea Genitourinary Symptoms: No Dysuria Musculoskeletal: Back Pain, No Neck Pain Skin: No Rash Neurological: Headache, No Dizziness, No Focal Weakness, No Sensory Changes Psychological: No Symptoms Endocrine: No Symptoms Hematologic/Lymphatic: No Symptoms Immunological/Allergic: No Symptoms Medications & Allergies Home Medications: Home Medication List Gabapentin 400 mg PO TID 03/14/18 [History Confirmed 01/12/24] Magnesium Oxide 400 mg [Mag-Ox 400] 400 mg PO DAILY 03/14/18 [History Confirmed 01/12/24] Metformin HCl 1,000 mg PO QAM 03/14/18 [History Confirmed 01/12/24] Omeprazole 40 mg PO DAILY 03/14/18 [History Confirmed 01/12/24] Tramadol HCl 50 mg [Ultram 50 mg] 50 mg PO QID 03/14/18 [History Confirmed 01/12/24] lisinopriL [Lisinopril] 40 mg PO DAILY 03/14/18 [History Confirmed 01/12/24] Nortriptyline HCl 10 mg PO HS 08/29/18 [History Confirmed 01/12/24] Potassium Chloride Tab* [Klor Con] 10 meq PO BID 08/29/18 [History Confirmed 01/12/24] Venlafaxine HCl 37.5 mg [Effexor 37.5 mg] 37.5 mg PO DAILY 08/29/18 [History Confirmed 01/12/24] Clopidogrel Bisulfate [PLAVIX Tablet] 75 mg PO DAILY #30 tablet 08/30/18 [Rx Confirmed 01/12/24] Amlodipine Besylate 5 mg [Norvasc 5 mg] 5 mg PO BID 04/18/19 [History Confirmed 01/12/24] HydrALAzine HCL 25 MG TAB [Apresoline 25 MG TABLET] 25 mg PO QID 04/18/19 [History Confirmed 01/12/24] L.acidoph,Paracasei, B.lactis [Probiotic] 1 cap PO DAILY 04/18/19 [History Confirmed 01/12/24] [place]-3 Fatty Acids/Fish Oil [Fish Oil 1,000 mg Capsule] 1 each PO BID 04/18/19 [History Confirmed 01/12/24] cephALEXin [Keflex] 500 mg PO DAILY 04/18/19 [History Confirmed 01/12/24] Fenofibrate,Micronized 145 mg* [Tricor 145 MG] 145 mg PO DAILY 09/18/22 [History Confirmed 01/12/24] Furosemide [Lasix] 20 mg PO DAILY 09/18/22 [History Confirmed 01/12/24] Albuterol Sulfate [Albuterol Sulfate Hfa] 2 inh PO UD 01/12/24 [History Confirmed 01/12/24] Beta-Carotene(A) W-C & E/Min [Ocuvite Tablet] 1 tab PO DAILY 01/12/24 [History Confirmed 01/12/24] Cholecalciferol (Vitamin D3) [Vitamin D3] 25 mcg PO DAILY 01/12/24 [History Confirmed 01/12/24] Fluticasone Propionate 1 spray IH DAILY PRN PRN 01/12/24 [History Confirmed 01/12/24] Hyoscyamine Sulfate 0.125 mg [Anaspaz 0.125 mg] 0.125 mg PO UD PRN 01/12/24 [History Confirmed 01/12/24] Metformin HCl 500 mg [Glucophage 500 MG] 500 mg PO EVENING MEAL 01/12/24 [History Confirmed 01/12/24] Multivitamin/Iron/Folic Acid [Eq Complete Multivitamin Tab] 1 each PO DAILY 01/12/24 [History Confirmed 01/12/24] Nitroglycerin 0.4 mg Tablet [Nitrostat 0.4 MG Tablet] 0.4 mg PO UD 01/12/24 [History Confirmed 01/12/24] Phenazopyridine HCl 200 mg [Pyridium 200 mg] 200 mg PO UD PRN 01/12/24 [History Confirmed 01/12/24] Rosuvastatin Calcium 10 mg PO DAILY 01/12/24 [History Confirmed 01/12/24] Semaglutide [Ozempic] 0.25 mg SQ WEEKLY 01/12/24 [History Confirmed 01/12/24] Allergies/Adverse Reactions: Allergies Allergy/AdvReac Type Severity Reaction Status Date / Time Sulfa (Sulfonamide Allergy Severe Hives Verified 01/12/24 08:02 Antibiotics) [Sulfa(Sulfonamide Antibiotics)] - Past Medical History Past Medical History: Yes Neurological History: Stroke ENT History: Cataracts Cardiac History: High Cholesterol, Hypertension Respiratory History: No Pertinent History Endocrine Medical History: Diabetes Type II Musculoskelatal History: Other GI Medical History: GERD, Gallbladder Disease, Ulcer History: Other Pyscho-Social History: Anxiety, Depression Reproductive Disorders: Menstrual Problems Comment: Interstitial Cystitis, Hysterectomy 1976, R knee meniscal tear. C 3-4, 5-6 Fusion 2008 - Past Surgical History Past Surgical History: Yes Neuro Surgical History: No Pertinent History Cardiac History: No Pertinent History Respiratory Surgery: No Pertinent History GI Surgical History: Cholecystectomy Genitourinary Surgical Hx: No Pertinent History Musculskeletal Surgical Hx: Orthopedic Surgery Female Surgical History: Hysterectomy Other Surgical History: rt knee surgery--meniscus repair,Metal plate in neck after two neck surgeries - Social History Smoking Status: Never smoker Exposure to second hand smoke: No Alcohol: None Drug Use: none - Social Determinants of Health Will the patient participate in the screening: Yes Do you worry about a steady place to live?: No Do you have any problems with any of the following?: No known problems In the past 12 months,have you had to go without utilities?: No Have you or anyone in your house had to go without enough: No Transportation Issues: No Has anyone in your support network made you feel unsafe?: No - Physical Exam Vital Signs: Vital Signs - 24 hr Temp Pulse Resp BP BP Pulse Ox 01/12/24 14:00 133/66 95 01/12/24 13:30 118/53 95 01/12/24 13:00 124/63 95 01/12/24 12:50 98 01/12/24 12:30 142/68 98 01/12/24 12:00 142/68 91 L 01/12/24 11:30 144/97 91 L 01/12/24 11:00 154/76 01/12/24 10:44 162/74 90 L 01/12/24 08:30 147/79 97 01/12/24 08:06 97.8 F 75 20 157/85 98 General Appearance: no apparent distress, alert Neurologic Exam: alert, oriented x 3, cooperative, normal mood/affect, nml cerebellar function, nml station & gait, sensation nml, No motor deficits Eye Exam: PERRL/EOMI, eyes nml inspection Ears, Nose, Throat Exam: normal ENT inspection, TMs normal, pharynx normal, moist mucous membranes Neck Exam: normal inspection, non-tender, supple, full range of motion Respiratory Exam: normal breath sounds, lungs clear, No respiratory distress Cardiovascular Exam: regular rate/rhythm, normal heart sounds, normal peripheral pulses Gastrointestinal/Abdomen Exam: soft, normal bowel sounds, tenderness (with palpation), No mass Back Exam: normal inspection, normal range of motion, No CVA tenderness, No vertebral tenderness Extremity Exam: normal inspection, normal range of motion, pelvis stable Skin Exam: normal color, warm, dry, No rash Lymphatic Exam: No adenopathy Results - Labs Lab/Micro Results: Lab Results-Last 24 Hours 01/12/24 01/12/24 01/12/24 Range/Units 08:43 08:51 08:51 WBC 9.2 (3.98-10.04) x10^3/uL RBC 4.79 (3.93-5.22) x10^6/uL Hgb 13.9 (11.2-15.7) g/dL Hct 43.2 (34.1-44.9) % MCV 90.2 (79.4-94.8) fL MCH 29.0 (25.6-32.2) pg MCHC 32.2 (32.2-35.5) g/dL RDW 13.2 (11.7-14.4) % Plt Count 211 (182-369) x10^3/uL MPV 11.4 (9.4-12.3) fL Gran % 74.9 H (34.0-71.1) % Immature Gran % (Auto) 0.3 (0.001-0.429) % Nucleat RBC Rel Count 0.0 (0.00-0.2) % Eos # (Auto) 0.08 (0.04-0.36) x10^3/uL Immature Gran # (Auto) 0.03 (0.001-0.031) x10^3u/L Absolute Lymphs (auto) 1.50 (1.18-3.74) x10^3/uL Absolute Monos (auto) 0.67 (0.24-0.86) x10^3/uL Absolute Nucleated RBC 0.00 (0.00-0.012) x10^3u/L Lymphocytes % 16.3 L (19.3-51.7) % Monocytes % 7.3 (4.7-12.5) % Eosinophils % 0.9 (0.7-5.8) % Basophils % 0.3 (0.1-1.2) % Absolute Granulocytes 6.91 H (1.56-6.13) x10^3/uL Basophils # 0.03 (0.01-0.08) x10^3/uL Sodium 140 (135-145) mmol/L Potassium 4.5 (3.5-5.1) mmol/L Chloride 107 (98-107) mmol/L Carbon Dioxide 23 (22-30) mmol/L Anion Gap 15.2 H (5-15) MEQ/L BUN 32 H (7-17) mg/dL Creatinine 1.14 H (0.52-1.04) mg/dL Estimated GFR 48.7 ML/MIN Glucose 121 H (74-106) mg/dL Calcium 11.2 H (8.4-10.2) mg/dL Magnesium (1.6-2.3) mg/dL Total Bilirubin 0.50 (0.2-1.3) mg/dL AST 37 H (14-36) U/L ALT 31 (0-35) U/L Alkaline Phosphatase 54 (38-126) U/L Serum Total Protein 7.5 (6.3-8.2) g/dL Albumin 4.7 (3.5-5.0) g/dL Amylase 77 (30-110) U/L Lipase 78 (23-300) U/L Urine Color Yellow (Yellow) Urine Appearance HAZY (Clear) Urine pH 5.5 (4.6-8.0) Ur Specific [place] 1.025 (1.005-1.030) Urine Protein 30 (Negative) Urine Glucose (UA) Negative (Negative) mg/dL Urine Ketones Trace A (Negative) Urine Blood Negative (Negative) Urine Nitrite Negative (Negative) Urine Bilirubin Negative (Negative) Urine Urobilinogen 1.0 A (0.2) mg/dL Ur Leukocyte Esterase Small A (Negative) U Hyaline Cast (Auto) NONE SEEN (0-2) /LPF Urine Microscopic RBC 21-50 A (0-5) /HPF Urine Microscopic WBC 6-10 A (0-5) /HPF Ur Epithelial Cells None Seen (None Seen) /HPF Calcium Oxalate Crystal 11-25 A (None Seen) /HPF Urine Bacteria Many A (None Seen) /HPF Urine Culture Reflexed YES (NO) 01/12/24 Range/Units 08:51 WBC (3.98-10.04) x10^3/uL RBC (3.93-5.22) x10^6/uL Hgb (11.2-15.7) g/dL Hct (34.1-44.9) % MCV (79.4-94.8) fL MCH (25.6-32.2) pg MCHC (32.2-35.5) g/dL RDW (11.7-14.4) % Plt Count (182-369) x10^3/uL MPV (9.4-12.3) fL Gran % (34.0-71.1) % Immature Gran % (Auto) (0.001-0.429) % Nucleat RBC Rel Count (0.00-0.2) % Eos # (Auto) (0.04-0.36) x10^3/uL Immature Gran # (Auto) (0.001-0.031) x10^3u/L Absolute Lymphs (auto) (1.18-3.74) x10^3/uL Absolute Monos (auto) (0.24-0.86) x10^3/uL Absolute Nucleated RBC (0.00-0.012) x10^3u/L Lymphocytes % (19.3-51.7) % Monocytes % (4.7-12.5) % Eosinophils % (0.7-5.8) % Basophils % (0.1-1.2) % Absolute Granulocytes (1.56-6.13) x10^3/uL Basophils # (0.01-0.08) x10^3/uL Sodium (135-145) mmol/L Potassium (3.5-5.1) mmol/L Chloride (98-107) mmol/L Carbon Dioxide (22-30) mmol/L Anion Gap (5-15) MEQ/L BUN (7-17) mg/dL Creatinine (0.52-1.04) mg/dL Estimated GFR ML/MIN Glucose (74-106) mg/dL Calcium (8.4-10.2) mg/dL Magnesium 2.4 H (1.6-2.3) mg/dL Total Bilirubin (0.2-1.3) mg/dL AST (14-36) U/L ALT (0-35) U/L Alkaline Phosphatase (38-126) U/L Serum Total Protein (6.3-8.2) g/dL Albumin (3.5-5.0) g/dL Amylase (30-110) U/L Lipase (23-300) U/L Urine Color (Yellow) Urine Appearance (Clear) Urine pH (4.6-8.0) Ur Specific [place] (1.005-1.030) Urine Protein (Negative) Urine Glucose (UA) (Negative) mg/dL Urine Ketones (Negative) Urine Blood (Negative) Urine Nitrite (Negative) Urine Bilirubin (Negative) Urine Urobilinogen (0.2) mg/dL Ur Leukocyte Esterase (Negative) U Hyaline Cast (Auto) (0-2) /LPF Urine Microscopic RBC (0-5) /HPF Urine Microscopic WBC (0-5) /HPF Ur Epithelial Cells (None Seen) /HPF Calcium Oxalate Crystal (None Seen) /HPF Urine Bacteria (None Seen) /HPF Urine Culture Reflexed (NO) - Radiology Impressions Radiology Exams & Impressions: Radiology Procedures Category Date Time Status ABDOMEN AND PELVIS W/0 CONTRAS [CT] Stat Exams 01/12/24 08:39 Completed HEAD WITHOUT CONTRAST [CT] Stat Exams 01/12/24 08:46 Completed Assessment/Plan (1) Complicated UTI (urinary tract infection) Current Visit: Yes Status: Acute Assessment & Plan: - Ceftriaxone started in ER continue - UC pending Code(s): N39.0 - URINARY TRACT INFECTION, SITE NOT SPECIFIED (2) Back pain Current Visit: Yes Status: Acute Assessment & Plan: - Morphine started in ER - Change to Tramadol and tylenol PO PRN Code(s): M54.9 - DORSALGIA, UNSPECIFIED (3) Abdominal pain Current Visit: Yes Status: Acute Code(s): R10.9 - UNSPECIFIED ABDOMINAL PAIN (4) Diarrhea Current Visit: Yes Status: Acute Assessment & Plan: - Continue Probitiocs Code(s): R19.7 - DIARRHEA, UNSPECIFIED (5) Vomiting Current Visit: Yes Status: Acute Assessment & Plan: - Zofran PRN Code(s): R11.10 - VOMITING, UNSPECIFIED (6) Chronic interstitial cystitis with hematuria Current Visit: No Status: Acute Assessment & Plan: - Ceftriaxone IV started in ER continue - UC pending - Wednesday had a procedure with urologist for Interstital cyctitis, pt states they had a difficult time getting cath in and has felt worse daily since then. - Pt scheduled to see a PT for pelvic floor therapy OP Code(s): N30.11 - INTERSTITIAL CYSTITIS (CHRONIC) WITH HEMATURIA (7) GERD (gastroesophageal reflux disease) Current Visit: No Status: Chronic Assessment & Plan: - Continue omeprazole Code(s): K21.9 - GASTRO-ESOPHAGEAL REFLUX DISEASE WITHOUT ESOPHAGITIS (8) Type 2 diabetes mellitus Current Visit: No Status: Chronic Qualifiers: Diabetes mellitus alf insulin use: with intermodal customer service use Diabetes mellitus complication status: without complication Qualified Code(s): E11.9 - Type 2 diabetes mellitus without complications; Z79.4 - correction (current) use of insulin Assessment & Plan: - Carb Consistent diet - A1C pending - Hold metformin d/t BLOSSOM - Accuchecks Ac/HS - Low dose s/s - May use Dexcom (9) Dehydration Current Visit: Yes Status: Acute Assessment & Plan: - anion gap elevated - IVF - 2:2 N/V/D Code(s): E86.0 - DEHYDRATION (10) Hypercalcemia Current Visit: Yes Status: Acute Assessment & Plan: - Ca+ 11.2 in ER- recheck Code(s): E83.52 - HYPERCALCEMIA (11) Hypermagnesemia Current Visit: Yes Status: Acute Assessment & Plan: - Mg+ 2.4 in ER- recheck - IVF gave in ER- continue - Tele Code(s): E83.41 - HYPERMAGNESEMIA (12) Anxiety with depression Current Visit: Yes Status: Chronic Assessment & Plan: - Continue Effexor Code(s): F41.8 - OTHER SPECIFIED ANXIETY DISORDERS (13) Obesity (BMI 30.0-34.9) Current Visit: Yes Status: Chronic Assessment & Plan: - advised ADA diet and exercise control Code(s): E66.9 - OBESITY, UNSPECIFIED Telemedicine Encounter - Telemedicine Encounter Telemedicine Encounter: The entirety of this encounter was performed via Telemedicine" This visit was performed using real-time audio and video connection between my location and thepatients locationwith the assistance of a surrogateat the patients location. Written or verbal consent was obtained from the patient/guardian to perform this [facility]. Any patient questions regarding the telemedicine interaction were answered.
[2024-01-12] MEDS ORDERED: HUMALOG SQ PRN (15:27)
[2024-01-12] MEDS ORDERED: Flonase NASAL NS PRN (15:52)
[2024-01-12] MEDS ORDERED: ANASPAZ 0.125 MG PO PRN ×2 (15:52→17:09)
[2024-01-12] MEDS ORDERED: PYRIDIUM 200 MG PO PRN ×2 (15:52→17:11)
[2024-01-12] MEDS ORDERED: NON-FORMULARY ITEM (Albuterol Sulfate 8.5 GM Hfa.Aer.Ad) PO SCH (16:00)
[2024-01-12 16:14] LABS: ALBUMIN 3.7 g/dL (3.5-5.0); ANION GAP 10.1 MEQ/L (5-15); BILIRUBIN,TOTAL 0.3 mg/dL (0.2-1.3); Calcium 9.1 mg/dL (8.4-10.2); Creatinine 1 0.91 mg/dL (0.52-1.04); EST GLOMERULAR FILTRATION RATE 63.8 ML/MIN; Potassium 4.2 mmol/L (3.5-5.1)
[2024-01-12] MEDS ORDERED: MEDICATION INTERVENTION MC SCH ×4 (16:30)
[2024-01-12] MEDS ORDERED: VENTOLIN COMMON CANISTER IH PRN (17:10)
[2024-01-12] MEDS: Apresoline 25 MG TABLET PO SCH (17:38)
[2024-01-12] MEDS: Sodium Chloride 0.9% 1000 ML 1,000 ML IV SCH (17:39)
[2024-01-12] MEDS: NORVASC 5 MG PO SCH (21:18)
[2024-01-12] MEDS: Neurontin PO SCH (21:18)
[2024-01-12] MEDS: FISH OIL 1,000 MG CAPSULE PO SCH (21:18)
[2024-01-12] MEDS: ULTRAM 50 MG PO PRN (21:19)
[2024-01-12] MEDS ORDERED: NORTRIPTYLINE HCL 10 MG PO SCH (22:00)
[2024-01-12] MEDS ORDERED: NEURONTIN PO SCH (22:00)
[2024-01-12] MEDS ORDERED: NON-FORMULARY ITEM (Omega-3 Fatty Acids/Fish Oil [Fish Oil 1,000 Mg Capsule] 1 EACH Capsul PO SCH (22:00)
[2024-01-13 04:57] LABS: Absolute Neutrophil Ct (ANC) 3.21 x10^3/uL (1.56-6.13); BASOPHIL % 0.2 % (0.1-1.2); Basophil (Absolute #) 0.01 x10^3/uL (0.01-0.08); Eosinophil % 3.8 % (0.7-5.8); Eosinophil (Absolute #) 0.18 x10^3/uL (0.04-0.36); Hemoglobin 11.8 g/dL (11.2-15.7); IMMATURE GRAN # 0.02 x10^3u/L (0.001-0.031); IMMATURE GRAN % 0.4 % (0.001-0.429); Lymphocyte (Absolute #) 0.99 x10^3/uL (1.18-3.74); Lymphocytes % 20.6 % (19.3-51.7); Mean Cell Volume 91.4 fL (79.4-94.8); Mean Corpuscular Hemoglobin 29.1 pg (25.6-32.2); Mean Corpuscular Hgb Concent. 31.9 g/dL (32.2-35.5); Mean Platelet Volume 11.4 fL (9.4-12.3); Monocyte (Absolute #) 0.39 x10^3/uL (0.24-0.86); Monocytes % 8.1 % (4.7-12.5); Neutrophil % 66.9 % (34.0-71.1); Platelet Count 157 x10^3/uL (182-369); Red Blood Count 4.05 x10^6/uL (3.93-5.22); Red Cell Distribution Width 13.2 % (11.7-14.4); White Blood Count 4.8 x10^3/uL (3.98-10.04)
[2024-01-13 05:17] LABS: ALBUMIN 3.1 g/dL (3.5-5.0); ANION GAP 9.6 MEQ/L (5-15); BILIRUBIN,TOTAL 0.3 mg/dL (0.2-1.3); Calcium 8.4 mg/dL (8.4-10.2); Creatinine 1 0.83 mg/dL (0.52-1.04); EST GLOMERULAR FILTRATION RATE 70.8 ML/MIN; MAGNESIUM 1.9 mg/dL (1.6-2.3); Potassium 4.4 mmol/L (3.5-5.1); Total Protein 5.3 g/dL (6.3-8.2)
[2024-01-13] MEDS: ROCEPHIN 1 GM / 100 ML NaCl 1 GM/100 ML IVPB IV SCH (09:32)
[2024-01-13] MEDS: Acidophilus TABLET PO SCH (09:33)
[2024-01-13] MEDS: Ocuvite Tablet PO SCH (09:33)
[2024-01-13] MEDS: VITAMIN D PO SCH (09:33)
[2024-01-13] MEDS: THERAGRAN MULTIVITAMIN PO SCH (09:33)
[2024-01-13] MEDS: Protonix 40MG Tablet PO SCH (09:33)
[2024-01-13] MEDS: EFFEXOR 37.5 MG PO SCH (09:33)
[2024-01-13] MEDS: PLAVIX Tablet PO SCH (09:33)
[2024-01-13] MEDS: TYLENOL 325 MG PO PRN (09:48)
[2024-01-13] MEDS ORDERED: NON-FORMULARY ITEM (Omeprazole [Omeprazole] 40 MG Capsule.Dr) PO SCH (10:00)
[2024-01-13] MEDS ORDERED: FOLIC ACID PO SCH (10:00)
[2024-01-13] MEDS ORDERED: [UNRECOGNIZED DRUG - OTHER] PO SCH (10:00)
[2024-01-13] MEDS ORDERED: IRON PO SCH (10:00)
[2024-01-13] MEDS ORDERED: MULTIVITAMIN PO SCH (10:00)
[2024-01-13] MEDS ORDERED: NON-FORMULARY ITEM (L.Acidoph,Paracasei, B.Lactis [Probiotic] 1 EACH Capsule) PO SCH (10:00)
--- NOTE | 2024-01-13 11:34 | PCM.DS ---
Discharge Summary Date of Admission: 01/12/24 14:41 Date of Discharge: 01/13/24 Admitting Physician: DIPAK GALLEGOS MD Primary Care Provider: ODILIA ESCOBAR Allergies Allergies Sulfa (Sulfonamide Antibiotics) [Sulfa(Sulfonamide Antibiotics)] Allergy (Severe, Verified 01/12/24 08:02) [facility] Summary - Hospital Course Hospital Course: 01/12/24 is a 78 year old female with PMHX of Stroke, chronic constipation, cataracts, Hyperlipidemia, HTN, Type II DM, GERD, Anxiety, Depression, Interstital cystitis with recent procedure Wednesday, C3- C4, C5-C6 fusion 2008. Pt states since yesterday she has had nausea, diarrhea without blood, achy lower abdominal pain up to 10/10 in severity and a frontal headache up to 10/10 in severity; today vomiting x1 without blood; denies chest pain, shortness of air, fever, chills. Pt also states she has had low back pain for the past week which she usually has before her interstitial cystitis treatments every 3 weeks for the past 5 years. She was found to have a UTI in ER and pt states she has chron ic UTI's on chronic antibiotics for this. Back has resolved 0/10 pain with IV morphine gave in ER. Last time she had diarrhea was 8am. N/V resolved. H/A resolved. Will recheck labs. If doing better may d/c tomorrow as it will be her birthday and her family is planning a democrat for her. 01/13/24 Pt resting in bed. She has not had any N/V/D or abd pain since admission. She transitioned to a carb consistent diet last night and has had no problems eating. She is wanting to d/c today. Will continue oral antibiotics for UTI and follow culture OP. She denies CP, SOB,H/A, back pain, abd. pain, N/V/D. Discussed to make appointment with urology for complicated UTI and discuss concerns associated with chronic interstitial cystitis treatment. - Vitals & Intake/Output Vital Signs: Vital Signs Temperature 98.0 F 01/13/24 07:57 Pulse Rate 80 01/13/24 07:57 Respiratory Rate 18 01/13/24 07:57 Blood Pressure 164/72 01/13/24 07:57 O2 Sat by Pulse Oximetry 97 01/13/24 07:57 Intake & Output: Intake & Output 01/10/24 01/11/24 01/12/24 01/13/24 11:59 11:59 11:59 11:59 Intake Total 2077 Output Total 1200 Balance 877 Weight 79.3 kg 78 kg - Lab Result Diagrams: 01/13/24 04:34 01/13/24 04:34 Lab Results-Last 24 Hrs: Lab Results-Last 24 Hours 01/12/24 01/12/24 01/13/24 Range/Units 15:45 15:55 04:34 WBC 4.8 (3.98-10.04) x10^3/uL RBC 4.05 (3.93-5.22) x10^6/uL Hgb 11.8 (11.2-15.7) g/dL Hct 37.0 (34.1-44.9) % MCV 91.4 (79.4-94.8) fL MCH 29.1 (25.6-32.2) pg MCHC 31.9 L (32.2-35.5) g/dL RDW 13.2 (11.7-14.4) % Plt Count 157 L (182-369) x10^3/uL MPV 11.4 (9.4-12.3) fL Gran % 66.9 (34.0-71.1) % Immature Gran % (Auto) 0.4 (0.001-0.429) % Nucleat RBC Rel Count 0.0 (0.00-0.2) % Eos # (Auto) 0.18 (0.04-0.36) x10^3/uL Immature Gran # (Auto) 0.02 (0.001-0.031) x10^3u/L Absolute Lymphs (auto) 0.99 L (1.18-3.74) x10^3/uL Absolute Monos (auto) 0.39 (0.24-0.86) x10^3/uL Absolute Nucleated RBC 0.00 (0.00-0.012) x10^3u/L Lymphocytes % 20.6 (19.3-51.7) % Monocytes % 8.1 (4.7-12.5) % Eosinophils % 3.8 (0.7-5.8) % Basophils % 0.2 (0.1-1.2) % Absolute Granulocytes 3.21 (1.56-6.13) x10^3/uL Basophils # 0.01 (0.01-0.08) x10^3/uL Sodium 140 (135-145) mmol/L Potassium 4.2 (3.5-5.1) mmol/L Chloride 111 H (98-107) mmol/L Carbon Dioxide 23 (22-30) mmol/L Anion Gap 10.1 (5-15) MEQ/L BUN 23 H (7-17) mg/dL Creatinine 0.91 (0.52-1.04) mg/dL Estimated GFR 63.8 ML/MIN Glucose 89 (74-106) mg/dL Hemoglobin A1c 5.78 (4.5-6.0) % Calcium 9.1 D (8.4-10.2) mg/dL Magnesium (1.6-2.3) mg/dL Total Bilirubin 0.30 (0.2-1.3) mg/dL AST 42 H (14-36) U/L ALT 32 (0-35) U/L Alkaline Phosphatase 45 (38-126) U/L Serum Total Protein 6.0 L (6.3-8.2) g/dL Albumin 3.7 (3.5-5.0) g/dL TSH 3rd Generation (0.470-4.680) mIU/L 01/13/24 01/13/24 Range/Units 04:34 04:34 WBC (3.98-10.04) x10^3/uL RBC (3.93-5.22) x10^6/uL Hgb (11.2-15.7) g/dL Hct (34.1-44.9) % MCV (79.4-94.8) fL MCH (25.6-32.2) pg MCHC (32.2-35.5) g/dL RDW (11.7-14.4) % Plt Count (182-369) x10^3/uL MPV (9.4-12.3) fL Gran % (34.0-71.1) % Immature Gran % (Auto) (0.001-0.429) % Nucleat RBC Rel Count (0.00-0.2) % Eos # (Auto) (0.04-0.36) x10^3/uL Immature Gran # (Auto) (0.001-0.031) x10^3u/L Absolute Lymphs (auto) (1.18-3.74) x10^3/uL Absolute Monos (auto) (0.24-0.86) x10^3/uL Absolute Nucleated RBC (0.00-0.012) x10^3u/L Lymphocytes % (19.3-51.7) % Monocytes % (4.7-12.5) % Eosinophils % (0.7-5.8) % Basophils % (0.1-1.2) % Absolute Granulocytes (1.56-6.13) x10^3/uL Basophils # (0.01-0.08) x10^3/uL Sodium 138 (135-145) mmol/L Potassium 4.4 (3.5-5.1) mmol/L Chloride 112 H (98-107) mmol/L Carbon Dioxide 21 L (22-30) mmol/L Anion Gap 9.6 (5-15) MEQ/L BUN 19 H (7-17) mg/dL Creatinine 0.83 (0.52-1.04) mg/dL Estimated GFR 70.8 ML/MIN Glucose 101 (74-106) mg/dL Hemoglobin A1c (4.5-6.0) % Calcium 8.4 (8.4-10.2) mg/dL Magnesium 1.9 (1.6-2.3) mg/dL Total Bilirubin 0.30 (0.2-1.3) mg/dL AST 36 (14-36) U/L ALT 29 (0-35) U/L Alkaline Phosphatase 44 (38-126) U/L Serum Total Protein 5.3 L (6.3-8.2) g/dL Albumin 3.1 L (3.5-5.0) g/dL TSH 3rd Generation 0.925 (0.470-4.680) mIU/L Micro Results-Entire Visit: Microbiology 01/12/24 08:43 Urine Culture - Preliminary Clean Catch Midstream GRAM NEGATIVE ID AND SENSITIVITY PENDING Accuchecks Date 01/12/24 Date 01/12/24 Date 01/12/24 Date 01/12/24 Time 23:20 Time 22:30 Time 22:00 Time 17:00 - Radiology Exams Ordered Rad Exams-Entire Visit: Radiology Procedures Category Date Time Status ABDOMEN AND PELVIS W/0 CONTRAS [CT] Stat Exams 01/12/24 08:39 Completed HEAD WITHOUT CONTRAST [CT] Stat Exams 01/12/24 08:46 Completed - Procedures and Test Procedures and Tests throughout Hospitalization: Therapy Orders & Screens 01/12/24 17:33 Respiratory Therapy Assessment ONCE Comment: Diagnosis: Abdominal pain; vomiting; diarrhea; UTI Discharge Exam General Appearance: no apparent distress, alert, obese Neurologic Exam: alert, oriented x 3, cooperative, normal mood/affect, nml cerebellar function, sensation nml, No motor deficits Eye Exam: PERRL, EOMI, eyes nml inspection Ears, Nose, Throat Exam: normal ENT inspection, pharynx normal, moist mucous membranes Neck Exam: normal inspection, non-tender, supple, full range of motion Respiratory Exam: normal breath sounds, lungs clear, No respiratory distress Cardiovascular Exam: regular rate/rhythm, normal heart sounds Gastrointestinal/Abdomen Exam: soft, No tenderness, No mass Pelvic Exam: deferred Rectal Exam: deferred Back Exam: normal inspection, normal range of motion, No CVA tenderness, No vertebral tenderness Extremity Exam: normal inspection, normal range of motion Skin Exam: normal color, warm, dry Final Diagnosis/Problem List - Final Discharge Diagnosis/Problem (1) Complicated UTI (urinary tract infection) Current Visit: Yes Status: Acute Code(s): N39.0 - URINARY TRACT INFECTION, SITE NOT SPECIFIED (2) Back pain Current Visit: Yes Status: Acute Code(s): M54.9 - DORSALGIA, UNSPECIFIED (3) Abdominal pain Current Visit: Yes Status: Acute Code(s): R10.9 - UNSPECIFIED ABDOMINAL PAIN (4) Diarrhea Current Visit: Yes Status: Acute Code(s): R19.7 - DIARRHEA, UNSPECIFIED (5) Vomiting Current Visit: Yes Status: Acute Code(s): R11.10 - VOMITING, UNSPECIFIED (6) Chronic interstitial cystitis with hematuria Current Visit: No Status: Acute Code(s): N30.11 - INTERSTITIAL CYSTITIS (CHRONIC) WITH HEMATURIA (7) GERD (gastroesophageal reflux disease) Current Visit: No Status: Chronic Code(s): K21.9 - GASTRO-ESOPHAGEAL REFLUX DISEASE WITHOUT ESOPHAGITIS (8) Type 2 diabetes mellitus Current Visit: No Status: Chronic (9) Dehydration Current Visit: Yes Status: Acute Code(s): E86.0 - DEHYDRATION (10) Hypercalcemia Current Visit: Yes Status: Acute Code(s): E83.52 - HYPERCALCEMIA (11) Hypermagnesemia Current Visit: Yes Status: Acute Code(s): E83.41 - HYPERMAGNESEMIA (12) Anxiety with depression Current Visit: Yes Status: Chronic Code(s): F41.8 - OTHER SPECIFIED ANXIETY DISORDERS (13) Obesity (BMI 30.0-34.9) Current Visit: Yes Status: Chronic Assessment & Plan: (1) Complicated UTI (urinary tract infection) Current Visit: Yes Status: Acute Assessment & Plan: - Ceftriaxone started in ER continue - UC pending - IVF - Zofran - narcotic pain meds IV in ER, PO IP for pain PRN 01/12 - UC gram negative- sensitivity pending - will follow culture OP - will d/c with oral antibiotics Code(s): N39.0 - URINARY TRACT INFECTION, SITE NOT SPECIFIED (2) Back pain Current Visit: Yes Status: Acute Assessment & Plan: - Morphine started in ER - Change to Tramadol and tylenol PO PRN 01/12 - resolved Code(s): M54.9 - DORSALGIA, UNSPECIFIED (3) Abdominal pain Current Visit: Yes Status: Acute Code(s): R10.9 - UNSPECIFIED ABDOMINAL PAIN - CT abd/pelvis 01/12/24 Impression: 1. Diffuse colonic diarrhea. 2. Chronic findings including duodenal diverticulum, arteriosclerotic disease, chronic bony findings, and old granulomatous disease. 3. Remaining CT abdomen/pelvis without contrast exam is negative. - resolved - eating diet w/o concerns - Discussed in detail to take it easy eating (as it is her birthday today) as she could develop diarrhea again. (4) Diarrhea Current Visit: Yes Status: Acute Assessment & Plan: - Continue Probiotics 01/12 - resolved Code(s): R19.7 - DIARRHEA, UNSPECIFIED (5) Vomiting Current Visit: Yes Status: Acute Assessment & Plan: - Zofran PRN Code(s): R11.10 - VOMITING, UNSPECIFIED (6) Chronic interstitial cystitis with hematuria Current Visit: No Status: Acute Assessment & Plan: - Ceftriaxone IV started in ER continue - UC pending - Wednesday had a procedure with urologist for Interstital cyctitis, pt states they had a difficult time getting cath in and has felt worse daily since then. 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 Diabetes mellitus complication status: without complication Qualified Code(s): E11.9 - Type 2 diabetes mellitus without complications; Z79.4 - jail (current) use of insulin Assessment & Plan: - Carb Consistent diet - A1C pending - Hold metformin d/t BLOSSOM - Accuchecks Ac/HS - Low dose s/s - May use Dexcom (9) Dehydration Current Visit: Yes Status: Acute Assessment & Plan: - anion gap elevated - IVF - 2:2 N/V/D 01/12 - resolved - labs normal Code(s): E86.0 - DEHYDRATION (10) Hypercalcemia Current Visit: Yes Status: Acute Assessment & Plan: - Ca+ 11.2 in ER- recheck 01/12 - resolved Code(s): E83.52 - HYPERCALCEMIA (11) Hypermagnesemia Current Visit: Yes Status: Acute Assessment & Plan: - Mg+ 2.4 in ER- recheck - IVF gave in ER- continue - Tele 01/12 - resolved Code(s): E83.41 - HYPERMAGNESEMIA (12) Anxiety with depression Current Visit: Yes Status: Chronic Assessment & Plan: - Continue Effexor Code(s): F41.8 - OTHER SPECIFIED ANXIETY DISORDERS (13) Obesity (BMI 30.0-34.9) Current Visit: Yes Status: Chronic Assessment & Plan: - advised ADA diet and exercise control Code(s): E66.9 - OBESITY, UNSPECIFIED Code(s): E66.9 - OBESITY, UNSPECIFIED (14) Headache Current Visit: Yes Status: Resolved Assessment & Plan: - CT head 01/11 Inversion: Continue nonacute senile brain with remote lacunar infarct right basal ganglia and chronic left sphenoid sinusitis. - IV pain meds gave in ER - Tylenol PO 01/12 - resolved Code(s): R51.9 - HEADACHE, UNSPECIFIED - Discharge Discharge Date: 01/13/24 Disposition: Home, Self-Care Condition: Stable Prescriptions: Continue Tramadol HCl 50 mg [Ultram 50 mg] 50 mg PO QID Metformin HCl 1,000 mg PO QAM Gabapentin 400 mg PO TID Magnesium Oxide 400 mg [Mag-Ox 400] 400 mg PO DAILY Omeprazole 40 mg PO DAILY lisinopriL [Lisinopril] 40 mg PO DAILY Nortriptyline HCl 10 mg PO HS Venlafaxine HCl 37.5 mg [Effexor 37.5 mg] 37.5 mg PO DAILY Potassium Chloride Tab* [Klor Con] 10 meq PO BID Clopidogrel Bisulfate [PLAVIX Tablet] 75 mg PO DAILY #30 tablet L.acidoph,Paracasei, B.lactis [Probiotic] 1 cap PO DAILY [place]-3 Fatty Acids/Fish Oil [Fish Oil 1,000 mg Capsule] 1 each PO BID HydrALAzine HCL 25 MG TAB [Apresoline 25 MG TABLET] 25 mg PO QID Amlodipine Besylate 5 mg [Norvasc 5 mg] 5 mg PO BID Fenofibrate,Micronized 145 mg* [Tricor 145 MG] 145 mg PO DAILY Furosemide [Lasix] 20 mg PO DAILY Albuterol Sulfate [Albuterol Sulfate Hfa] 2 inh PO Q4H PRN PRN Reason: SOB/WHEEZING Hyoscyamine Sulfate 0.125 mg [Anaspaz 0.125 mg] 0.125 mg PO Q6H PRN PRN Reason: Muscle Spasms Phenazopyridine HCl 200 mg [Pyridium 200 mg] 200 mg PO TID PRN PRN Reason: Pain Rosuvastatin Calcium 10 mg PO DAILY Semaglutide [Ozempic] 0.25 mg SQ WEEKLY Metformin HCl 500 mg [Glucophage 500 MG] 500 mg PO EVENING MEAL Cholecalciferol (Vitamin D3) [Vitamin D3] 25 mcg PO DAILY Nitroglycerin 0.4 mg Tablet [Nitrostat 0.4 MG Tablet] 0.4 mg PO UD Beta-Carotene(A) W-C & E/Min [Ocuvite Tablet] 1 tab PO DAILY Multivitamin/Iron/Folic Acid [Eq Complete Multivitamin Tab] 1 each PO DAILY Fluticasone Propionate 1 spray IH DAILY PRN PRN PRN Reason: Allergies Discontinued cephALEXin [Keflex] 500 mg PO DAILY Additional Instructions: Hold Keflex while taking cefuroxime. Follow up with urology for complicated UTI and Chronic interstitial cystitis procedure concerns. Try to eat a bland diet until feeling better as to not cause diarrhea. A BRAT diet would be best. Follow up with: ODILIA ESCOBAR [Primary Care Provider] -
[2024-01-13 12:15] VITALS: BP 179/80; PULSE 81; RESP 20; TEMP 97.5; O2SAT 95
== END 2024-01-13 12:10 | disposition home or self-care (01) ==
LOC: ED 07:53 → MED SURG 14:41
PROVIDERS: ADMIT Internal Medicine; ATTEND Internal Medicine
DX: N39.0 Urinary tract infection, site not specified (principal); M54.9 Dorsalgia, unspecified; R10.9 Unspecified abdominal pain; R19.7 Diarrhea, unspecified; R11.10 Vomiting, unspecified; K21.9 Gastro-esophageal reflux disease without esophagitis; E11.9 Type 2 diabetes mellitus without complications; E86.0 Dehydration; E83.52 Hypercalcemia; E83.41 Hypermagnesemia; F41.8 Other specified anxiety disorders; E66.9 Obesity, unspecified; R51.9 Headache, unspecified; I10 Essential (primary) hypertension; E78.5 Hyperlipidemia, unspecified; Z79.899 Other long term (current) drug therapy; Z86.73 Personal history of transient ischemic attack (TIA), and cerebral infarction without residual deficits
CPT/HCPCS: 36000; 36415; 70450; 74176; 80053; 81001; 82150; 83036; 83690; 83735; 84443; 85025; 87077; 87086; 87186; 93268; 96360; 96361; 96365; 96374; 96375; 96376; 99284; G0378; Q3014; J0696; J2270; J2405; A9270-GY